=== PATIENT | female | born 1940 | race African-American/Black ===

== ENCOUNTER 2016-04-02 22:10 | Inpatient (IN) | payer MEDICAID, MEDICARE ==
[~2016-04-02] VITALS: Ht 160 cm; Wt 72.6 kg
[~2016-04-02 22:10] MED LIST: ANUSOL HC1 SUPP RECTAL; ATIVAN0.5 MG ORAL; BRIMONIDINE TART5 ML BOTH EYES; CATAPRES0.1 MG ORAL; CLARITIN10 M2 ORAL; COLACE100 MG ORAL; DIAZEPAM2 MG ORAL; FUROSEMIDE20 M1 ORAL; IRON18 M1 PO; LACTULOSE20 GM/301 ORAL; LANSOPRAZOLE15 MG ORAL; METFORMIN HCL500 M1 ORAL; METOPROLOL TART25 MG ORAL; METOPROLOL TART50 MG ORAL; MIRALAX17 G2 ORAL; OMEPRAZOLE40 M1 ORAL; POTASSIUM99 M3 PO; PROTONIX40 MG ORAL; QVAR7.3 GM INH; RISPERDAL1 MG ORAL; RISPERIDONE1 MG/1 ML PO; TRAMADOL HCL50 MG ORAL; UNOBMED; ZALEPLON10 MG ORAL; ZOLPIDEM TARTRAT5 MG ORAL
[2016-04-02 22:17] VITALS: BP 167/56
--- NOTE | 2016-04-02 22:40 | Emergency Room Report ---
History of Present Illness General Chief Complaint: Generalized Weakness Source: Patient, Medical Record, EMS Present Illness HPI Is a 74-year-old female with a history of CAD. She presents with chief complaint of generalized weakness and altered mental status. Onset for about a day. No focal deficit. No fever or chills. Patient is a poor historian so history is from EMS who took it from family. History is also from medical records. Patient denies any complaint. Allergies: Coded Allergies: No Known Allergies (Unverified , 12/05/12) Patient History Past Medical History: see triage record, old chart reviewed, CAD Past Surgical History: other Pertinent Family History: none Social History: Denies: smoking Now: No Immunizations: other Reviewed Nursing Documentation: PMH: Agreed, PSxH: Agreed Nursing Documentation-PMH Past Medical History: No History, Except For Hx Hypertension: Yes Hx Diabetes: Yes Hx Cancer: No Hx Gastrointestinal Problems: Yes Hx Dementia: Yes Review of Systems Constitutional: Reports: weakness All Other Systems: limited - Secondary to patient condition and poor historian. Physical Exam Vital Signs Date Time Temp Pulse Resp B/P Pulse Ox O2 Delivery O2 Flow Rate FiO2 04/02/16 22:07 97.2 69 14 139/56 100 Room Air vitals normal Sp02 EP Interpretation: reviewed, normal General Appearance: other - Sleepy, Chronically Ill Head: normocephalic, atraumatic Eyes: bilateral eye EOMI, bilateral eye PERRL, bilateral eye other - pale conjunctiva ENT: hearing grossly normal, normal pharynx Neck: full range of motion, supple, no meningismus Respiratory: chest non-tender, lungs clear, normal breath sounds Cardiovascular #1: regular rate, rhythm, no murmur Gastrointestinal: normal bowel sounds, non tender, no mass, no organomegaly, no bruit, non-distended Musculoskeletal: back normal, normal range of motion Neurologic: other - No focal deficit Psychiatric: mood/affect normal Skin: warm/dry, pallor Procedures Critical Care Time Critical Care Time Critical care is mandated in this patient who presented with severe anemia requiring transfusion. Patient require my urgent intervention to attenuate the risks of metabolic collapse which may lead to cardiovascular collapse and . Critical care time is 35 minutes excluding any reportable procedure. Critical care time included evaluation, multiple reevaluation, looking at old charts, interpreting laboratory and diagnostic data, discussing case with patient and family and consultants, and charting. Medical Decision Making Diagnostic Impression: Primary Impression: Anemia Qualified Codes: D64.9 - Anemia, unspecified Additional Impressions: Hepatic encephalopathy Proteinuria CHF exacerbation Qualified Codes: I50.9 - Heart failure, unspecified Thrombocytopenia ER Course Patient presents with weakness and altered mental status. She looks very pale and has severe anemia. We'll write for blood transfusion. Patient will be admitted for blood transfusion. I discussed the case with Dr. Segura who will admit. No evidence of ACS, PE, dissection to name a few. Laboratory Tests Test 04/02/16 22:30 04/03/16 00:20 White Blood Count 3.7 K/UL (4.8-10.8) L Red Blood Count 1.39 M/UL (4.20-5.40) L Hemoglobin 3.1 G/DL (12.0-16.0) *L Hematocrit 11.0 % (37.0-47.0) L Mean Corpuscular Volume 79 FL (80-99) L Mean Corpuscular Hemoglobin 22.4 PG (27.0-31.0) L Mean Corpuscular Hemoglobin Concent 28.3 G/DL (32.0-36.0) L Red Cell Distribution Width 24.8 % (11.6-14.8) H Platelet Count 92 K/UL (150-450) L Mean Platelet Volume 12.2 FL (6.5-10.1) H Neutrophils (%) (Auto) % (45.0-75.0) Lymphocytes (%) (Auto) % (20.0-45.0) Monocytes (%) (Auto) % (1.0-10.0) Eosinophils (%) (Auto) % (0.0-3.0) Basophils (%) (Auto) % (0.0-2.0) Neutrophils % (Manual) Pending Lymphocytes % (Manual) Pending Platelet Estimate Pending Platelet Morphology Pending Prothrombin Time 14.7 SEC (9.30-11.50) H Prothromb Time International Ratio 1.4 (0.9-1.1) H Activated Partial Thromboplast Time 28 SEC (23-33) Urine Color Yellow Urine Appearance Clear Urine pH 6 (4.5-8.0) Urine Specific [place] 1.015 (1.005-1.035) Urine Protein 2+ (NEGATIVE) H Urine Glucose (UA) Negative (NEGATIVE) Urine Ketones 2+ (NEGATIVE) H Urine Occult Blood Negative (NEGATIVE) Urine Nitrite Negative (NEGATIVE) Urine Bilirubin Negative (NEGATIVE) Urine Urobilinogen 1 MG/DL (0.0-1.0) H Urine Leukocyte Esterase 1+ (NEGATIVE) H Urine RBC 0-2 /HPF (0 - 2) Urine WBC 0-2 /HPF (0 - 2) Urine Squamous Epithelial Cells Moderate /LPF (NONE/OCC) H Urine Bacteria Few /HPF (NONE) Sodium Level 144 mEQ/L (135-145) Potassium Level 4.1 mEQ/L (3.4-4.9) Chloride Level 109 mEQ/L (98-107) H Carbon Dioxide Level 18 mEQ/L (20-30) L Anion Gap 17 (5-15) H Blood Urea Nitrogen 14 mg/dL (7-23) Creatinine 1.0 mg/dL (0.5-0.9) H Estimat Glomerular Filtration Rate mL/min (>60) Glucose Level 95 mg/dL (74-106) Calcium Level 8.6 mg/dL (8.6-10.2) Total Bilirubin 2.9 mg/dL (0.0-1.2) H Direct Bilirubin 1.8 mg/dL (0.1-0.3) H Aspartate Amino Transf (AST/SGOT) 57 U/L (5-40) H Alanine Aminotransferase (ALT/SGPT) 15 U/L (3-33) Alkaline Phosphatase 91 U/L (35-104) Total Creatine Kinase 60 U/L (26-140) Creatine Kinase MB < 1.5 ng/mL (< 3.8) Creatine Kinase MB Relative Index Troponin I < 0.30 ng/mL (<=0.30) Pro-B-Type Natriuretic Peptide 2376 pg/mL (0-125) H Total Protein 6.2 g/dL (6.6-8.7) L Albumin 2.9 g/dL (3.5-5.2) L Globulin 3.3 g/dL Albumin/Globulin Ratio 0.8 (1.0-2.7) L Ammonia Pending Lab Results Impression labs show severe anemia EKG Diagnostic Results Rate: normal Rhythm: NSR ST Segments: no acute changes Rhythm Strip Diag. Results EP Interpretation: yes Rate: 60 Rhythm: NSR, no PVC's, no ectopy Chest X-Ray Diagnostic Results EP Interpretation: Yes Findings: no effusion, no pneumothorax, no acute cardiopulmonary disease, other - Cardiomegaly with CHF Number of Views: 1 Last Vital Signs Date Time Temp Pulse Resp B/P Pulse Ox O2 Delivery O2 Flow Rate FiO2 04/02/16 22:17 62 10 167/56 100 Room Air 04/02/16 22:07 97.2 Status: improved Disposition: ADMITTED INPATIENT Condition: Critical PHOENIX WALKER M.D. Apr 02, 2016 22:40
[2016-04-02 22:56] LABS: INR 1.4 (0.9-1.1); PROTHROMBIN TIME 14.7 SEC (9.30-11.50)
[2016-04-02 23:01] LABS: ALANINE AMINOTRANSFERASE 15 U/L (3-33); ALBUMIN/GLOBULIN RATIO 0.8 (1.0-2.7); ANION GAP 17 (5-15); ASPARTATE AMINO TRANSFERASE 57 U/L (5-40); CALCIUM 8.6 mg/dL (8.6-10.2); CARBON DIOXIDE 18 mEQ/L (20-30); CHLORIDE 109 mEQ/L (98-107); HEMOLYSIS 0; POTASSIUM 4.1 mEQ/L (3.4-4.9); SODIUM 144 mEQ/L (135-145); TOTAL PROTEIN 6.2 g/dL (6.6-8.7); TROPONIN I < 0.30 ng/mL (<=0.30)
[2016-04-02 23:06] LABS: APPEARANCE,URINE CLEAR; KETONES,URINE 2+ (NEGATIVE); LEUKOCYTE ESTERASE ,URINE 1+ (NEGATIVE); NITRITE,URINE NEGATIVE (NEGATIVE); PH,URINE 6 (4.5-8.0); PROTEIN,URINE 2+ (NEGATIVE); UROBILINOGEN,URINE 1 MG/DL (0.0-1.0)
[2016-04-02 23:13] LABS: CKMB < 1.5 ng/mL (< 3.8)
[2016-04-02] MEDS ORDERED: Mylanta II UD 30ml ORAL PRN (23:15)
[2016-04-02] MEDS ORDERED: Nitroglycerin Subl 0.4mg tab (Bottle Of 25) SL PRN (23:15)
[2016-04-02] MEDS ORDERED: Morphine Sulfate 2mg/ml Inj IVP PRN (23:15)
[2016-04-02] MEDS ORDERED: Miralax 17gm pkt ORAL PRN (23:15)
[2016-04-02 23:24] LABS: BILIRUBIN,DIRECT 1.8 mg/dL (0.1-0.3)
[2016-04-02 23:49] LABS: BACTERIA,URINE FEW /HPF; RBC,URINE 0-2 /HPF (0 - 2); SQUAMOUS EPITHELIAL CELL,UR MODERATE /LPF (NONE/OCC); WBC,URINE 0-2 /HPF (0 - 2)
[2016-04-02 23:50] VITALS: BP 138/57
[2016-04-02 23:53] LABS: MEAN CORPUSCULAR HEMOGLOBIN 22.4 PG (27.0-31.0); MEAN CORPUSCULAR HGB CONC 28.3 G/DL (32.0-36.0); MEAN CORPUSCULAR VOLUME 79 FL (80-99); MEAN PLATELET VOLUME 12.2 FL (6.5-10.1); PLATELET COUNT 92 K/UL (150-450); RED BLOOD COUNT 1.39 M/UL (4.20-5.40); RED CELL DISTRIBUTION WIDTH 24.8 % (11.6-14.8); WHITE BLOOD COUNT 3.7 K/UL (4.8-10.8)
[2016-04-03] VITALS (8 sets, daily range): BP systolic 122–156; BP diastolic 40–72
[2016-04-03] MEDS ORDERED: UNOBMED (00:02)
[2016-04-03] MEDS: D5 1/2NS 1,000 ML IV SCH ×2 (01:00→14:20)
[2016-04-03 03:13] LABS: BASOPHILS % (MANUAL) 5 % (0-2); EOSINOPHILS % (MANUAL) 4 % (0-3); LYMPHOCYTES % (MANUAL) 18 % (20-45); NEUTROPHILS % (MANUAL) 63 % (45-75); TOTAL CELLS COUNTED 100
[2016-04-03 03:14] LABS: ANISOCYTOSIS 2+; BAND NEUTROPHILS % (MANUAL) 0 % (0-8); PLATELET ESTIMATE DECREASED; POIKILOCYTOSIS 2+
[2016-04-03 03:17] LABS: OVALOCYTES 1+
[2016-04-03 03:18] LABS: TEAR DROP CELLS 1+
--- NOTE | 2016-04-03 12:22 | History and Physical ---
History of Present Illness General Date patient seen: Apr 03, 2016 Reason for Hospitalization: Generalized Weakness Present Illness HPI 74-year-old female with a history of CAD, cirrhosis brought in by paramedics with CC of eneralized weakness and altered mental status. O Patient is a poor historian so history is from EMS who took it from family. History is also from medical records. Her hemoglobin was found to be 3. therefore she is admitted to telemetry. Currently she is sleepy and can't give much information. Allergies: Coded Allergies: No Known Allergies (Unverified , 12/05/12) Medication History Scheduled Docusate Sodium* (Colace*), 100 MG ORAL TWICE A DAY Hydrocortisone (Anucort-Hc), 1 SUPP RECTAL TWICE A DAY Metoprolol Tartrate* (Metoprolol Tartrate*), 50 MG ORAL Q12HR Pantoprazole* (Protonix*), 40 MG ORAL Q12HR Risperidone* (Risperdal*), 1 MG ORAL BEDTIME Scheduled PRN Polyethylene Glycol 3350* (Miralax*), 17 GM ORAL DAILYPRN PRN for Constipation Miscellaneous Medications Unable to Obtain Medications (Unable To Obtain Meds), (Reported) Unable to Obtain Medications (Unable To Obtain Meds), (Reported) Patient History Healthcare decision maker Resuscitation status Full Code Advanced Directive on File Past Medical/Surgical History Past Medical/Surgical History: (1) Severe anemia (2) Hepatic encephalopathy (3) Schizoaffective disorder (4) HTN (hypertension) (5) Cirrhosis (6) Thrombocytopenia (7) Elevated CEA (8) Coagulopathy Review of Systems Constitutional: Reports: no symptoms Physical Exam Lines, tubes and drains: peripheral HEENT: normocephalic Neck: non-tender, normal alignment Respiratory/Chest: chest wall non-tender, lungs clear Cardiovascular/Chest: normal peripheral pulses Abdomen: normal bowel sounds Last 24 Hour Vital Signs Date Time Temp Pulse Resp B/P Pulse Ox O2 Delivery O2 Flow Rate FiO2 04/03/16 11:20 97.7 72 18 134/68 98 Room Air 04/03/16 08:00 81 04/03/16 07:57 97.5 71 18 154/64 97 Room Air 04/03/16 04:00 97.7 64 16 129/56 95 Room Air 04/03/16 03:39 97.0 71 12 131/58 100 Room Air 04/03/16 03:22 71 12 131/58 100 Room Air 04/03/16 02:07 97.0 66 11 133/59 100 Room Air 04/03/16 01:11 64 11 122/40 100 Room Air 04/02/16 23:50 97.0 67 12 138/57 100 Room Air 04/02/16 22:17 62 10 167/56 100 Room Air 04/02/16 22:07 97.2 69 14 139/56 100 Room Air Intake and Output 04/02/16 04/03/16 19:00 07:00 Intake Total 1000 ml Output Total 665 ml Balance 335 ml Intake Oral 0 ml IV Total 1000 ml Output Urine Total 665 ml Laboratory Tests Test 04/02/16 22:30 04/03/16 00:20 White Blood Count 3.7 K/UL (4.8-10.8) L Red Blood Count 1.39 M/UL (4.20-5.40) L Hemoglobin 3.1 G/DL (12.0-16.0) *L Hematocrit 11.0 % (37.0-47.0) L Mean Corpuscular Volume 79 FL (80-99) L Mean Corpuscular Hemoglobin 22.4 PG (27.0-31.0) L Mean Corpuscular Hemoglobin Concent 28.3 G/DL (32.0-36.0) L Red Cell Distribution Width 24.8 % (11.6-14.8) H Platelet Count 92 K/UL (150-450) L Mean Platelet Volume 12.2 FL (6.5-10.1) H Neutrophils (%) (Auto) % (45.0-75.0) Lymphocytes (%) (Auto) % (20.0-45.0) Monocytes (%) (Auto) % (1.0-10.0) Eosinophils (%) (Auto) % (0.0-3.0) Basophils (%) (Auto) % (0.0-2.0) Differential Total Cells Counted 100 Neutrophils % (Manual) 63 % (45-75) Lymphocytes % (Manual) 18 % (20-45) L Monocytes % (Manual) 10 % (1-10) Eosinophils % (Manual) 4 % (0-3) H Basophils % (Manual) 5 % (0-2) H Band Neutrophils 0 % (0-8) Platelet Estimate Decreased L Platelet Morphology See comment Poikilocytosis 2+ Anisocytosis 2+ Tear Drop Cells 1+ Ovalocytes 1+ Prothrombin Time 14.7 SEC (9.30-11.50) H Prothromb Time International Ratio 1.4 (0.9-1.1) H Activated Partial Thromboplast Time 28 SEC (23-33) Urine Color Yellow Urine Appearance Clear Urine pH 6 (4.5-8.0) Urine Specific [place] 1.015 (1.005-1.035) Urine Protein 2+ (NEGATIVE) H Urine Glucose (UA) Negative (NEGATIVE) Urine Ketones 2+ (NEGATIVE) H Urine Occult Blood Negative (NEGATIVE) Urine Nitrite Negative (NEGATIVE) Urine Bilirubin Negative (NEGATIVE) Urine Urobilinogen 1 MG/DL (0.0-1.0) H Urine Leukocyte Esterase 1+ (NEGATIVE) H Urine RBC 0-2 /HPF (0 - 2) Urine WBC 0-2 /HPF (0 - 2) Urine Squamous Epithelial Cells Moderate /LPF (NONE/OCC) H Urine Bacteria Few /HPF (NONE) Sodium Level 144 mEQ/L (135-145) Potassium Level 4.1 mEQ/L (3.4-4.9) Chloride Level 109 mEQ/L (98-107) H Carbon Dioxide Level 18 mEQ/L (20-30) L Anion Gap 17 (5-15) H Blood Urea Nitrogen 14 mg/dL (7-23) Creatinine 1.0 mg/dL (0.5-0.9) H Estimat Glomerular Filtration Rate mL/min (>60) Glucose Level 95 mg/dL (74-106) Calcium Level 8.6 mg/dL (8.6-10.2) Total Bilirubin 2.9 mg/dL (0.0-1.2) H Direct Bilirubin 1.8 mg/dL (0.1-0.3) H Aspartate Amino Transf (AST/SGOT) 57 U/L (5-40) H Alanine Aminotransferase (ALT/SGPT) 15 U/L (3-33) Alkaline Phosphatase 91 U/L (35-104) Total Creatine Kinase 60 U/L (26-140) Creatine Kinase MB < 1.5 ng/mL (< 3.8) Creatine Kinase MB Relative Index Troponin I < 0.30 ng/mL (<=0.30) Pro-B-Type Natriuretic Peptide 2376 pg/mL (0-125) H Total Protein 6.2 g/dL (6.6-8.7) L Albumin 2.9 g/dL (3.5-5.2) L Globulin 3.3 g/dL Albumin/Globulin Ratio 0.8 (1.0-2.7) L Ammonia 47 umol/L (11-51) Height (Feet): 5 Height (Inches): 3.00 Weight (Pounds): 160 Medications Current Medications Medications (Trade) Dose Ordered Sig/Bing Route PRN Reason Start Time Stop Time Status Last Admin Dose Admin Acetaminophen (Tylenol) 650 mg Q4H PRN ORAL fever 04/02/16 23:15 05/02/16 23:14 Al Hydroxide/Mg Hydroxide (Mylanta II) 30 ml Q6H PRN ORAL dyspepsia 04/02/16 23:15 05/02/16 23:14 Dextrose (Dextrose 50%) STAT PRN IV Hypoglycemia 04/02/16 23:15 05/02/16 23:14 Dextrose/Sodium Chloride (D5 0.45% NS) 1,000 ml @ 75 mls/hr [id number] IV 04/03/16 01:00 05/03/16 00:59 Diphenhydramine HCl (Benadryl) 25 mg Q6H PRN ORAL Itching/Pruritis 04/02/16 23:15 05/02/16 23:14 Morphine Sulfate (Morphine Sulfate) 2 mg Q4H PRN IVP severe Pain (Pain Scale 7-10) 04/02/16 23:15 04/09/16 23:14 Nitroglycerin (Ntg) 0.4 mg Q5M X 3 DOSES PRN SL Prn Chest Pain 04/02/16 23:15 05/02/16 23:14 Ondansetron HCl (Zofran) 4 mg Q6H PRN IVP Nausea & Vomiting 04/02/16 23:15 05/02/16 23:14 Polyethylene Glycol (Miralax) 17 gm HSPRN PRN ORAL Constipation 04/02/16 23:15 05/02/16 23:14 Risperidone 1 mg 1 mg BEDTIME ORAL 04/03/16 21:00 05/03/16 20:59 Temazepam (Restoril) 15 mg HSPRN PRN ORAL Insomnia 04/02/16 23:15 04/09/16 23:14 Assessment/Plan Problem List: (1) Severe anemia ICD Codes: D64.9 - Anemia, unspecified SNOMED: 585059842 (2) Cirrhosis ICD Codes: K74.60 - Unspecified cirrhosis of liver SNOMED: 71516993 (3) Coagulopathy ICD Codes: D68.9 - Coagulation defect, unspecified SNOMED: 58858207 (4) Elevated CEA ICD Codes: R97.0 - Elevated carcinoembryonic antigen [CEA] SNOMED: 65950785, 763919233 (5) Thrombocytopenia ICD Codes: D69.6 - Thrombocytopenia SNOMED: 385237652 (6) Schizoaffective disorder ICD Codes: F25.9 - Schizoaffective disorder, unspecified SNOMED: 84590358 (7) HTN (hypertension) ICD Codes: I10 - Essential (primary) hypertension SNOMED: 93503964 Assessment/Plan transfuse 5-6 units check coagulation GI work up. correct coagulopathy check h/h in am check CEA again GENESIS ANDRES Apr 03, 2016 12:21
[2016-04-03] MEDS ORDERED: Phytonadione 10 MG in D5W 50 ML IVPB ONE ×2 (14:00→16:00)
--- NOTE | 2016-04-03 15:30 | GI Initial Consult Note ---
AshleyMaris Villagran N.P. 04/03/16 1529: History of Present Illness General Date patient seen: Apr 03, 2016 Reason for Hospitalization: Generalized Weakness Referring physician: GENESIS ANDRES Reason for Consultation: ANEMIA Present Illness HPI Is a 74-year-old female with a history of CAD. She presents with chief complaint of generalized weakness and altered mental status. Onset for about a day. No focal deficit. No fever or chills. Patient is a poor historian so history is from EMS who took it from family. History is also from medical records. Patient denies any complaint. GI CONSULT - HPI as noted. Pt seen on floor, awake, alert AMS NAD. No active signs/sx of N/V or source of bleeding. Pt denies any abdominal pain and denies any diarrhea. Pt was seen last year here at [facility] with noted findings and procedures as listed below. She presents today with pancytopenia, abnormal LFTs and hypoalbuminemia. Last admission AP CT impression: Areas of colon wall thickening, probably artifact of under distention, although colitis cannot be completely excluded. No definite acute abdominal process otherwise Somewhat atrophic liver with nodular surface characteristics, consistent with cirrhosis Evidence of portal hypertension, presumed secondary to the above, with mild splenomegaly, multiple varices as described Anasarca, with extensive abdominal wall edema, in addition to the above mentioned ascites and pleural fluid Cholelithiasis. Gallbladder wall edema is probably secondary to portal hypertension, but acute cholecystitis cannot be completely ruled out. There is high clinical suspicion, and nuclear medicine hepatobiliary scan should be considered DATE OF PROCEDURE: 06/01/2015 SURGEON: Kenneth Hickman M.D. INDICATIONS: Cirrhosis and upper gastrointestinal bleeding. SUMMARY OF FINDINGS: 1. Gastritis, status post biopsy. 2. One gastric arteriovenous malformation. 3. 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 RECOMMENDATIONS: 1. Follow up biopsies and treat accordingly. 2. If the patient shows any sign and symptoms of recurrent upper gastrointestinal bleeding, may need another endoscopy with APC of the AVM and also the GAVE when the platelets are better. DATE OF PROCEDURE: 07/10/2015 SURGEON: Kenneth Hickman M.D. PROCEDURE PERFORMED: Colonoscopy. INDICATIONS: Anemia. SUMMARY OF FINDINGS: 1. Poor colonoscopy prep especially in the right colon. 2. No obvious source for anemia. 3. Internal hemorrhoids. RECOMMENDATIONS: At this time, the patient had an endoscopy almost over a month ago which had some arteriovenous malformations in the stomach which were cauterized. If the patient continues to have drop in hemoglobin and hematocrit with stool OB positivity may need a capsule endoscopy for evaluation of the small intestine arteriovenous malformations although with this patient's current psychiatric problem will be very difficult to get that test done. We will follow. Home Meds Active Scripts Docusate Sodium* (COLACE*) 100 Mg Capsule, 100 MG ORAL TWICE A DAY, #60 CAP Prov:Skip ([facility]),Liz PRINCE 07/11/15 Risperidone* (RISPERDAL*) 1 Mg Tablet, 1 MG ORAL BEDTIME, #30 TAB Prov:Skip ([facility])Liz NP 07/10/15 Polyethylene Glycol 3350* (MIRALAX*) 17 Gm Powd.pack, 17 GM ORAL DAILYPRN Y for Constipation, #10 PACK Prov:Skip ([facility]),Liz PRINCE 07/10/15 Hydrocortisone (Anucort-Hc) Y Supp, 1 SUPP RECTAL TWICE A DAY, #30 SUPP Prov:Skip ([facility])iLz NP 07/10/15 Pantoprazole* (PROTONIX*) 40 Mg Tablet.dr, 40 MG ORAL Q12HR, #60 TAB Prov:Skip ([facility])Liz NP 06/05/15 Metoprolol Tartrate* (METOPROLOL TARTRATE*) 50 Mg Tablet, 50 MG ORAL Q12HR, #60 TAB Prov:Skip ([facility]),Liz PACKAGE COLLECTOR 06/05/15 Reported Medications Unable to Obtain Medications (UNABLE TO OBTAIN MEDS) 1 Ea Ea 04/03/16 Unable to Obtain Medications (UNABLE TO OBTAIN MEDS) 1 Ea Ea 05/29/15 Med list reviewed/reconciled: Yes Allergies: Coded Allergies: No Known Allergies (Unverified , 12/05/12) Patient History Limited by: medical condition History Provided By: Medical Record [facility] Narrative PAST MEDICAL HISTORY: Significant for rhabdomyolysis, UTI, sepsis, pneumonia, iron-deficiency anemia, thrombocytopenia, hypovolemia, albuminemia, elevated CEA, and end-stage liver disease. PAST PSYCHIATRIC HISTORY: She is diagnosed with schizophrenia and has had several psychiatric hospitalizations. The patient is currently being treated with temazepam and lorazepam. The patient is on no antipsychotics. Review of Systems All Other Systems: limited Physical Exam Vital Signs Date Time Temp Pulse Resp B/P Pulse Ox O2 Delivery O2 Flow Rate FiO2 04/02/16 22:07 97.2 69 14 139/56 100 Room Air Sp02 EP Interpretation: reviewed Labs Laboratory Tests Test 04/02/16 22:30 04/03/16 00:20 White Blood Count 3.7 K/UL (4.8-10.8) L Red Blood Count 1.39 M/UL (4.20-5.40) L Hemoglobin 3.1 G/DL (12.0-16.0) *L Hematocrit 11.0 % (37.0-47.0) L Mean Corpuscular Volume 79 FL (80-99) L Mean Corpuscular Hemoglobin 22.4 PG (27.0-31.0) L Mean Corpuscular Hemoglobin Concent 28.3 G/DL (32.0-36.0) L Red Cell Distribution Width 24.8 % (11.6-14.8) H Platelet Count 92 K/UL (150-450) L Mean Platelet Volume 12.2 FL (6.5-10.1) H Neutrophils (%) (Auto) % (45.0-75.0) Lymphocytes (%) (Auto) % (20.0-45.0) Monocytes (%) (Auto) % (1.0-10.0) Eosinophils (%) (Auto) % (0.0-3.0) Basophils (%) (Auto) % (0.0-2.0) Differential Total Cells Counted 100 Neutrophils % (Manual) 63 % (45-75) Lymphocytes % (Manual) 18 % (20-45) L Monocytes % (Manual) 10 % (1-10) Eosinophils % (Manual) 4 % (0-3) H Basophils % (Manual) 5 % (0-2) H Band Neutrophils 0 % (0-8) Platelet Estimate Decreased L Platelet Morphology See comment Poikilocytosis 2+ Anisocytosis 2+ Tear Drop Cells 1+ Ovalocytes 1+ Prothrombin Time 14.7 SEC (9.30-11.50) H Prothromb Time International Ratio 1.4 (0.9-1.1) H Activated Partial Thromboplast Time 28 SEC (23-33) Urine Color Yellow Urine Appearance Clear Urine pH 6 (4.5-8.0) Urine Specific [place] 1.015 (1.005-1.035) Urine Protein 2+ (NEGATIVE) H Urine Glucose (UA) Negative (NEGATIVE) Urine Ketones 2+ (NEGATIVE) H Urine Occult Blood Negative (NEGATIVE) Urine Nitrite Negative (NEGATIVE) Urine Bilirubin Negative (NEGATIVE) Urine Urobilinogen 1 MG/DL (0.0-1.0) H Urine Leukocyte Esterase 1+ (NEGATIVE) H Urine RBC 0-2 /HPF (0 - 2) Urine WBC 0-2 /HPF (0 - 2) Urine Squamous Epithelial Cells Moderate /LPF (NONE/OCC) H Urine Bacteria Few /HPF (NONE) Sodium Level 144 mEQ/L (135-145) Potassium Level 4.1 mEQ/L (3.4-4.9) Chloride Level 109 mEQ/L (98-107) H Carbon Dioxide Level 18 mEQ/L (20-30) L Anion Gap 17 (5-15) H Blood Urea Nitrogen 14 mg/dL (7-23) Creatinine 1.0 mg/dL (0.5-0.9) H Estimat Glomerular Filtration Rate mL/min (>60) Glucose Level 95 mg/dL (74-106) Calcium Level 8.6 mg/dL (8.6-10.2) Total Bilirubin 2.9 mg/dL (0.0-1.2) H Direct Bilirubin 1.8 mg/dL (0.1-0.3) H Aspartate Amino Transf (AST/SGOT) 57 U/L (5-40) H Alanine Aminotransferase (ALT/SGPT) 15 U/L (3-33) Alkaline Phosphatase 91 U/L (35-104) Total Creatine Kinase 60 U/L (26-140) Creatine Kinase MB < 1.5 ng/mL (< 3.8) Creatine Kinase MB Relative Index Troponin I < 0.30 ng/mL (<=0.30) Pro-B-Type Natriuretic Peptide 2376 pg/mL (0-125) H Total Protein 6.2 g/dL (6.6-8.7) L Albumin 2.9 g/dL (3.5-5.2) L Globulin 3.3 g/dL Albumin/Globulin Ratio 0.8 (1.0-2.7) L Ammonia 47 umol/L (11-51) General Appearance: no apparent distress, alert Head: normocephalic EENT: normal ENT inspection Neck: supple Respiratory: normal breath sounds, no respiratory distress Cardiovascular: normal rate Gastrointestinal: normal inspection, non tender, soft Rectal: deferred Neurologic: alert Skin: normal inspection, normal color, no rash, warm/dry Lymphatic: normal inspection, no adenopathy Current Medications Current Medications Medications (Trade) Dose Ordered Sig/Bing Route PRN Reason Start Time Stop Time Status Last Admin Dose Admin Acetaminophen (Tylenol) 650 mg Q4H PRN ORAL fever 04/02/16 23:15 05/02/16 23:14 Al Hydroxide/Mg Hydroxide (Mylanta II) 30 ml Q6H PRN ORAL dyspepsia 04/02/16 23:15 05/02/16 23:14 Dextrose STAT PRN IV Hypoglycemia 04/02/16 23:15 05/02/16 23:14 Dextrose/Sodium Chloride (D5 0.45% NS) 1,000 ml @ 75 mls/hr [id number] IV 04/03/16 01:00 05/03/16 00:59 Diphenhydramine HCl (Benadryl) 25 mg Q6H PRN ORAL Itching/Pruritis 04/02/16 23:15 05/02/16 23:14 Morphine Sulfate (Morphine Sulfate) 2 mg Q4H PRN IVP severe Pain (Pain Scale 7-10) 04/02/16 23:15 04/09/16 23:14 Nitroglycerin (Ntg) 0.4 mg Q5M X 3 DOSES PRN SL Prn Chest Pain 04/02/16 23:15 05/02/16 23:14 Octreotide Acetate 500 mcg/ Sodium Chloride 500 ml @ 50 mls/hr Q10H IV 04/03/16 16:00 05/03/16 15:59 Ondansetron HCl (Zofran) 4 mg Q6H PRN IVP Nausea & Vomiting 04/02/16 23:15 05/02/16 23:14 Pantoprazole 80 mg/Sodium Chloride 250 ml @ 25 mls/hr Q10H IV 04/03/16 16:00 05/03/16 15:59 Phytonadione/ Dextrose (Vitamin K/D5W) 51 ml @ 100 mls/hr ONCE ONCE IVPB 04/03/16 16:00 04/03/16 16:30 Polyethylene Glycol (Miralax) 17 gm HSPRN PRN ORAL Constipation 04/02/16 23:15 05/02/16 23:14 Risperidone 1 mg 1 mg BEDTIME ORAL 04/03/16 21:00 05/03/16 20:59 Temazepam (Restoril) 15 mg HSPRN PRN ORAL Insomnia 04/02/16 23:15 04/09/16 23:14 GI: Plan Problems: (1) Esophageal varices in cirrhosis (2) Severe anemia (3) Elevated CEA (4) Schizoaffective disorder (5) Cirrhosis (6) Hepatic encephalopathy (7) Altered mental status (8) End stage liver disease (9) Hypoalbuminemia (10) Anemia (11) Iron deficiency (12) Pancreatic mass Plan pt scheduled EGD tomorrow to evaluate for esophageal varices given hx of liver cirrhosis - CLD, NPO @ [facility] octreotide gtt ppi gtt monitor H&H, transfuse prn ordered ammonia level ordered AP CT to evaluate hx of pancreatic mass ordered iron panel fu labs Discussed with Dr. Hickman. Thank you for referring this patient, we will follow. KENNETH HICKMAN 04/07/16 0816: History of Present Illness General Reason for Hospitalization: Generalized Weakness Present Illness Home Meds Active Scripts Docusate Sodium* (COLACE*) 100 Mg Capsule, 100 MG ORAL TWICE A DAY, #60 CAP Prov:Liz Valdivia NP ([facility]) 07/11/15 Risperidone* (RISPERDAL*) 1 Mg Tablet, 1 MG ORAL BEDTIME, #30 TAB Prov:Liz Valdivia NP ([facility]) 07/10/15 Polyethylene Glycol 3350* (MIRALAX*) 17 Gm Powd.pack, 17 GM ORAL DAILYPRN Y for Constipation, #10 PACK Prov:Liz Valdivia NP ([facility]) 07/10/15 Hydrocortisone (Anucort-Hc) Y Supp, 1 SUPP RECTAL TWICE A DAY, #30 SUPP Prov:Liz Valdivia NP ([facility]) 07/10/15 Pantoprazole* (PROTONIX*) 40 Mg Tablet.dr 40 MG ORAL Q12HR, #60 TAB Prov:Liz Valdivia NP ([facility]) 06/05/15 Metoprolol Tartrate* (METOPROLOL TARTRATE*) 50 Mg Tablet, 50 MG ORAL Q12HR, #60 TAB Prov:Skip ([facility])Liz PACKAGE COLLECTOR 06/05/15 Reported Medications Unable to Obtain Medications (UNABLE TO OBTAIN MEDS) 1 Ea Ea 04/03/16 Unable to Obtain Medications (UNABLE TO OBTAIN MEDS) 1 Ea Ea 05/29/15 Allergies: Coded Allergies: No Known Allergies (Unverified , 12/05/12) GI: Plan Plan The patient was seen and examined at bedside and all new and available data was reviewed in the patients chart. I agree with the above findings, impression and plan. (Patient seen earlier today. Signature stamp does not reflect patient encounter time.). -Kenneth RamirezCity Of Hope, [place] Tyshawn N.PSuman Apr 03, 2016 15:29 KENNETH HICKMAN Apr 07, 2016 08:16
--- NOTE | 2016-04-03 15:53 | Diagnostic Imaging Report ---
Indication: Abdominal pain, abnormal liver function tests, abnormal renal function tests Technique: Neil-scale and duplex images of the upper abdomen were obtained Comparison: 12/07/2012. Reference also made to abdomen pelvis CT dated 06/27/2015 Findings: . Gallbladder demonstrates gallstones. These are described on recent CT scan, were not evident on prior ultrasound, however. Technologist reports that the sonographic Gonzalez sign is positive. There is borderline gallbladder wall thickening, gallbladder wall measuring 4 mm thick. No pericholecystic fluid.. Common bile duct measures 3 mm in diameter. No intrahepatic biliary ductal dilatation. Liver demonstrates diffusely heterogeneous echogenicity, with multiple areas of increased echogenicity in patchy distribution which are not evident on the prior ultrasound. No corresponding liver masses seen on prior CT scan either. The liver surface is nodular.. The portal vein is occluded, no color-flow is demonstrated. Hypoechoic material is seen within it.. Abdominal varices are again demonstrated Pancreas is obscured by bowel gas. Spleen is upper limits of normal in size, previously described as enlarged. Left kidney measures 11.7 cm in length. Right kidney measures 10.6 cm length. Both kidneys demonstrate normal echogenicity. There is no hydronephrosis. No focal abnormality. . Abdominal aorta is partially obscured by bowel gas, visualized portions are non-aneurysmal. There is trace ascites, also previously described Impression: Cholelithiasis. Positive sonographic Gonzalez's sign raises concern for acute cholecystitis. Gallbladder wall thickening may also indicate acute cholecystitis, but could also be secondary to hepatic cirrhosis. Consider nuclear medicine hepatobiliary scan for for evaluation Negative for dilated ducts Markedly abnormal liver. There are findings consistent with cirrhosis, also previously described. However, the markedly patchy and heterogeneous echogenicity evident currently and not previously raises concern for diffuse infiltration with tumor. Consider contrast CT for further evaluation New finding of portal vein thrombosis, not evident on June 2015 CT. This could indicate portal vein thrombosis, or portal vein invasion by tumor. Again, contrast CT may be useful as clinically indicated Noted ability to visualize the pancreas and portions of the abdominal aorta
[2016-04-03] MEDS: Pantoprazole 80 MG in NS 250 ML IV SCH (16:00)
[2016-04-03] MEDS ORDERED: Tubing Blood Filter IV ONE (17:00)
[2016-04-03] MEDS: Octreotide Acetate 500 MCG in Sodium Chloride 499 ML IV SCH (17:24)
[2016-04-03] MEDS ORDERED: Phytonadione 10 MG in D5W 55 ML IVPB SCH (23:00)
[2016-04-04] VITALS (10 sets, daily range): BP systolic 107–168; BP diastolic 57–90
[2016-04-04 00:51] LABS: MEAN CORPUSCULAR HGB CONC 32.7 G/DL (32.0-36.0); MEAN CORPUSCULAR VOLUME 82 FL (80-99); MEAN PLATELET VOLUME 12.2 FL (6.5-10.1); PLATELET COUNT 70 K/UL (150-450); RED BLOOD COUNT 3.62 M/UL (4.20-5.40); RED CELL DISTRIBUTION WIDTH 17.8 % (11.6-14.8); WHITE BLOOD COUNT 4.2 K/UL (4.8-10.8)
[2016-04-04] MEDS ORDERED: Pantoprazole Inj ONE (02:16)
[2016-04-04] MEDS: D5 1/2NS 1,000 ML IV SCH ×2 (02:26→17:14)
[2016-04-04] MEDS: Pantoprazole 80 MG in NS 250 ML IV SCH ×2 (02:53→12:00)
[2016-04-04] MEDS: Octreotide Acetate 500 MCG in Sodium Chloride 499 ML IV SCH ×3 (05:58→21:13)
--- NOTE | 2016-04-04 08:50 | Pre-Procedure Note/Attestation ---
Pre-Procedure Note/Attestation Complete Prior to Procedure Planned Procedure: not applicable Procedure Narrative: egd Indications for Procedure Pre-Operative Diagnosis: gib Attestation I attest that I discussed the nature of the procedure; its benefits; risks and complications; and alternatives (and the risks and benefits of such alternatives ), prior to the procedure, with the patient (or the patient's legal medical sales representative). I attest that, if there was a reasonable possibility of needing a blood transfusion, the patient (or the patient's legal medical sales representative) was given the [facility] standardized written summary, pursuant to the Gustavo Dominique Blood Safety Act ([place] Health and Safety Code # 1645, as amended). I attest that I re-evaluated the patient just prior to the surgery and that there has been no change in the patient's H&P, except as documented below: MICHAELA HICKMAN Apr 04, 2016 08:50
[2016-04-04] MEDS ORDERED: Propofol 10mg/ml 20ml IV ONE (09:30)
[2016-04-04] MEDS ORDERED: NS 110ml ONE (09:30)
[2016-04-04] MEDS ORDERED: Lidocaine 1% MPF 10mg/ml 5ml ONE (09:30)
[2016-04-04] MEDS ORDERED: NS 550ML IV ONE (09:40)
--- NOTE | 2016-04-04 09:53 | Anethesia Preoperative Eval ---
Anesthesia Pre-op PMH/ROS General Date of Evaluation: Apr 04, 2016 Time of Evaluation: 09:50 Anesthesiologist: hieu ASA Score: ASA 3 Mallampati Score Class I : Soft palate, uvula, fauces, pillars visible Class II: Soft palate, uvula, fauces visible Class III: Soft palate, base of uvula visible Class IV: Only hard plate visible Mallampati Classification: Class II Surgeon: faiza Diagnosis: anemia Surgical Procedure: EGD Anesthesia History: none Family History: no anesthesia problems Allergies: Coded Allergies: No Known Allergies (Unverified , 12/05/12) Medications: see eMAR Past Medical History Cardiovascular: Reports: CAD, HTN Gastrointestinal/Genitourinary: Reports: other, Denies: CRI, ESRD, GERD Neurologic/Psychiatric: Reports: dementia HEENT: Denies: TORRES MARTINEZ (L), TORRES MARTINEZ (R), cataract (L), cataract (R), glaucoma, other Hematology/Immune: Reports: anemia Musculoskeletal/Integumentary: Denies: DDD, DJD, OA, RA, edema, other PMH Narrative: (1) Severe anemia (2) Hepatic encephalopathy (3) Schizoaffective disorder (4) HTN (hypertension) (5) Cirrhosis (6) Thrombocytopenia (7) Elevated CEA (8) Coagulopathy Anesthesia Pre-op Phys. Exam Physician Exam Last Vital Signs Date Time Temp Pulse Resp B/P Pulse Ox O2 Delivery O2 Flow Rate FiO2 04/04/16 04:15 97.2 64 20 136/57 98 04/04/16 00:00 Room Air Constitutional: NAD Neurologic: other Cardiovascular: RRR Respiratory: CTA Gastrointestinal: S/NT/ND Airway Exam Mallampati Classification 3 Mallampati Score: Class III MO: limited Neck: thick ROM: limited Dentures: no lower, no upper Anesthesia Pre-op A/P Labs Hematology Test 04/04/16 00:30 White Blood Count 4.2 K/UL (4.8-10.8) L Red Blood Count 3.62 M/UL (4.20-5.40) L Hemoglobin 9.7 G/DL (12.0-16.0) #L Hematocrit 29.8 % (37.0-47.0) #L Mean Corpuscular Volume 82 FL (80-99) Mean Corpuscular Hemoglobin 27.0 PG (27.0-31.0) Mean Corpuscular Hemoglobin Concent 32.7 G/DL (32.0-36.0) Red Cell Distribution Width 17.8 % (11.6-14.8) H Platelet Count 70 K/UL (150-450) L Mean Platelet Volume 12.2 FL (6.5-10.1) H Neutrophils (%) (Auto) % (45.0-75.0) Lymphocytes (%) (Auto) % (20.0-45.0) Monocytes (%) (Auto) % (1.0-10.0) Eosinophils (%) (Auto) % (0.0-3.0) Basophils (%) (Auto) % (0.0-2.0) Risk Assessment & Plan Plan: mac Status Change Before Surgery: No Pre-Antibiotics Drug: none BLAYNE BECKER CRNA Apr 04, 2016 09:53
--- NOTE | 2016-04-04 10:05 | Diagnostic Imaging Report ---
Indication: SOB Technique: One view of the chest Comparison: 07/10/2015 Findings: Heart is enlarged. There is mild generalized interstitial prominence with central bronchial wall thickening. This appears similar to the prior exam, may represent chronic changes or recurrent acute interstitial disease. The aorta is calcified and tortuous. Previously demonstrated PICC is no longer evident Impression: Interstitial disease, reflect chronic interstitial fibrosis or acute interstitial edema, similar to prior exam of 08/06/2015 Cardiomegaly
--- NOTE | 2016-04-04 10:09 | Endoscopy Procedure Note ---
Endoscopy Procedure Note Indication for Procedure: gib Procedures Performed: EGD Operative Findings/Diagnosis: Gastric avm Specimen: yes Pt Tolerated Procedure Well: Yes Estimated Blood Loss: none Anesthesiologist: alverto Anesthesia: MAC Implant(s) used?: No 50 yrs or older w/o bx or poly: Not Applicable 10yrs. F/U not recommended: Not Applicable MICHAELA HICKMAN Apr 04, 2016 10:09
--- NOTE | 2016-04-04 10:44 | 48 Hour Post Anesthesia Eval ---
Post Anesthesia Evaluation Procedure: EGD Date of Evaluation: Apr 04, 2016 Time of Evaluation: 10:43 Blood Pressure Systolic: 154 0: 70 Pulse Rate: 65 Respiratory Rate: 14 O2 Sat by Pulse Oximetry: 99 Airway: patent Nausea: No Vomiting: No Hydration Status: adequate Mental Status/LOC: patient returned to baseline Post-Anesthesia Complications: none Follow-up care needed: N/A BLAYNE BECKER CRNA Apr 04, 2016 10:44
--- NOTE | 2016-04-04 10:45 | Immediate Post-Op Evaluation ---
Immediate Post-Op Evalulation Immediate Post-Op Evalulation Procedure: EGD Date of Evaluation: Apr 04, 2016 Time of Evaluation: 10:05 IV Fluids: 250 Blood Pressure Systolic: 143 Blood Pressure Diastolic: 89 Pulse Rate: 73 Respiratory Rate: 14 O2 Sat by Pulse Oximetry: 98 Nausea: No Vomiting: No Patient Status: awake, patent Hydration Status: adequate Drug: none BLAYNE BECKER CRNA Apr 04, 2016 10:45
--- NOTE | 2016-04-04 10:57 | Diagnostic Imaging Report ---
Indication: Abdominal pain Technique: Continuous helical transaxial imaging of the abdomen and pelvis was obtained from the lung bases to the pubic symphysis during intravenous contrast administration. Coronal 2-D reformats were also obtained. Study obtained in a Siemens sensation [address] Total Dose length Product (DLP): [address] Dose Index Volume (CTDIvol): 8, 89, 22, 22 mGy Comparison: 05/29/15 Findings: The current study is limited because of considerable artifact that obscured is portions of the anatomy especially in the upper part of the abdomen. There is a mild degree of ascites present. There is nodularity of the liver surface with heterogeneous enhancement, splenomegaly and portosystemic varices again demonstrated. Findings consistent with cirrhosis and portal hypertension. Gallstones are again noted. Small cystic foci were demonstrated within the pancreas for example there is a 1 cm focus in the body of the pancreas noted currently. Suggestion of other smaller cystic foci as well in the head of the pancreas. These lesions are not evaluated well on the current study. There are several renal hypodensities demonstrated as well on the left kidney grossly unchanged. There is an umbilical hernia containing small segment of ascites. Anasarca is noted. There is no evidence of bowel obstruction or free air. A Maxwell catheter is present in good position. Arterial vascular consultations are present. Hiatal hernia is noted. There is narrowing of intervertebral discs and accompanying endplate osteophyte formation. Hypertrophied facet joints also demonstrated. There is an old L1 superior endplate fracture, mild in degree unchanged. Impression: Small cystic foci noted within the pancreas, nonspecific. These could be pseudocysts or more likely small IPMNs. They appear grossly stable but not evaluated well on this study due to artifact. Liver cirrhosis with stigmata of portal hypertension including ascites, splenomegaly and portosystemic varices, recanalized umbilical vein/caput medussa. Small bilateral pleural effusions Gallbladder stones Anasarca Atherosclerotic vascular disease Multiple left renal cysts Spondylosis, generalized osteopenia and old L1 compression fracture The CT scanner at [facility] is accredited by the [employer] and the scans are performed using protocols designed to limit radiation exposure to as low as reasonably achievable to attain images of sufficient resolution adequate for diagnostic evaluation.
--- NOTE | 2016-04-04 11:34 | Pulmonology Progress Note ---
Assessment/Plan Problems: (1) Severe anemia (2) Cirrhosis (3) Coagulopathy (4) Elevated CEA (5) Thrombocytopenia (6) Schizoaffective disorder (7) HTN (hypertension) Assessment/Plan h/h better EGD pending med/surg check CEA, Alpha feto protein f/u labs resume feeding after the procedure Subjective ROS Limited/Unobtainable: No Constitutional: Reports: no symptoms HEENT: Repors: no symptoms Respiratory: Reports: no symptoms Cardiovascular: Reports: no symptoms Gastrointestinal/Abdominal: Reports: no symptoms Allergies: Coded Allergies: No Known Allergies (Unverified , 12/05/12) Objective Last 24 Hour Vital Signs Date Time Temp Pulse Resp B/P Pulse Ox O2 Delivery O2 Flow Rate FiO2 04/04/16 10:45 73 14 98 04/04/16 10:44 65 14 99 04/04/16 10:20 69 12 160/83 15 Nasal Cannula 3.0 04/04/16 10:08 69 12 158/85 98 Nasal Cannula 3.0 04/04/16 10:03 70 11 168/90 98 Nasal Cannula 3.0 04/04/16 09:58 97.4 71 16 143/89 98 Simple Mask 6.0 04/04/16 08:00 97.0 75 17 132/59 95 Room Air 04/04/16 04:15 97.2 64 20 136/57 98 04/04/16 04:00 64 04/04/16 00:00 69 04/04/16 00:00 97.9 71 20 135/63 95 Room Air 04/03/16 20:00 71 04/03/16 20:00 97.7 64 18 139/72 96 Room Air 04/03/16 16:10 97.9 67 18 156/72 Room Air 04/03/16 16:00 65 Intake and Output 04/03/16 04/04/16 19:00 07:00 Intake Total 990 ml Output Total 200 ml 750 ml Balance -200 ml 240 ml IV Total 990 ml Output Urine Total 200 ml 750 ml # Bowel Movements 2 2 General Appearance: WD/WN HEENT: normocephalic, atraumatic Respiratory/Chest: chest wall non-tender, lungs clear Breasts: no masses Cardiovascular: normal peripheral pulses Abdomen: normal bowel sounds, soft, non tender Genitourinary: normal external genitalia Neurologic/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: 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 II-XII grossly normal Laboratory Tests 04/04/16 00:00: Stool Occult Blood Negative 04/04/16 00:30: White Blood Count 4.2L, Red Blood Count 3.62L, Hemoglobin 9.7#L, Hematocrit 29.8 #L, Mean Corpuscular Volume 82, Mean Corpuscular Hemoglobin 27.0, Mean Corpuscular Hemoglobin Concent 32.7, Red Cell Distribution Width 17.8H, Platelet Count 70L, Mean Platelet Volume 12.2H, Neutrophils (%) (Auto) , Lymphocytes (%) (Auto) , Monocytes (%) (Auto) , Eosinophils (%) (Auto) , Basophils (%) (Auto) Current Medications Medications (Trade) Dose Ordered Sig/Bing Route PRN Reason Start Time Stop Time Status Last Admin Dose Admin Acetaminophen (Tylenol) 650 mg Q4H PRN ORAL fever 04/02/16 23:15 05/02/16 23:14 Al Hydroxide/Mg Hydroxide (Mylanta II) 30 ml Q6H PRN ORAL dyspepsia 04/02/16 23:15 05/02/16 23:14 Dextrose STAT PRN IV Hypoglycemia 04/02/16 23:15 05/02/16 23:14 Dextrose/Sodium Chloride (D5 0.45% NS) 1,000 ml @ 75 mls/hr [id number] IV 04/03/16 01:00 05/03/16 00:59 04/04/16 02:26 Diphenhydramine HCl (Benadryl) 25 mg Q6H PRN ORAL Itching/Pruritis 04/02/16 23:15 05/02/16 23:14 Morphine Sulfate (Morphine Sulfate) 2 mg Q4H PRN IVP severe Pain (Pain Scale 7-10) 04/02/16 23:15 04/09/16 23:14 Nitroglycerin (Ntg) 0.4 mg Q5M X 3 DOSES PRN SL Prn Chest Pain 04/02/16 23:15 05/02/16 23:14 Octreotide Acetate 500 mcg/ Sodium Chloride 500 ml @ 50 mls/hr Q10H IV 04/03/16 16:00 05/03/16 15:59 04/04/16 05:58 Ondansetron HCl (Zofran) 4 mg Q6H PRN IVP Nausea & Vomiting 04/02/16 23:15 05/02/16 23:14 Pantoprazole 80 mg/Sodium Chloride 250 ml @ 25 mls/hr Q10H IV 04/03/16 16:00 05/03/16 15:59 04/04/16 02:53 Phytonadione/ Dextrose (Vitamin K/D5W) 56 ml @ 100 mls/hr ONCE IVPB 04/03/16 23:00 05/03/16 22:59 04/03/16 23:03 Polyethylene Glycol (Miralax) 17 gm HSPRN PRN ORAL Constipation 04/02/16 23:15 05/02/16 23:14 Risperidone 1 mg 1 mg BEDTIME ORAL 04/03/16 21:00 05/03/16 20:59 04/03/16 21:05 Temazepam (Restoril) 15 mg HSPRN PRN ORAL Insomnia 04/02/16 23:15 04/09/16 23:14 GENESIS ANDRES Apr 04, 2016 11:34
[2016-04-04 11:47] LABS: INR 1.4 (0.9-1.1); PROTHROMBIN TIME 14.8 SEC (9.30-11.50)
[2016-04-04 11:52] LABS: MAGNESIUM 1.8 mg/dL (1.7-2.5); PHOSPHORUS 3.2 mg/dL (2.5-4.8)
[2016-04-04 11:55] LABS: AMYLASE 49 U/L (10-110); LIPASE 40 U/L (< 60)
[2016-04-04 11:56] LABS: ALANINE AMINOTRANSFERASE 14 U/L (3-33); ALBUMIN/GLOBULIN RATIO 0.8 (1.0-2.7); ANION GAP 16 (5-15); ASPARTATE AMINO TRANSFERASE 53 U/L (5-40); CARBON DIOXIDE 15 mEQ/L (20-30); CHLORIDE 113 mEQ/L (98-107); CREATININE 0.8 mg/dL (0.5-0.9); HEMOLYSIS 21; POTASSIUM 4.1 mEQ/L (3.4-4.9); SODIUM 144 mEQ/L (135-145); TOTAL PROTEIN 5.1 g/dL (6.6-8.7)
[2016-04-04 12:16] LABS: AMMONIA 50 umol/L (11-51)
[2016-04-04 12:19] LABS: BILIRUBIN,DIRECT 5.5 mg/dL (0.1-0.3)
[2016-04-04] MEDS ORDERED: Influenza Virus Vaccine 0.5ml IM ONE (17:00)
[2016-04-04] MEDS ORDERED: Octreotide Acetate 500 MCG in Sodium Chloride 499 ML IV SCH (17:15)
[2016-04-04] MEDS ORDERED: Mylanta II UD 30ml ORAL PRN (17:15)
[2016-04-04] MEDS ORDERED: Phytonadione 10 MG in D5W 55 ML IVPB ONE (17:15)
[2016-04-04] MEDS ORDERED: Morphine Sulfate 2mg/ml Inj IVP PRN (17:15)
[2016-04-04] MEDS ORDERED: Pantoprazole 80 MG in NS 250 ML IV SCH (17:15)
[2016-04-04] MEDS ORDERED: Nitroglycerin Subl 0.4mg tab (Bottle Of 25) SL PRN (17:15)
[2016-04-04] MEDS ORDERED: NS 275ml ONE (18:21)
[2016-04-04] MEDS ORDERED: Tubing IV Secondary IV ONE (18:21)
[2016-04-04] MEDS ORDERED: D5 1/2NS 1000ml IV ONE (18:21)
--- NOTE | 2016-04-04 19:38 | Procedure Note ---
DATE OF PROCEDURE: 04/04/2016 SURGEON: Kenneth Churchill M.D. PROCEDURE: Upper endoscopy with biopsy and hemostasis. ANESTHESIA: Per COAL FEEDER OPERATOR, Mitra Hernández. INSTRUMENT: Olympus adult flexible upper endoscope. INDICATION: Upper gastrointestinal bleeding. REASON FOR PROCEDURE: The procedure, risks, benefits, and possible consequences, including hemorrhage, aspiration, perforation and infection, and alternative treatments, were explained to the patient/legal guardian by Dr. Kenneth Churchill and the patient/legal guardian understood and accepted these risks. DESCRIPTION OF PROCEDURE: After informed consent was obtained and the patient was adequately sedated, Olympus upper endoscope was advanced from mouth into the second portion of the duodenum and retroflexion was performed of the stomach. The patient had two large arteriovenous malformations in the stomach, one in the proximal body and one in the distal body, both were cauterized using APC technique. The patient had evidence of GAVE. Also, we did an APC of those GAVE lesions. Random biopsy of the stomach was obtained to rule out H. pylori infection. The patient tolerated the procedure without any complication. SUMMARY OF FINDINGS: 1. Two gastric arteriovenous malformations, status post APC. 2. GAVE, status post APC. 3. Gastritis, status post biopsy. RECOMMENDATIONS: Follow up biopsies and treat accordingly. I want to thank Dr. Segura for this kind referral. Kenneth Churchill M.D. DR: ROGER JOB#: [id number] CC: Yana Segura M.D.
[2016-04-04] MEDS ORDERED: Miralax 17gm pkt ORAL PRN (21:00)
[2016-04-05] VITALS (7 sets, daily range): BP systolic 148–171; BP diastolic 66–90
[2016-04-05] MEDS: D5 1/2NS 1,000 ML IV SCH ×2 (06:35→18:43)
[2016-04-05 07:25] LABS: MEAN CORPUSCULAR HGB CONC 32.6 G/DL (32.0-36.0); MEAN CORPUSCULAR VOLUME 83 FL (80-99); MEAN PLATELET VOLUME 11.9 FL (6.5-10.1); PLATELET COUNT 78 K/UL (150-450); RED BLOOD COUNT 3.09 M/UL (4.20-5.40); RED CELL DISTRIBUTION WIDTH 18.9 % (11.6-14.8); WHITE BLOOD COUNT 3.9 K/UL (4.8-10.8)
[2016-04-05 07:30] LABS: INR 1.4 (0.9-1.1); PROTHROMBIN TIME 14.1 SEC (9.30-11.50)
[2016-04-05 07:43] LABS: ALANINE AMINOTRANSFERASE 15 U/L (3-33); ALBUMIN/GLOBULIN RATIO 0.9 (1.0-2.7); ANION GAP 15 (5-15); ASPARTATE AMINO TRANSFERASE 71 U/L (5-40); CALCIUM 7.9 mg/dL (8.6-10.2); CARBON DIOXIDE 17 mEQ/L (20-30); CHLORIDE 110 mEQ/L (98-107); CREATININE 0.8 mg/dL (0.5-0.9); HEMOLYSIS 178; MAGNESIUM 1.9 mg/dL (1.7-2.5); PHOSPHORUS 2.9 mg/dL (2.5-4.8); POTASSIUM 4.8 mEQ/L (3.4-4.9); SODIUM 142 mEQ/L (135-145); TOTAL PROTEIN 4.9 g/dL (6.6-8.7)
[2016-04-05 08:20] LABS: BILIRUBIN,DIRECT 4.9 mg/dL (0.1-0.3)
[2016-04-05] MEDS: Octreotide Acetate 500 MCG in Sodium Chloride 499 ML IV SCH ×2 (08:26→18:27)
[2016-04-05 09:12] LABS: ANISOCYTOSIS 1+; BAND NEUTROPHILS % (MANUAL) 0 % (0-8); BASOPHILS % (MANUAL) 0 % (0-2); EOSINOPHILS % (MANUAL) 0 % (0-3); LYMPHOCYTES % (MANUAL) 17 % (20-45); NEUTROPHILS % (MANUAL) 78 % (45-75); OVALOCYTES OCCASIONAL; PLATELET ESTIMATE DECREASED; PLATELET MORPHOLOGY NORMAL; POIKILOCYTOSIS OCCASIONAL; TARGET CELLS OCCASIONAL; TOTAL CELLS COUNTED 100
--- NOTE | 2016-04-05 11:56 | Diagnostic Imaging Report ---
Indication: Dyspnea Comparison: 04/02/16 A single view chest radiograph was obtained. Findings: Heart is enlarged. Pulmonary vascular congestion appears relatively stable and is mild. Please correlate clinically. Impression: Possible mild CHF. Please correlate clinically
--- NOTE | 2016-04-05 13:12 | Pulmonology Progress Note ---
Assessment/Plan Problems: (1) Severe anemia (2) Cirrhosis (3) Coagulopathy (4) Elevated CEA (5) Thrombocytopenia (6) Schizoaffective disorder (7) HTN (hypertension) (8) Confusion Assessment/Plan h/h better EGD done med/surg CEA, very high Alpha feto protein pending f/u labs Subjective ROS Limited/Unobtainable: No Interval Events: seems somnolet, eating foood. Allergies: Coded Allergies: No Known Allergies (Unverified , 12/05/12) Objective Last 24 Hour Vital Signs Date Time Temp Pulse Resp B/P Pulse Ox O2 Delivery O2 Flow Rate FiO2 04/05/16 11:56 98.0 70 20 154/76 95 Room Air 04/05/16 08:01 97.8 85 20 164/86 95 Room Air 04/05/16 04:00 97.5 70 20 151/77 98 Room Air 04/05/16 00:00 97.5 82 22 171/80 97 Room Air 04/04/16 19:00 97.3 71 20 155/71 98 Room Air 04/04/16 16:00 97.0 100 20 107/63 96 Room Air Intake and Output 04/04/16 04/05/16 19:00 07:00 Intake Total 375 ml 895 ml Output Total 400 ml 150 ml Balance -25 ml 745 ml Intake Oral 120 ml IV Total 375 ml 775 ml Output Urine Total 400 ml 150 ml # Voids 3 # Bowel Movements 1 1 General Appearance: WD/WN HEENT: normocephalic, atraumatic Respiratory/Chest: chest wall non-tender, lungs clear Cardiovascular: normal peripheral pulses Genitourinary: normal external genitalia Skin: no rash, no lesions Lymphatic: no neck adenopathy Laboratory Tests 04/05/16 06:10: White Blood Count 3.9L, Red Blood Count 3.09L, Hemoglobin 8.3L, Hematocrit 25.6L , Mean Corpuscular Volume 83, Mean Corpuscular Hemoglobin 27.0, Mean Corpuscular Hemoglobin Concent 32.6, Red Cell Distribution Width 18.9H, Platelet Count 78L, Mean Platelet Volume 11.9H, Neutrophils (%) (Auto) , Lymphocytes (%) (Auto) , Monocytes (%) (Auto) , Eosinophils (%) (Auto) , Basophils (%) (Auto) , Differential Total Cells Counted 100, Neutrophils % ( Manual) 78H, Lymphocytes % (Manual) 17L, Monocytes % (Manual) 5, Eosinophils % ( Manual) 0, Basophils % (Manual) 0, Band Neutrophils 0, Platelet Estimate DecreasedL, Platelet Morphology Normal, Poikilocytosis Occasional, Anisocytosis 1+, Target Cells Occasional, Ovalocytes Occasional, Prothrombin Time 14.1H, Prothromb Time International Ratio 1.4H, Activated Partial Thromboplast Time 28 , Sodium Level 142, Potassium Level 4.8, Chloride Level 110H, Carbon Dioxide Level 17L, Anion Gap 15, Blood Urea Nitrogen 9, Creatinine 0.8, Estimat Glomerular Filtration Rate , Glucose Level 157H, Calcium Level 7.9L, Phosphorus Level 2.9, Magnesium Level 1.9, Total Bilirubin 6.6H, Direct Bilirubin 4.9H, Aspartate Amino Transf (AST/SGOT) 71H, Alanine Aminotransferase (ALT/SGPT) 15, Alkaline Phosphatase 59, Total Protein 4.9L, Albumin 2.4L, Globulin 2.5, Albumin /Globulin Ratio 0.9L, Alpha Fetoprotein [Pending], Carcinoembryonic Antigen 17.7H Current Medications Medications (Trade) Dose Ordered Sig/Bing Route PRN Reason Start Time Stop Time Status Last Admin Dose Admin Acetaminophen (Tylenol) 650 mg Q4H PRN ORAL T>100.5 04/04/16 17:30 05/04/16 17:29 Al Hydroxide/Mg Hydroxide (Mylanta II) 30 ml Q6H PRN ORAL dyspepsia 04/04/16 17:15 05/04/16 17:14 Dextrose (Dextrose 50%) STAT PRN IV Hypoglycemia 04/04/16 17:30 05/04/16 17:29 Dextrose/Sodium Chloride (D5 0.45% NS) 1,000 ml @ 75 mls/hr [id number] IV 04/04/16 17:15 05/04/16 17:14 04/04/16 17:14 Diphenhydramine HCl (Benadryl) 25 mg Q6H PRN ORAL Itching/Pruritis 04/04/16 17:15 05/04/16 17:14 04/05/16 00:09 Morphine Sulfate (Morphine Sulfate) 2 mg Q4H PRN IVP Severe Pain (Pain Scale 7-10) 04/04/16 17:15 04/11/16 17:14 Nitroglycerin (Ntg) 0.4 mg Q5M X 3 DOSES PRN SL Prn Chest Pain 04/04/16 17:15 05/04/16 17:14 Octreotide Acetate 500 mcg/ Sodium Chloride 500 ml @ 50 mls/hr Q10H IV 04/03/16 16:00 05/03/16 15:59 04/05/16 08:26 Ondansetron HCl (Zofran) 4 mg Q6H PRN IVP Nausea & Vomiting 04/04/16 17:15 05/04/16 17:14 Pantoprazole (Protonix) 40 mg EVERY 12 HOURS ORAL 04/04/16 22:00 05/04/16 21:59 04/05/16 08:25 Polyethylene Glycol (Miralax) 17 gm HSPRN PRN ORAL Constipation 04/04/16 21:00 05/04/16 20:59 Risperidone (RisperDAL) 1 mg BEDTIME ORAL 04/04/16 21:00 05/04/16 20:59 04/04/16 20:57 Temazepam (Restoril) 15 mg HSPRN PRN ORAL Insomnia 04/04/16 21:00 04/11/16 20:59 GENESIS ANDRES Apr 05, 2016 13:12
[2016-04-05] MEDS ORDERED: D5 1/2NS 1000ml IV ONE (13:28)
--- NOTE | 2016-04-05 18:33 | General Progress Note ---
Assessment/Plan Assessment/Plan GI: Plan Problems: (1) Gastric AVM and GAVE (2) Severe anemia (3) Elevated CEA (4) Schizoaffective disorder (5) Cirrhosis (6) Hepatic encephalopathy (7) Altered mental status (8) End stage liver disease (9) Hypoalbuminemia (10) Anemia (11) Iron deficiency (12) Pancreatic mass Plan ppi gtt monitor H&H, transfuse prn ordered ammonia level ordered AP CT to evaluate hx of pancreatic mass ordered iron panel fu labs Thank you for referring this patient, we will follow. Subjective Allergies: Coded Allergies: No Known Allergies (Unverified , 12/05/12) Subjective No new complaints agitated when interviewed Objective Last 24 Hour Vital Signs Date Time Temp Pulse Resp B/P Pulse Ox O2 Delivery O2 Flow Rate FiO2 04/05/16 15:56 97.8 74 18 148/66 100 Room Air 04/05/16 11:56 98.0 70 20 154/76 95 Room Air 04/05/16 08:01 97.8 85 20 164/86 95 Room Air 04/05/16 04:00 97.5 70 20 151/77 98 Room Air 04/05/16 00:00 97.5 82 22 171/80 97 Room Air 04/04/16 19:00 97.3 71 20 155/71 98 Room Air Intake and Output 04/04/16 04/05/16 19:00 07:00 Intake Total 375 ml 895 ml Output Total 400 ml 150 ml Balance -25 ml 745 ml Intake Oral 120 ml IV Total 375 ml 775 ml Output Urine Total 400 ml 150 ml # Voids 3 # Bowel Movements 1 1 Laboratory Tests 04/05/16 06:10: White Blood Count 3.9L, Red Blood Count 3.09L, Hemoglobin 8.3L, Hematocrit 25.6L , Mean Corpuscular Volume 83, Mean Corpuscular Hemoglobin 27.0, Mean Corpuscular Hemoglobin Concent 32.6, Red Cell Distribution Width 18.9H, Platelet Count 78L, Mean Platelet Volume 11.9H, Neutrophils (%) (Auto) , Lymphocytes (%) (Auto) , Monocytes (%) (Auto) , Eosinophils (%) (Auto) , Basophils (%) (Auto) , Differential Total Cells Counted 100, Neutrophils % ( Manual) 78H, Lymphocytes % (Manual) 17L, Monocytes % (Manual) 5, Eosinophils % ( Manual) 0, Basophils % (Manual) 0, Band Neutrophils 0, Platelet Estimate DecreasedL, Platelet Morphology Normal, Poikilocytosis Occasional, Anisocytosis 1+, Target Cells Occasional, Ovalocytes Occasional, Prothrombin Time 14.1H, Prothromb Time International Ratio 1.4H, Activated Partial Thromboplast Time 28 , Sodium Level 142, Potassium Level 4.8, Chloride Level 110H, Carbon Dioxide Level 17L, Anion Gap 15, Blood Urea Nitrogen 9, Creatinine 0.8, Estimat Glomerular Filtration Rate , Glucose Level 157H, Calcium Level 7.9L, Phosphorus Level 2.9, Magnesium Level 1.9, Total Bilirubin 6.6H, Direct Bilirubin 4.9H, Aspartate Amino Transf (AST/SGOT) 71H, Alanine Aminotransferase (ALT/SGPT) 15, Alkaline Phosphatase 59, Total Protein 4.9L, Albumin 2.4L, Globulin 2.5, Albumin /Globulin Ratio 0.9L, Alpha Fetoprotein [Pending], Carcinoembryonic Antigen 17.7H Height (Feet): 5 Height (Inches): 3.00 Weight (Pounds): 160 Objective WDWN NCAT Supple CTA RRR Soft NT ND no edema non focal PRABHA LIZAMA Apr 05, 2016 18:33
[2016-04-06 04:00] VITALS: BP 156/89
[2016-04-06 07:49] VITALS: BP 148/69
[2016-04-06 07:51] LABS: MEAN CORPUSCULAR HEMOGLOBIN 27.2 PG (27.0-31.0); MEAN CORPUSCULAR HGB CONC 33.1 G/DL (32.0-36.0); MEAN CORPUSCULAR VOLUME 82 FL (80-99); MEAN PLATELET VOLUME 11.6 FL (6.5-10.1); PLATELET COUNT 72 K/UL (150-450); RED BLOOD COUNT 3.36 M/UL (4.20-5.40); RED CELL DISTRIBUTION WIDTH 19.3 % (11.6-14.8); WHITE BLOOD COUNT 3.5 K/UL (4.8-10.8)
[2016-04-06 08:07] LABS: ALANINE AMINOTRANSFERASE 15 U/L (3-33); ALBUMIN/GLOBULIN RATIO 0.9 (1.0-2.7); ANION GAP 16 (5-15); ASPARTATE AMINO TRANSFERASE 52 U/L (5-40); CALCIUM 8.1 mg/dL (8.6-10.2); CARBON DIOXIDE 19 mEQ/L (20-30); CHLORIDE 108 mEQ/L (98-107); CREATININE 0.7 mg/dL (0.5-0.9); HEMOLYSIS 2; MAGNESIUM 1.7 mg/dL (1.7-2.5); PHOSPHORUS 1.5 mg/dL (2.5-4.8); POTASSIUM 3.3 mEQ/L (3.4-4.9); SODIUM 143 mEQ/L (135-145); TOTAL PROTEIN 5.3 g/dL (6.6-8.7)
[2016-04-06 08:14] LABS: INR 1.3 (0.9-1.1); PROTHROMBIN TIME 13.8 SEC (9.30-11.50)
[2016-04-06 08:29] LABS: BILIRUBIN,DIRECT 4.9 mg/dL (0.1-0.3)
[2016-04-06] MEDS: D5 1/2NS 1,000 ML IV SCH ×2 (08:39→22:35)
[2016-04-06 09:59] LABS: ANISOCYTOSIS 1+; LYMPHOCYTES % (MANUAL) 23 % (20-45); NEUTROPHILS % (MANUAL) 69 % (45-75); TOTAL CELLS COUNTED 100
[2016-04-06 10:00] LABS: BAND NEUTROPHILS % (MANUAL) 0 % (0-8); BASOPHILS % (MANUAL) 0 % (0-2); EOSINOPHILS % (MANUAL) 0 % (0-3); HYPOCHROMASIA OCCASIONAL; PLATELET ESTIMATE DECREASED; PLATELET MORPHOLOGY NORMAL
[2016-04-06 12:00] VITALS: BP 166/91
--- NOTE | 2016-04-06 13:34 | Pulmonology Progress Note ---
Assessment/Plan Problems: (1) Severe anemia (2) Cirrhosis (3) Coagulopathy (4) Elevated CEA (5) Thrombocytopenia (6) Schizoaffective disorder (7) HTN (hypertension) (8) Confusion Assessment/Plan h/h better EGD done med/surg CEA, very high Alpha feto protein pending pt/ot dc planning f/u labs Subjective ROS Limited/Unobtainable: No Constitutional: Reports: no symptoms HEENT: Repors: no symptoms Respiratory: Reports: no symptoms Allergies: Coded Allergies: No Known Allergies (Unverified , 12/05/12) Objective Last 24 Hour Vital Signs Date Time Temp Pulse Resp B/P Pulse Ox O2 Delivery O2 Flow Rate FiO2 04/06/16 12:00 97.7 89 15 166/91 99 Room Air 04/06/16 07:49 97.3 85 16 148/69 97 Nasal Cannula 04/06/16 04:00 98.2 91 20 156/89 96 Room Air 04/05/16 23:38 97.6 85 20 162/84 97 Room Air 04/05/16 20:09 97.5 75 18 149/90 100 Room Air 04/05/16 15:56 97.8 74 18 148/66 100 Room Air Intake and Output 04/05/16 04/06/16 19:00 07:00 Intake Total 785 ml 1150 ml Output Total 400 ml 350 ml Balance 385 ml 800 ml Intake Oral 360 ml 250 ml IV Total 425 ml 900 ml Output Urine Total 400 ml 350 ml # Voids 1 # Bowel Movements 2 General Appearance: WD/WN HEENT: normocephalic, atraumatic Respiratory/Chest: chest wall non-tender, lungs clear Cardiovascular: normal peripheral pulses, normal rate Abdomen: normal bowel sounds, soft, non tender Extremities: no cyanosis, no clubbing Laboratory Tests 04/06/16 07:20: White Blood Count 3.5L, Red Blood Count 3.36L, Hemoglobin 9.1L, Hematocrit 27.6L , Mean Corpuscular Volume 82, Mean Corpuscular Hemoglobin 27.2, Mean Corpuscular Hemoglobin Concent 33.1, Red Cell Distribution Width 19.3H, Platelet Count 72L, Mean Platelet Volume 11.6H, Neutrophils (%) (Auto) , Lymphocytes (%) (Auto) , Monocytes (%) (Auto) , Eosinophils (%) (Auto) , Basophils (%) (Auto) , Differential Total Cells Counted 100, Neutrophils % ( Manual) 69, Lymphocytes % (Manual) 23, Monocytes % (Manual) 8, Eosinophils % ( Manual) 0, Basophils % (Manual) 0, Band Neutrophils 0, Platelet Estimate DecreasedL, Platelet Morphology Normal, Hypochromasia Occasional, Anisocytosis 1 +, Prothrombin Time 13.8H, Prothromb Time International Ratio 1.3H, Activated Partial Thromboplast Time 30, Sodium Level 143, Potassium Level 3.3L, Chloride Level 108H, Carbon Dioxide Level 19L, Anion Gap 16H, Blood Urea Nitrogen 7, Creatinine 0.7, Estimat Glomerular Filtration Rate , Glucose Level 145H, Calcium Level 8.1L, Phosphorus Level 1.5L, Magnesium Level 1.7, Total Bilirubin 7.4H, Direct Bilirubin 4.9H, Aspartate Amino Transf (AST/SGOT) 52H, Alanine Aminotransferase (ALT/SGPT) 15, Alkaline Phosphatase 71, Total Protein 5.3L, Albumin 2.6L, Globulin 2.7, Albumin/Globulin Ratio 0.9L Current Medications Medications (Trade) Dose Ordered Sig/Bing Route PRN Reason Start Time Stop Time Status Last Admin Dose Admin Acetaminophen (Tylenol) 650 mg Q4H PRN ORAL T>100.5 04/04/16 17:30 05/04/16 17:29 Al Hydroxide/Mg Hydroxide (Mylanta II) 30 ml Q6H PRN ORAL dyspepsia 04/04/16 17:15 05/04/16 17:14 Dextrose (Dextrose 50%) STAT PRN IV Hypoglycemia 04/04/16 17:30 05/04/16 17:29 Dextrose/Sodium Chloride (D5 0.45% NS) 1,000 ml @ 75 mls/hr [id number] IV 04/04/16 17:15 05/04/16 17:14 04/06/16 08:39 Diphenhydramine HCl (Benadryl) 25 mg Q6H PRN ORAL Itching/Pruritis 04/04/16 17:15 05/04/16 17:14 04/05/16 00:09 Morphine Sulfate (Morphine Sulfate) 2 mg Q4H PRN IVP Severe Pain (Pain Scale 7-10) 04/04/16 17:15 04/11/16 17:14 Nitroglycerin (Ntg) 0.4 mg Q5M X 3 DOSES PRN SL Prn Chest Pain 04/04/16 17:15 05/04/16 17:14 Ondansetron HCl (Zofran) 4 mg Q6H PRN IVP Nausea & Vomiting 04/04/16 17:15 05/04/16 17:14 Pantoprazole (Protonix) 40 mg EVERY 12 HOURS ORAL 04/04/16 22:00 05/04/16 21:59 04/06/16 08:39 Polyethylene Glycol (Miralax) 17 gm HSPRN PRN ORAL Constipation 04/04/16 21:00 05/04/16 20:59 Risperidone (RisperDAL) 1 mg BEDTIME ORAL 04/04/16 21:00 05/04/16 20:59 04/05/16 20:12 Temazepam (Restoril) 15 mg HSPRN PRN ORAL Insomnia 04/04/16 21:00 04/11/16 20:59 GENESIS ANDRES Apr 06, 2016 13:33
[2016-04-06 16:45] VITALS: BP 161/89
[2016-04-06 20:23] VITALS: BP 147/90
[2016-04-07] VITALS: BP 148/83
[2016-04-07] MEDS: D5 1/2NS 1,000 ML IV SCH ×2 (00:46→16:25)
[2016-04-07 04:00] VITALS: BP 136/89
[2016-04-07 08:00] VITALS: BP 145/86
--- NOTE | 2016-04-07 10:47 | GI Progress Note ---
Assessment/Plan Problems: (1) Pancreatic mass ICD Codes: K86.9 - Disease of pancreas, unspecified SNOMED: 433436728 (2) Altered mental status (3) End stage liver disease ICD Codes: K72.90 - Hepatic failure, unspecified without coma SNOMED: 851958924 (4) Hypoalbuminemia ICD Codes: E88.09 - Other disorders of plasma-protein metabolism, not elsewhere classified SNOMED: 626750468 (5) Iron deficiency ICD Codes: E61.1 - Iron deficiency SNOMED: 35976676 (6) Anemia ICD Codes: D64.9 - Anemia SNOMED: 417754147 (7) Severe anemia ICD Codes: D64.9 - Anemia, unspecified SNOMED: 040254275 (8) Elevated CEA ICD Codes: R97.0 - Elevated carcinoembryonic antigen [CEA] SNOMED: 84250631, 993301537 (9) Cirrhosis ICD Codes: K74.60 - Unspecified cirrhosis of liver SNOMED: 32479935 Status: unchanged Status Narrative Discussed with Dr. Churchill. Assessment/Plan elevated CEA >> 17.[address] to evaluate hx of pancreatic mass >> Small cystic foci noted within the pancreas, nonspecific. These could be pseudocysts or more likely small IPMNs. They appear grossly stable but not evaluated well on this study due to artifact. AFP pending OB stool negative monitor H&H, transfuse prn ordered iron panel ppi BID fu labs The patient was seen and examined at bedside and all new and available data was reviewed in the patients chart. I agree with the above findings, impression and plan. (Patient seen earlier today. Signature stamp does not reflect patient encounter time.). -Kenneth Churchill MD Subjective Subjective limited Objective Last 24 Hour Vital Signs Date Time Temp Pulse Resp B/P Pulse Ox O2 Delivery O2 Flow Rate FiO2 04/07/16 08:00 97.5 87 19 145/86 96 Room Air 04/07/16 04:00 98.2 84 20 136/89 99 Room Air 04/07/16 00:00 98.4 89 18 148/83 97 Room Air 04/06/16 20:23 97.3 105 18 147/90 99 Room Air 04/06/16 16:45 97.7 84 14 161/89 98 Room Air 04/06/16 12:00 97.7 89 15 166/91 99 Room Air Intake and Output 04/06/16 04/07/16 19:00 07:00 Intake Total 300 ml 850 ml Output Total 200 ml 300 ml Balance 100 ml 550 ml Intake Oral 300 ml 100 ml IV Total 750 ml Output Urine Total 200 ml 300 ml Height (Feet): 5 Height (Inches): 3.00 Weight (Pounds): 160 General Appearance: no apparent distress, alert Cardiovascular: normal rate Respiratory/Chest: normal breath sounds, no respiratory distress Abdominal Exam: normal bowel sounds, non tender, soft Objective DATE OF PROCEDURE: 04/04/2016 SURGEON: Kenneth Churchill M.D. INDICATION: Upper gastrointestinal bleeding. REASON FOR PROCEDURE: The procedure, risks, benefits, and possible consequences, including hemorrhage, aspiration, perforation and infection, and alternative treatments, were explained to the patient/legal guardian by Dr. Kenneth Churchill and the patient/legal guardian understood and accepted these risks. SUMMARY OF FINDINGS: 1. Two gastric arteriovenous malformations, status post APC. 2. GAVE, status post APC. 3. Gastritis, status post biopsy. RECOMMENDATIONS: Follow up biopsies and treat accordingly. Procedure: US ABD Complete Indication: Abdominal pain, abnormal liver function tests, abnormal renal function tests Impression: Cholelithiasis. Positive sonographic Gonzalez's sign raises concern for acute cholecystitis. Gallbladder wall thickening may also indicate acute cholecystitis, but could also be secondary to hepatic cirrhosis. Consider nuclear medicine hepatobiliary scan for for evaluation Negative for dilated ducts Markedly abnormal liver. There are findings consistent with cirrhosis, also previously described. However, the markedly patchy and heterogeneous echogenicity evident currently and not previously raises concern for diffuse infiltration with tumor. Consider contrast CT for further evaluation New finding of portal vein thrombosis, not evident on June 2015 CT. This could indicate portal vein thrombosis, or portal vein invasion by tumor. Again, contrast CT may be useful as clinically indicated Maris Ramirez N.P. Apr 07, 2016 10:47 KENNETH CHURCHILL Apr 09, 2016 10:21
[2016-04-07 12:04] VITALS: BP 152/88
[2016-04-07 16:00] VITALS: BP 155/90
--- NOTE | 2016-04-07 19:13 | Cardiology Report ---
APPROVED REPORT EKG Measurement Heart [id number] SD [id number] Normal sinus rhythm with sinus arrhythmia Cannot rule out Anterior infarct, age undetermined Abnormal ECG
[2016-04-07 20:00] VITALS: BP 142/84
--- NOTE | 2016-04-07 22:59 | Pulmonology Progress Note ---
Assessment/Plan Problems: (1) Severe anemia (2) Cirrhosis (3) Coagulopathy (4) Elevated CEA (5) Thrombocytopenia (6) Schizoaffective disorder (7) HTN (hypertension) (8) Confusion Assessment/Plan h/h better EGD done med/surg CEA, very high Alpha feto protein pending pt/ot dc planning f/u labs d/w daughter about option of Hospice, She was shocked to hear about poor prognosis, Still can't understand the gravity of her situation. She agreed with hospice first then she changed her mind. At this point I don't know what she wants or hopes for. Subjective ROS Limited/Unobtainable: No Constitutional: Reports: no symptoms HEENT: Repors: no symptoms Respiratory: Reports: no symptoms Allergies: Coded Allergies: No Known Allergies (Unverified , 12/05/12) Objective Last 24 Hour Vital Signs Date Time Temp Pulse Resp B/P Pulse Ox O2 Delivery O2 Flow Rate FiO2 04/07/16 20:00 97.7 88 18 142/84 98 Room Air 04/07/16 18:37 97.9 04/07/16 16:00 97.9 88 18 155/90 97 Room Air 04/07/16 12:04 97.2 94 21 152/88 97 Room Air 04/07/16 08:00 97.5 87 19 145/86 96 Room Air 04/07/16 04:00 98.2 84 20 136/89 99 Room Air 04/07/16 00:00 98.4 89 18 148/83 97 Room Air Intake and Output 04/06/16 04/07/16 19:00 07:00 Intake Total 300 ml 850 ml Output Total 200 ml 300 ml Balance 100 ml 550 ml Intake Oral 300 ml 100 ml IV Total 750 ml Output Urine Total 200 ml 300 ml Objective open eyes, doenst follow commands General Appearance: WD/WN HEENT: normocephalic Respiratory/Chest: chest wall non-tender Current Medications Medications (Trade) Dose Ordered Sig/Bing Route PRN Reason Start Time Stop Time Status Last Admin Dose Admin Acetaminophen (Tylenol) 650 mg Q4H PRN ORAL T>100.5 04/04/16 17:30 05/04/16 17:29 04/07/16 17:38 Al Hydroxide/Mg Hydroxide (Mylanta II) 30 ml Q6H PRN ORAL dyspepsia 04/04/16 17:15 05/04/16 17:14 Dextrose (Dextrose 50%) STAT PRN IV Hypoglycemia 04/04/16 17:30 05/04/16 17:29 Dextrose/Sodium Chloride (D5 0.45% NS) 1,000 ml @ 75 mls/hr [id number] IV 04/04/16 17:15 05/04/16 17:14 04/07/16 16:25 Diphenhydramine HCl (Benadryl) 25 mg Q6H PRN ORAL Itching/Pruritis 04/04/16 17:15 05/04/16 17:14 04/05/16 00:09 Morphine Sulfate (Morphine Sulfate) 2 mg Q4H PRN IVP Severe Pain (Pain Scale 7-10) 04/04/16 17:15 04/11/16 17:14 Nitroglycerin (Ntg) 0.4 mg Q5M X 3 DOSES PRN SL Prn Chest Pain 04/04/16 17:15 05/04/16 17:14 Ondansetron HCl (Zofran) 4 mg Q6H PRN IVP Nausea & Vomiting 04/04/16 17:15 05/04/16 17:14 Pantoprazole (Protonix) 40 mg EVERY 12 HOURS ORAL 04/04/16 22:00 05/04/16 21:59 04/07/16 21:24 Polyethylene Glycol (Miralax) 17 gm HSPRN PRN ORAL Constipation 04/04/16 21:00 05/04/16 20:59 Risperidone (RisperDAL) 1 mg BEDTIME ORAL 04/04/16 21:00 05/04/16 20:59 04/07/16 21:24 Temazepam (Restoril) 15 mg HSPRN PRN ORAL Insomnia 04/04/16 21:00 04/11/16 20:59 GENESIS ANDRES Apr 07, 2016 22:59
[2016-04-08] VITALS: BP 130/67
--- NOTE | 2016-04-08 01:27 | Consultation ---
DATE OF CONSULTATION: 04/07/2016 ATTENDING PHYSICIAN: . REFERRING PHYSICIAN: Yana Segura MD. CHIEF COMPLAINT: evaluate this. HISTORY OF PRESENT ILLNESS: She is a 75-year-old female regarding history of gross hematuria. Briefly, the patient has a history of coronary artery disease and cirrhosis who is brought into the hospital by paramedics with a complaint of general fatigue and altered mental status. She was found to have a hemoglobin of 3. She was admitted to the hospital for further management of the same. During the course of her hospitalization, her urine went from clear to somewhat bloody as such I was asked to evaluate the patient. PAST MEDICAL HISTORY: 1. Anemia. 2. Osteoporosis. 3. 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 4. Schizoaffective disorder. 5. Hypertension. 6. Thrombocytopenia. 7. Elevated CEA. 8. Coagulopathy. PAST SURGICAL HISTORY: Esophagogastroduodenoscopy. MEDICATIONS: Please see the chart for administration details. ALLERGIES: No known drug allergies. SOCIAL HISTORY: Noncontributory. FAMILY HISTORY: Noncontributory. REVIEW OF SYSTEMS: A 12-system review of systems essentially unremarkable outside of what is described above. PHYSICAL EXAMINATION: GENERAL: The patient is an elderly female who is awake, alert, and oriented x2. No obvious distress. HEENT: NC/AT. EOMI. Jaundice. Sclerae noted. NECK: Supple. Full range of motion. Oropharynx clear. CHEST: Within normal limits. ABDOMEN: Soft, flat, and nontender. Nondistended. EXTREMITIES: Normal perfused. No cyanosis, clubbing, or edema. BACK: No CVA tenderness to percussion. NEUROLOGIC: Exam is grossly nonfocal. GENITOURINARY: Exam reveals a Maxwell catheter in place with atrophic genitalia. Urine is currently yellowish pink in color. LABORATORY DATA: White blood cell count 3.5, hematocrit 27.6 up from 11 on admission, platelets 72, PT 13.8, INR 1.3, and PTT 30. Urinalysis - specific gravity 1.015, pH 6.0, dip test over 2+ protein, 2+ ketones, and 1+ leukocyte esterase. Negative for occult blood. Microanalysis with 0 to 2, white and red blood cells per high-power field and few bacteria seen. Sodium 143, potassium 3.3, chloride 108, bicarbonate 19, BUN 7, creatinine 0.7, and glucose 445. Calcium 10.1, phosphorus 1.5, and magnesium 1.7. Bilirubin 7.4, direct 4.9, AST 52, ALT 15, and alkaline phosphatase 71. CEA 17.7. DIAGNOSTIC IMAGING: CT scan of the abdomen and pelvis with intravenous contrast reveals cystic foci in the pancreas, nonspecific liver cirrhosis with stigmata of portal hypertension including ascites, splenomegaly, and portosystemic varices. Small bilateral pleural effusion, Gallbladder stones, anasarca, atherosclerotic vascular disease, multiple left renal cysts, and spondylosis. There is no evidence of renal stones or renal masses noted. ASSESSMENT/PLAN: In summary, the patient is a 75-year-old female with a history of cirrhosis, clotting disorders, and anemia who presented to the hospital with severe anemia. She was found to have urine, which turns more blood during her hospitalization here. Physical exam reveals yellowish pink urine output with no significant hematuria. Laboratory data is essentially unremarkable from a genitourinary standpoint. It is notable for elevated LFTs in the setting of cirrhosis. Diagnostic imaging feels reveal any source of gastrointestinal bleeding. I have reviewed the patient's hematuria is likely secondary to a combination of her clotting disorders from cirrhosis and coagulopathy. Additionally having a catheter rubbing around her bladder may exacerbate the situation somewhat. Given that hematuria is very mild, I do not so there is a need for emergent intervention with cystoscopy to further evaluate the same. If the patient is eventually stabilized and improved, she can follow up in the office for cystoscopy to complete her workup. Thank you for allowing me to participate in the care of this nice lady. She does not need continuous bladder irrigation or other measures at this time. Thank you for allowing me to participate in the care of this nice lady. Please note that a complicated course with further have regarding her care. I will be happy to see her with you as needed. Elmo Hanley M.D. DR: IAIN JOB#: [id number] CC:
[2016-04-08 04:00] VITALS: BP 139/72
[2016-04-08 07:14] LABS: MEAN CORPUSCULAR HEMOGLOBIN 27.7 PG (27.0-31.0); MEAN CORPUSCULAR HGB CONC 34.1 G/DL (32.0-36.0); MEAN CORPUSCULAR VOLUME 81 FL (80-99); MEAN PLATELET VOLUME 9.5 FL (6.5-10.1); PLATELET COUNT 53 K/UL (150-450); RED BLOOD COUNT 3.25 M/UL (4.20-5.40); WHITE BLOOD COUNT 3.5 K/UL (4.8-10.8)
[2016-04-08 07:20] LABS: INR 1.5 (0.9-1.1); PROTHROMBIN TIME 15.7 SEC (9.30-11.50)
[2016-04-08 07:44] LABS: MAGNESIUM 1.4 mg/dL (1.7-2.5); PHOSPHORUS 1.2 mg/dL (2.5-4.8)
[2016-04-08 07:50] LABS: ALANINE AMINOTRANSFERASE 14 U/L (3-33); ALBUMIN/GLOBULIN RATIO 0.8 (1.0-2.7); ANION GAP 11 (5-15); ASPARTATE AMINO TRANSFERASE 57 U/L (5-40); CALCIUM 7.8 mg/dL (8.6-10.2); CARBON DIOXIDE 19 mEQ/L (20-30); CHLORIDE 112 mEQ/L (98-107); CREATININE 0.6 mg/dL (0.5-0.9); POTASSIUM 3.2 mEQ/L (3.4-4.9); SODIUM 142 mEQ/L (135-145); TOTAL PROTEIN 4.7 g/dL (6.6-8.7)
[2016-04-08 08:00] VITALS: BP 145/79
[2016-04-08 08:26] LABS: BAND NEUTROPHILS % (MANUAL) 0 % (0-8); BASOPHILS % (MANUAL) 0 % (0-2); EOSINOPHILS % (MANUAL) 2 % (0-3); LYMPHOCYTES % (MANUAL) 17 % (20-45); NEUTROPHILS % (MANUAL) 71 % (45-75); PLATELET ESTIMATE DECREASED; PLATELET MORPHOLOGY NORMAL; TOTAL CELLS COUNTED 100
[2016-04-08 08:27] LABS: ANISOCYTOSIS 2+; POLYCHROMASIA 1+
[2016-04-08] MEDS: D5 1/2NS 1,000 ML IV SCH (08:27)
[2016-04-08 08:29] LABS: HYPOCHROMASIA 1+
--- NOTE | 2016-04-08 11:18 | GI Progress Note ---
Assessment/Plan Problems: (1) Pancreatic mass ICD Codes: K86.9 - Disease of pancreas, unspecified SNOMED: 583580107 (2) Altered mental status (3) End stage liver disease ICD Codes: K72.90 - Hepatic failure, unspecified without coma SNOMED: 125032722 (4) Hypoalbuminemia ICD Codes: E88.09 - Other disorders of plasma-protein metabolism, not elsewhere classified SNOMED: 228440870 (5) Iron deficiency ICD Codes: E61.1 - Iron deficiency SNOMED: 44609578 (6) Anemia ICD Codes: D64.9 - Anemia SNOMED: 681544981 (7) Severe anemia ICD Codes: D64.9 - Anemia, unspecified SNOMED: 602733205 (8) Elevated CEA ICD Codes: R97.0 - Elevated carcinoembryonic antigen [CEA] SNOMED: 07845858, 632427819 (9) Cirrhosis ICD Codes: K74.60 - Unspecified cirrhosis of liver SNOMED: 59808155 Status: stable Status Narrative Discussed with Dr. Churchill. Assessment/Plan elevated CEA >> 17.[address] to evaluate hx of pancreatic mass >> Small cystic foci noted within the pancreas, nonspecific. These could be pseudocysts or more likely small IPMNs. They appear grossly stable but not evaluated well on this study due to artifact. AFP pending OB stool negative Liver cirrhosis >> ammonia levels have been normal H. Pylori >> negative ok for DC per GI standpoint monitor H&H, transfuse prn fu iron panel fu ammonia level ppi BID fu labs Subjective Gastrointestinal/Abdominal: Reports: no symptoms Objective Last 24 Hour Vital Signs Date Time Temp Pulse Resp B/P Pulse Ox O2 Delivery O2 Flow Rate FiO2 04/08/16 08:00 98.8 80 20 145/79 98 Room Air 04/08/16 04:00 97.5 80 18 139/72 97 Room Air 04/08/16 00:00 97.8 83 19 130/67 99 Room Air 04/07/16 20:00 97.7 88 18 142/84 98 Room Air 04/07/16 18:37 97.9 04/07/16 16:00 97.9 88 18 155/90 97 Room Air 04/07/16 12:04 97.2 94 21 152/88 97 Room Air Intake and Output 04/07/16 04/08/16 19:00 07:00 Intake Total 870 ml 955 ml Output Total 225 ml 550 ml Balance 645 ml 405 ml Intake Oral 120 ml 580 ml IV Total 750 ml 375 ml Output Urine Total 225 ml 550 ml Laboratory Tests Test 04/08/16 06:20 04/08/16 10:15 White Blood Count 3.5 K/UL (4.8-10.8) L Red Blood Count 3.25 M/UL (4.20-5.40) L Hemoglobin 9.0 G/DL (12.0-16.0) L Hematocrit 26.4 % (37.0-47.0) L Mean Corpuscular Volume 81 FL (80-99) Mean Corpuscular Hemoglobin 27.7 PG (27.0-31.0) Mean Corpuscular Hemoglobin Concent 34.1 G/DL (32.0-36.0) Red Cell Distribution Width 20.0 % (11.6-14.8) H Platelet Count 53 K/UL (150-450) L Mean Platelet Volume 9.5 FL (6.5-10.1) Neutrophils (%) (Auto) % (45.0-75.0) Lymphocytes (%) (Auto) % (20.0-45.0) Monocytes (%) (Auto) % (1.0-10.0) Eosinophils (%) (Auto) % (0.0-3.0) Basophils (%) (Auto) % (0.0-2.0) Differential Total Cells Counted 100 Neutrophils % (Manual) 71 % (45-75) Lymphocytes % (Manual) 17 % (20-45) L Monocytes % (Manual) 10 % (1-10) Eosinophils % (Manual) 2 % (0-3) Basophils % (Manual) 0 % (0-2) Band Neutrophils 0 % (0-8) Platelet Estimate Decreased L Platelet Morphology Normal Polychromasia 1+ Hypochromasia 1+ Anisocytosis 2+ Prothrombin Time 15.7 SEC (9.30-11.50) H Prothromb Time International Ratio 1.5 (0.9-1.1) H Activated Partial Thromboplast Time 34 SEC (23-33) H Sodium Level 142 mEQ/L (135-145) Potassium Level 3.2 mEQ/L (3.4-4.9) L Chloride Level 112 mEQ/L (98-107) H Carbon Dioxide Level 19 mEQ/L (20-30) L Anion Gap 11 (5-15) Blood Urea Nitrogen 3 mg/dL (7-23) L Creatinine 0.6 mg/dL (0.5-0.9) Estimat Glomerular Filtration Rate mL/min (>60) Glucose Level 117 mg/dL (74-106) H Calcium Level 7.8 mg/dL (8.6-10.2) L Phosphorus Level 1.2 mg/dL (2.5-4.8) L Magnesium Level 1.4 mg/dL (1.7-2.5) L Iron Level Pending Unsaturated Iron Binding Pending Total Bilirubin 7.3 mg/dL (0.0-1.2) H Direct Bilirubin Pending Aspartate Amino Transf (AST/SGOT) 57 U/L (5-40) H Alanine Aminotransferase (ALT/SGPT) 14 U/L (3-33) Alkaline Phosphatase 59 U/L (35-104) Total Protein 4.7 g/dL (6.6-8.7) L Albumin 2.1 g/dL (3.5-5.2) L Globulin 2.6 g/dL Albumin/Globulin Ratio 0.8 (1.0-2.7) L Ammonia Pending Height (Feet): 5 Height (Inches): 3.00 Weight (Pounds): 160 General Appearance: alert, obese, other - jaundice eyes Cardiovascular: normal rate Respiratory/Chest: no respiratory distress Abdominal Exam: normal bowel sounds, non tender, soft, ascites Objective DATE OF PROCEDURE: 04/04/2016 SURGEON: Kenneth Churchill M.D. INDICATION: Upper gastrointestinal bleeding. REASON FOR PROCEDURE: The procedure, risks, benefits, and possible consequences, including hemorrhage, aspiration, perforation and infection, and alternative treatments, were explained to the patient/legal guardian by Dr. Kenneth Churchill and the patient/legal guardian understood and accepted these risks. SUMMARY OF FINDINGS: 1. Two gastric arteriovenous malformations, status post APC. 2. GAVE, status post APC. 3. Gastritis, status post biopsy. RECOMMENDATIONS: Follow up biopsies and treat accordingly. Procedure: US ABD Complete Indication: Abdominal pain, abnormal liver function tests, abnormal renal function tests Impression: Cholelithiasis. Positive sonographic Gonzalez's sign raises concern for acute cholecystitis. Gallbladder wall thickening may also indicate acute cholecystitis, but could also be secondary to hepatic cirrhosis. Consider nuclear medicine hepatobiliary scan for for evaluation Negative for dilated ducts Markedly abnormal liver. There are findings consistent with cirrhosis, also previously described. However, the markedly patchy and heterogeneous echogenicity evident currently and not previously raises concern for diffuse infiltration with tumor. Consider contrast CT for further evaluation New finding of portal vein thrombosis, not evident on June 2015 CT. This could indicate portal vein thrombosis, or portal vein invasion by tumor. Again, contrast CT may be useful as clinically indicated Maris Ramirez N.P. Apr 08, 2016 11:18
[2016-04-08 12:00] VITALS: BP 132/70
[2016-04-08] MEDS ORDERED: Pneumococcal Vaccine 25mcg/0.5ml IM ONE (12:00)
[2016-04-08] MEDS ORDERED: Sodium Phosphate 30 MM in NS 275 ML IVPB ONE (13:00)
--- NOTE | 2016-04-08 14:21 | Diagnostic Imaging Report ---
APPROVED REPORT CPT Code: 88975 Present Symptoms Comments: R/O DVT BILATERAL: Imaging reveals a patent deep venous system bilaterally. There is no evidence of thrombus within the femoral, popliteal or tibial segments. The greater saphenous veins are also within normal limits. Doppler indicates normal spontaneous flow within these segments.
[2016-04-08] MEDS ORDERED: Tubing IV Secondary IV ONE (15:59)
[2016-04-08] MEDS ORDERED: D5 1/2NS 1000ml IV ONE ×3 (15:59)
[2016-04-08] MEDS ORDERED: Flovent 110mcg Inhaler - 12gm INH SCH (18:00)
[2016-04-09 14:40] LABS: HEMOLYSIS 11; IRON 32 ug/dL (37-145); TOTAL IRON BINDING CAPACITY 213 ug/dL (250-400)
[2016-04-09 14:43] LABS: BILIRUBIN,DIRECT 4.5 mg/dL (0.1-0.3)
--- NOTE | 2016-04-09 22:46 | Discharge Summary ---
Discharge Summary Hospital Course Date of Admission Apr 03, 2016 at 00:10 Date of Discharge Apr 08, 2016 at 16:00 Admitting Diagnosis anemia KARSON Ventura is a 75 year old female who was admitted on Apr 03, 2016 at 00:10 for Anemia Hospital Course [id number] Discharge Discharge Disposition Patient was discharged to SNF/Subacute Facility(03) Discharge Diagnoses: Haylie Billy NP Apr 09, 2016 22:46
--- NOTE | 2016-04-10 09:29 | Discharge Summary 2 SIG ---
DATE OF ADMISSION: 04/03/2016 DATE OF DISCHARGE: 04/08/2016 CONSULTANTS: 1. Kenneth Churchill M.D. 2. Elmo Hanley M.D. BRIEF HOSPITAL COURSE: The patient is a 75-year-old female with history of coronary artery disease, presented to ED complaining of generalized weakness and altered mental status for a day with no focal deficits. No fever. No chills. On evaluation at ED, the patient was very pale and had severe anemia, hemoglobin of 3.1 and platelet count was 92,000. Chest x-ray showed cardiomegaly with CHF. The patient was admitted to telemetry and was given blood transfusion. Dr. Churchill was consulted. CT of the abdomen and pelvis showed area of colon wall thickening with cirrhotic liver and evidence of portal hypertension, mild splenomegaly and multiple varices. There was also presence of cholelithiasis. The patient was given PPI and octreotide drips. She underwent EGD on 04/04/2016 with findings of 2 gastric AV malformation, status post APC and the patient had evidence of GAVE, also status post APC. Dr. Hanley was consulted. The patient had a history of gross hematuria. During course of hospitalization, urine was somewhat bloody. Physical examination revealed yellowish pink urine output with no significant hematuria. Laboratory data was essentially unremarkable from a genitourinary standpoint. Hematuria was mild, there was no emergent intervention needed and can follow up as outpatient for cystoscopy. Hemoglobin stabilized and she was eventually discharged back to intermediate facility. FINAL DIAGNOSES: 1. Acute severe anemia, status post blood transfusion. 2. 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 4. Gastritis, status post biopsy. 5. Liver cirrhosis. 6. Thrombocytopenia. 7. Schizoaffective disorder. 8. Hypertension. 9. Acute on chronic metabolic encephalopathy. 10. Coagulopathy. 11. Elevated carcinoembryonic antigen. 12. Iron deficiency anemia. 13. Pancreatic mass. Yana Segura M.D. I have been assigned to dictate discharge summary on this account and I was not involved in the patient's management. Haylie Billy N.P. DR: Mabel JOB#: [id number] CC: YANCY
[2016-05-01] MEDS ORDERED: ACETAMINOP160 MG/54 ORAL (15:12)
== END 2016-04-08 16:00 | DRG 253 ==
LOC: EDBD 22:10 → EMR 22:47 → 2E 23:13 → UNDOADMIN 04-03 00:10 → 2E 04-03 00:10 → EDBEDREQ 04-03 02:15 → 2E 04-03 03:15 → 4E 04-04 16:56 → 3E 04-06 21:08 → 4E 04-06 21:08 → UNDODISIN 04-08 16:00
PROC: 30233N1 Transfusion of Nonautologous Red Blood Cells into Peripheral Vein, Percutaneous Approach (ICD-10-PCS; 2016-04-03)
PROC: 0W3P8ZZ Control Bleeding in Gastrointestinal Tract, Via Natural or Artificial Opening Endoscopic (ICD-10-PCS; 2016-04-04)
PROC: 0DB68ZX Excision of Stomach, Via Natural or Artificial Opening Endoscopic, Diagnostic (ICD-10-PCS; principal; 2016-04-04 09:44)
DX: K92.2 Gastrointestinal hemorrhage, unspecified (principal); I81 Portal vein thrombosis; G93.41 Metabolic encephalopathy; D68.9 Coagulation defect, unspecified; R18.8 Other ascites; D69.6 Thrombocytopenia, unspecified; K74.60 Unspecified cirrhosis of liver; Q27.33 Arteriovenous malformation of digestive system vessel; F25.9 Schizoaffective disorder, unspecified; I10 Essential (primary) hypertension; I25.10 Atherosclerotic heart disease of native coronary artery without angina pectoris; K64.8 Other hemorrhoids; M81.0 Age-related osteoporosis without current pathological fracture; R97.0 Elevated carcinoembryonic antigen [CEA]; K72.90 Hepatic failure, unspecified without coma; E88.09 Other disorders of plasma-protein metabolism, not elsewhere classified; K31.819 Angiodysplasia of stomach and duodenum without bleeding; K86.9 Disease of pancreas, unspecified; D50.9 Iron deficiency anemia, unspecified; K76.6 Portal hypertension; K29.70 Gastritis, unspecified, without bleeding; I85.10 Secondary esophageal varices without bleeding
CPT/HCPCS: 36415; 71010; 74177; 76700; 80053; 81003; 82105; 82140; 82150; 82248; 82270; 82378; 82550; 82553; 82962; 83540; 83550; 83690; 83735; 83880; 84100; 84484; 85007; 85025; 85610; 85730; 86850; 86900; 86901; 86920; 90732; 93005; 93970; 94003; 94150; J8499; Q2036

== ENCOUNTER → 2016-05-01 | Outpatient (CLI) | payer MEDICARE, MEDICAID ==
[~2016-05-01] MED LIST changes: +ACETAMINOP160 MG/54 ORAL; +DOCUSATE SODIU100 MG ORAL; +IBUPROFEN600 MG ORAL; +PROMOD946 ML PO
--- NOTE | 2016-05-01 14:42 | GI Progress Note ---
Assessment/Plan Problems: (1) Confusion ICD Codes: R41.0 - Disorientation, unspecified SNOMED: 981289584 (2) Altered mental status (3) End stage liver disease ICD Codes: K72.90 - Hepatic failure, unspecified without coma SNOMED: 815701648 (4) Esophageal varices in cirrhosis ICD Codes: K74.60 - Unspecified cirrhosis of liver; I85.10 - Secondary esophageal varices without bleeding SNOMED: 010960600 (5) Hypoalbuminemia ICD Codes: E88.09 - Other disorders of plasma-protein metabolism, not elsewhere classified SNOMED: 247169541 (6) Anemia ICD Codes: D64.9 - Anemia SNOMED: 160699447 (7) Cirrhosis ICD Codes: K74.60 - Unspecified cirrhosis of liver SNOMED: 89121423 (8) Coagulopathy ICD Codes: D68.9 - Coagulation defect, unspecified SNOMED: 60175751 Status: not improved, unchanged Status Narrative Discussed with Dr. Churchill. Assessment/Plan rx lactulose 30 cc, PO BID d/c tylenol 2gm Na+ diet RTC x 1 month MELD score = 18, will refer pt for liver transplant Subjective Gastrointestinal/Abdominal: Reports: abdominal pain Subjective limited, patient with AMS Objective T 98.1 BP 118/60 P 76 95 RA General Appearance: no apparent distress, confused Cardiovascular: normal rate Respiratory/Chest: normal breath sounds, no respiratory distress Abdominal Exam: normal bowel sounds, non tender, soft Extremities: other - generalized weakness / mild leg edema Objective Endoscopy Procedure Note Indication for Procedure: gib Procedures Performed: EGD Operative Findings/Diagnosis: Gastric avm MICHAELA CHURCHILL - Apr 04, 2016 10:09 Maris Ramirez N.P. May 01, 2016 14:42
[2016-05-01 15:18] VITALS: BP 118/60
== END | disposition home or self-care (01) ==
LOC: PAN 14:07
DX: R41.0 Disorientation, unspecified (principal); R41.82 Altered mental status, unspecified; K72.90 Hepatic failure, unspecified without coma; K74.60 Unspecified cirrhosis of liver; E88.09 Other disorders of plasma-protein metabolism, not elsewhere classified; D64.9 Anemia, unspecified; D68.9 Coagulation defect, unspecified; R10.9 Unspecified abdominal pain
CPT/HCPCS: 99212

== ENCOUNTER 2016-05-10 18:50 | Inpatient (IN) | payer MEDICAID, MEDICARE ==
[~2016-05-10] VITALS: Ht 167.6 cm; Wt 76.7 kg
--- NOTE | 2016-05-10 18:48 | Emergency Room Report ---
History of Present Illness General Chief Complaint: Altered Level of Consciousness Source: Patient, Medical Record, EMS Present Illness HPI Patient is a 80-year-old female brought in by EMS after increased altered level consciousness. Patient had gradual onset of symptoms. The patient was noted to have prior history of diabetes. The patient had a blood sugar of approximately 50. Patient was given IV D50 by EMS without change in mental status. Patient also had prior history of cirrhosis and renal disease. Patient was noted to have previously been on lactulose. She is noted to be increased confused compared to her baseline. Allergies: Coded Allergies: No Known Allergies (Unverified , 12/05/12) Patient History Past Medical History: see triage record Reviewed Nursing Documentation: PMH: Agreed, PSxH: Agreed Review of Systems All Other Systems: limited - by ams Physical Exam Vital Signs Date Time Temp Pulse Resp B/P Pulse Ox O2 Delivery O2 Flow Rate FiO2 05/10/16 18:40 97.9 84 16 117/58 97 Room Air General Appearance: moderate distress, other - gcs E4V 2 M4, Chronically Ill Head: normocephalic Eyes: bilateral eye PERRL - hippus, bilateral eye scleral icterus ENT: normal pharynx Neck: full range of motion, supple, limited range of motion Respiratory: lungs clear, no rhonchi Cardiovascular #1: normal peripheral pulses, edema Gastrointestinal: normal bowel sounds, non tender, soft, no mass Musculoskeletal: back normal Neurologic: motor weakness, other - poor alertness Skin: other - jaundice Medical Decision Making Diagnostic Impression: Primary Impression: Altered level of consciousness Additional Impressions: Hepatic encephalopathy Anemia Severe sepsis ER Course Patient presented for altered mental status. Differential diagnosis included but was not limited to ischemic stroke, subarachnoid hemorrhage, hypoglycemia, spinal cord injury, hepatic encephalopathy, neurodegenerative disorder, urinary tract infection, hypoxemia.Because of complexity of patient's case laboratory testing and imaging studies were ordered. The patient appears to have evidence of hepatic encephalopathy.The patient was noted to have elevated lactic acid level as well as evidence of elevated ammonia consistent with hepatic encephalopathy. Patient was also noted to be anemic. Dr. strauss was contacted for inpatient management Laboratory Tests Test 05/10/16 19:00 05/10/16 20:03 05/10/16 20:40 White Blood Count 10.9 K/UL (4.8-10.8) H Red Blood Count 2.97 M/UL (4.20-5.40) L Hemoglobin 9.2 G/DL (12.0-16.0) L Hematocrit 30.0 % (37.0-47.0) L Mean Corpuscular Volume 101 FL (80-99) H Mean Corpuscular Hemoglobin 31.1 PG (27.0-31.0) H Mean Corpuscular Hemoglobin Concent 30.8 G/DL (32.0-36.0) L Red Cell Distribution Width 29.5 % (11.6-14.8) H Platelet Count 96 K/UL (150-450) L Mean Platelet Volume 9.3 FL (6.5-10.1) Neutrophils (%) (Auto) % (45.0-75.0) Lymphocytes (%) (Auto) % (20.0-45.0) Monocytes (%) (Auto) % (1.0-10.0) Eosinophils (%) (Auto) % (0.0-3.0) Basophils (%) (Auto) % (0.0-2.0) Differential Total Cells Counted 100 Neutrophils % (Manual) 82 % (45-75) H Lymphocytes % (Manual) 9 % (20-45) L Monocytes % (Manual) 7 % (1-10) Eosinophils % (Manual) 2 % (0-3) Basophils % (Manual) 0 % (0-2) Band Neutrophils 0 % (0-8) Platelet Estimate Decreased L Platelet Morphology Normal Hypochromasia 1+ Anisocytosis 1+ Prothrombin Time 22.1 SEC (9.30-11.50) H Prothrombin Time INR 2.1 (0.9-1.1) H PTT 54 SEC (23-33) H Sodium Level 148 mEQ/L (135-145) H Potassium Level 3.6 mEQ/L (3.4-4.9) Chloride Level 110 mEQ/L (98-107) H Carbon Dioxide Level 14 mEQ/L (20-30) L Anion Gap 24 (5-15) H Blood Urea Nitrogen 49 mg/dL (7-23) H Creatinine 5.3 mg/dL (0.5-0.9) H Estimate Glomerular Filtration Rate mL/min (>60) Glucose Level 108 mg/dL (74-106) H Lactic Acid Level 4.00 mmol/L (0.66-2.22) H 4.10 mmol/L (0.66-2.22) H Calcium Level 7.5 mg/dL (8.6-10.2) L Total Bilirubin 23.2 mg/dL (0.0-1.2) H Direct Bilirubin 15.5 mg/dL (0.1-0.3) H Aspartate Amino Transferase (AST) 123 U/L (5-40) H Alanine Aminotransferase (ALT) 24 U/L (3-33) Alkaline Phosphatase 74 U/L (35-104) Ammonia 136 umol/L (11-51) H Total Creatine Kinase 49 U/L (26-140) Creatine Kinase MB < 1.5 ng/mL (< 3.8) Creatine Kinase MB Relative Index 3.0 Troponin I < 0.30 ng/mL (<=0.30) Pro-B-Type Natriuretic Peptide 2036 pg/mL (0-125) H Total Protein 4.9 g/dL (6.6-8.7) L Albumin 1.9 g/dL (3.5-5.2) L Globulin 3.0 g/dL Albumin/Globulin Ratio 0.6 (1.0-2.7) L Urine Color Brown Urine Appearance Cloudy Urine pH 6.5 (4.5-8.0) Urine Specific [place] 1.015 (1.005-1.035) Urine Protein 3+ (NEGATIVE) H Urine Glucose (UA) Negative (NEGATIVE) Urine Ketones 1+ (NEGATIVE) H Urine Occult Blood 2+ (NEGATIVE) H Urine Nitrite Negative (NEGATIVE) Urine Bilirubin 3+ (NEGATIVE) H Urine Ictotest Positive Urine Urobilinogen 8 MG/DL (0.0-1.0) H Urine Leukocyte Esterase 2+ (NEGATIVE) H Urine RBC 2-4 /HPF (0 - 2) H Urine WBC 5-10 /HPF (0 - 2) H Urine Squamous Epithelial Cells Few /LPF (NONE/OCC) Urine Amorphous Sediment Few /LPF (NONE) H Urine Bacteria Many /HPF (NONE) H EKG Diagnostic Results Rate: normal Rhythm: NSR - 85 ST Segments: no acute changes Rhythm Strip Diag. Results EP Interpretation: yes Rhythm: NSR - 104, no PVC's, no ectopy Last Vital Signs Date Time Temp Pulse Resp B/P Pulse Ox O2 Delivery O2 Flow Rate FiO2 3/4/17 18:40 97.9 84 16 117/58 97 Room Air Status: unchanged Disposition: ADMITTED INPATIENT Condition: Serious Robert Shah May 10, 2016 18:48
[~2016-05-10 18:50] MED LIST changes: -DOCUSATE SODIU100 MG ORAL; -IBUPROFEN600 MG ORAL; -PROMOD946 ML PO
[2016-05-10] MEDS ORDERED: DOCUSATE SODIU100 MG ORAL (18:55)
[2016-05-10] MEDS ORDERED: Cefepime HCl 1 GM in NS 55 ML IV SCH (19:15)
[2016-05-10] MEDS ORDERED: Lactulose 200 GM in NS Irrig 1000ml 700 ML RECTAL ONE (19:15)
[2016-05-10 19:32] LABS: MEAN CORPUSCULAR HEMOGLOBIN 31.1 PG (27.0-31.0); MEAN CORPUSCULAR HGB CONC 30.8 G/DL (32.0-36.0); MEAN CORPUSCULAR VOLUME 101 FL (80-99); MEAN PLATELET VOLUME 9.3 FL (6.5-10.1); PLATELET COUNT 96 K/UL (150-450); RED BLOOD COUNT 2.97 M/UL (4.20-5.40); RED CELL DISTRIBUTION WIDTH 29.5 % (11.6-14.8); WHITE BLOOD COUNT 10.9 K/UL (4.8-10.8)
[2016-05-10 19:47] LABS: INR 2.1 (0.9-1.1); PROTHROMBIN TIME 22.1 SEC (9.30-11.50)
[2016-05-10 19:52] LABS: TROPONIN I < 0.30 ng/mL (<=0.30)
[2016-05-10 19:54] LABS: AMMONIA 136 umol/L (11-51)
[2016-05-10 19:55] LABS: ALANINE AMINOTRANSFERASE 24 U/L (3-33); ALBUMIN/GLOBULIN RATIO 0.6 (1.0-2.7); ANION GAP 24 (5-15); ASPARTATE AMINO TRANSFERASE 123 U/L (5-40); CALCIUM 7.5 mg/dL (8.6-10.2); CARBON DIOXIDE 14 mEQ/L (20-30); CHLORIDE 110 mEQ/L (98-107); CREATININE 5.3 mg/dL (0.5-0.9); HEMOLYSIS 1; POTASSIUM 3.6 mEQ/L (3.4-4.9); SODIUM 148 mEQ/L (135-145); TOTAL PROTEIN 4.9 g/dL (6.6-8.7)
[2016-05-10] MEDS ORDERED: Lactulose 20gm/30ml UDC ONE (19:55)
[2016-05-10] MEDS ORDERED: Cefepime 1gm vial ONE (19:56)
[2016-05-10 19:57] LABS: REFLEX LACTIC ACID YES OR NO YES
[2016-05-10 20:05] VITALS: BP 119/47
[2016-05-10 20:05] LABS: CKMB < 1.5 ng/mL (< 3.8)
[2016-05-10 20:17] LABS: ANISOCYTOSIS 1+; BAND NEUTROPHILS % (MANUAL) 0 % (0-8); BASOPHILS % (MANUAL) 0 % (0-2); EOSINOPHILS % (MANUAL) 2 % (0-3); HYPOCHROMASIA 1+; LYMPHOCYTES % (MANUAL) 9 % (20-45); NEUTROPHILS % (MANUAL) 82 % (45-75); PLATELET ESTIMATE DECREASED; PLATELET MORPHOLOGY NORMAL; TOTAL CELLS COUNTED 100
[2016-05-10] MEDS: metroNIDAZOLE 500mg 100 ML IV SCH (20:24)
[2016-05-10 20:32] LABS: BILIRUBIN,DIRECT 15.5 mg/dL (0.1-0.3)
[2016-05-10 21:16] LABS: APPEARANCE,URINE CLOUDY; KETONES,URINE 1+ (NEGATIVE); LEUKOCYTE ESTERASE ,URINE 2+ (NEGATIVE); NITRITE,URINE NEGATIVE (NEGATIVE); PH,URINE 6.5 (4.5-8.0); PROTEIN,URINE 3+ (NEGATIVE); UROBILINOGEN,URINE 8 MG/DL (0.0-1.0)
[2016-05-10 21:39] LABS: BACTERIA,URINE MANY /HPF; SQUAMOUS EPITHELIAL CELL,UR FEW /LPF (NONE/OCC)
[2016-05-10 21:40] LABS: AMORPHOUS SEDIMENT,UR FEW /LPF; ICTOTEST POSITIVE
[2016-05-10 22:05] VITALS: BP 123/51
[2016-05-10 22:45] VITALS: BP 134/66
[2016-05-10] MEDS ORDERED: Miralax 17gm pkt ORAL PRN (22:45)
[2016-05-10] MEDS ORDERED: Mylanta II UD 30ml ORAL PRN (22:45)
[2016-05-10] MEDS ORDERED: Zolpidem 5mg tab ORAL PRN (22:45)
[2016-05-10] MEDS ORDERED: LORazepam Inj 2mg/ml 1ml IV PRN (22:45)
[2016-05-10] MEDS ORDERED: Morphine Sulfate 2mg/ml Inj IVP PRN (22:45)
[2016-05-10] MEDS ORDERED: QVAR7.3 GM INH (23:12)
[2016-05-11] VITALS: BP 114/64
[2016-05-11] MEDS ORDERED: PROMOD946 ML PO (01:11)
[2016-05-11] MEDS ORDERED: IBUPROFEN600 MG ORAL (01:11)
[2016-05-11] MEDS ORDERED: LACTULOSE20 GM/301 ORAL (01:11)
[2016-05-11] MEDS: Lactulose 20gm/30ml UDC ORAL SCH ×5 (01:56→18:09)
[2016-05-11] MEDS: metroNIDAZOLE 500mg 100 ML IV SCH ×2 (02:47→11:15)
[2016-05-11 04:00] VITALS: BP 113/53
[2016-05-11 04:43] LABS: MEAN CORPUSCULAR HEMOGLOBIN 30.5 PG (27.0-31.0); MEAN CORPUSCULAR HGB CONC 29.6 G/DL (32.0-36.0); MEAN CORPUSCULAR VOLUME 103 FL (80-99); MEAN PLATELET VOLUME 9.4 FL (6.5-10.1); PLATELET COUNT 107 K/UL (150-450); RED BLOOD COUNT 3.09 M/UL (4.20-5.40); RED CELL DISTRIBUTION WIDTH 30.5 % (11.6-14.8); WHITE BLOOD COUNT 10.5 K/UL (4.8-10.8)
[2016-05-11 05:42] LABS: ALANINE AMINOTRANSFERASE 27 U/L (3-33); ALBUMIN/GLOBULIN RATIO 0.7 (1.0-2.7); ANION GAP 25 (5-15); ASPARTATE AMINO TRANSFERASE 138 U/L (5-40); CALCIUM 7.9 mg/dL (8.6-10.2); CARBON DIOXIDE 13 mEQ/L (20-30); CHLORIDE 110 mEQ/L (98-107); CHOLESTEROL 36 mg/dL (< 200); CREATININE 5.7 mg/dL (0.5-0.9); HEMOLYSIS 32; LDL CHOLESTEROL (CALC.) 13 mg/dL (60-99); POTASSIUM 4.5 mEQ/L (3.4-4.9); SODIUM 148 mEQ/L (135-145); TOTAL PROTEIN 5.3 g/dL (6.6-8.7)
[2016-05-11 05:53] LABS: THYROID STIMULATING HORMONE 0.081 uIU/mL (0.300-4.500)
[2016-05-11 06:04] LABS: AMMONIA 105 umol/L (11-51)
[2016-05-11 07:10] LABS: BILIRUBIN,DIRECT 17.2 mg/dL (0.1-0.3)
[2016-05-11 08:00] VITALS: BP 117/56
[2016-05-11] MEDS: Cefepime HCl 1 GM in D5W 55 ML IV SCH (08:55)
--- NOTE | 2016-05-11 09:05 | Diagnostic Imaging Report ---
Indication: Nasogastric tube placement Technique: XRAY ABDOMEN 1VIEW/KUB Comparison: None Findings: Nasogastric tube present within the stomach. Visualized bowel gas pattern is nonspecific. Impression: Nasogastric tube placement within the stomach.
--- NOTE | 2016-05-11 09:45 | Diagnostic Imaging Report ---
Indication: Shortness of breath Technique: XRAY CHEST 1 V Comparison: 04/05/16 Findings: Cardiomediastinal silhouette is stable. Atherosclerotic changes are seen. There is poor inspiration with central bronchovascular crowding and linear bibasilar opacities. Osseous structures are stable. Impression: Poor inspiration with central bronchovascular crowding and linear bibasilar atelectasis. Clinical correlation/followup recommended.
--- NOTE | 2016-05-11 11:06 | History and Physical ---
History of Present Illness General Date patient seen: May 11, 2016 Time patient seen: 10:00 Reason for Hospitalization: Altered Level of Consciousness Present Illness HPI 80-year-old female brought in by EMS due to increased altered level consciousness with gradual onset patient with hx of diabetes, blood sugar was 50 . Patient was given IV D50 by EMS without change in mental status. Patient also with prior history of cirrhosis and renal disease. Patient was previously on lactulose. workup in ER revealed elevated ammonia 136 severely elevated bili T/D 23.2/15.5, AST of 123 with ALT 24 thrombocytopenia, coagulopathy (2.1) elevated lactic acid (4.0) renal failure with BUN/creat 49/5.3 anemia 9.2/30 troponin negative pro BNP 2035 CXR Poor inspiration with central bronchovascular crowding and linear bibasilar atelectasis patient was admitted for further management with sepsis, ALOC,. hepatic encephalopathy, anemia Allergies: Coded Allergies: No Known Allergies (Unverified , 12/05/12) Medication History Scheduled Beclomethasone Dipropionate 40MCG Oral Inh (Qvar 40*), 2 PUFFS INH TWICE A DAY, (Reported) Docusate Sodium* (Colace*), 100 MG ORAL TWICE A DAY Docusate Sodium* (Docusate Sodium*), 100 MG ORAL DAILY, (Reported) Lactulose (Lactulose*), 30 ML ORAL BID, (Reported) Metoprolol Tartrate* (Metoprolol Tartrate*), 50 MG ORAL Q12HR Pantoprazole* (Protonix*), 40 MG ORAL Q12HR Protein Supplement (Promod), 30 ML PO DAILY, (Reported) Risperidone* (Risperdal*), 1 MG ORAL BEDTIME Scheduled PRN Ibuprofen* (Motrin*), 400 MG ORAL Q4HR PRN for Pain Scale (3-5), (Reported) Polyethylene Glycol 3350* (Miralax*), 17 GM ORAL DAILYPRN PRN for Constipation Discontinued Medications Acetaminophen* (Acetaminophen*), 650 MG ORAL Q6H PRN for Mild Pain/Temp > 100.5, (Reported) Discontinued Reason: Pt stopped taking med Patient History Limited by: medical condition History Provided By: Medical Record Healthcare decision maker Resuscitation status Full Code Advanced Directive on File Past Medical/Surgical History Past Medical/Surgical History: (1) Rhabdomyolysis (2) NSTEMI (non-ST elevated myocardial infarction) (3) Psychotic disorder (4) Hypernatremia (5) Schizoaffective disorder (6) Thrombocytopenia (7) HTN (hypertension) (8) Elevated CEA (9) Severe anemia (10) Pancreatic mass (11) Cirrhosis (12) Hypoalbuminemia (13) Esophageal varices in cirrhosis (14) Altered mental status (15) Hepatic encephalopathy Review of Systems ROS Narrative unable to obtain ROS due to ALOC Physical Exam General Appearance: lethargic Lines, tubes and drains: peripheral HEENT: normocephalic, atraumatic, other - icteric sclera , NGT Neck: non-tender, supple Respiratory/Chest: no respiratory distress, no accessory muscle use, decreased breath sounds - at bases Cardiovascular/Chest: normal rate, regular rhythm, no JVD Abdomen: soft - distended , hypoactive bowel sounds Skin Exam: jaundice Neurologic: other - lethargic Last 24 Hour Vital Signs Date Time Temp Pulse Resp B/P Pulse Ox O2 Delivery O2 Flow Rate FiO2 05/11/16 08:00 76 05/11/16 04:00 81 05/11/16 04:00 97.2 85 18 113/53 95 Room Air 05/11/16 00:00 97.3 86 18 114/64 97 Room Air 05/11/16 00:00 83 05/10/16 22:45 97.7 91 18 134/66 96 Room Air 05/10/16 22:05 98.0 87 13 123/51 99 Room Air 05/10/16 22:05 98.0 87 13 123/51 99 Room Air 05/10/16 20:05 98.1 85 12 119/47 98 Room Air 05/10/16 18:40 97.9 84 16 117/58 97 Room Air Laboratory Tests Test 05/10/16 19:00 05/10/16 20:03 05/10/16 20:40 05/11/16 04:00 White Blood Count 10.9 K/UL (4.8-10.8) H 10.5 K/UL (4.8-10.8) Red Blood Count 2.97 M/UL (4.20-5.40) L 3.09 M/UL (4.20-5.40) L Hemoglobin 9.2 G/DL (12.0-16.0) L 9.4 G/DL (12.0-16.0) L Hematocrit 30.0 % (37.0-47.0) L 31.8 % (37.0-47.0) L Mean Corpuscular Volume 101 FL (80-99) H 103 FL (80-99) H Mean Corpuscular Hemoglobin 31.1 PG (27.0-31.0) H 30.5 PG (27.0-31.0) Mean Corpuscular Hemoglobin Concent 30.8 G/DL (32.0-36.0) L 29.6 G/DL (32.0-36.0) L Red Cell Distribution Width 29.5 % (11.6-14.8) H 30.5 % (11.6-14.8) H Platelet Count 96 K/UL (150-450) L 107 K/UL (150-450) L Mean Platelet Volume 9.3 FL (6.5-10.1) 9.4 FL (6.5-10.1) Neutrophils (%) (Auto) % (45.0-75.0) % (45.0-75.0) Lymphocytes (%) (Auto) % (20.0-45.0) % (20.0-45.0) Monocytes (%) (Auto) % (1.0-10.0) % (1.0-10.0) Eosinophils (%) (Auto) % (0.0-3.0) % (0.0-3.0) Basophils (%) (Auto) % (0.0-2.0) % (0.0-2.0) Differential Total Cells Counted 100 Neutrophils % (Manual) 82 % (45-75) H Lymphocytes % (Manual) 9 % (20-45) L Monocytes % (Manual) 7 % (1-10) Eosinophils % (Manual) 2 % (0-3) Basophils % (Manual) 0 % (0-2) Band Neutrophils 0 % (0-8) Platelet Estimate Decreased L Platelet Morphology Normal Hypochromasia 1+ Anisocytosis 1+ Prothrombin Time 22.1 SEC (9.30-11.50) H Prothromb Time International Ratio 2.1 (0.9-1.1) H Activated Partial Thromboplast Time 54 SEC (23-33) H Sodium Level 148 mEQ/L (135-145) H 148 mEQ/L (135-145) H Potassium Level 3.6 mEQ/L (3.4-4.9) 4.5 mEQ/L (3.4-4.9) Chloride Level 110 mEQ/L (98-107) H 110 mEQ/L (98-107) H Carbon Dioxide Level 14 mEQ/L (20-30) L 13 mEQ/L (20-30) L Anion Gap 24 (5-15) H 25 (5-15) H Blood Urea Nitrogen 49 mg/dL (7-23) H 54 mg/dL (7-23) H Creatinine 5.3 mg/dL (0.5-0.9) H 5.7 mg/dL (0.5-0.9) H Estimat Glomerular Filtration Rate mL/min (>60) mL/min (>60) Glucose Level 108 mg/dL (74-106) H 55 mg/dL (74-106) L Lactic Acid Level 4.00 mmol/L (0.66-2.22) H 4.10 mmol/L (0.66-2.22) H Calcium Level 7.5 mg/dL (8.6-10.2) L 7.9 mg/dL (8.6-10.2) L Total Bilirubin 23.2 mg/dL (0.0-1.2) H 24.8 mg/dL (0.0-1.2) H Direct Bilirubin 15.5 mg/dL (0.1-0.3) H 17.2 mg/dL (0.1-0.3) H Aspartate Amino Transf (AST/SGOT) 123 U/L (5-40) H 138 U/L (5-40) H Alanine Aminotransferase (ALT/SGPT) 24 U/L (3-33) 27 U/L (3-33) Alkaline Phosphatase 74 U/L (35-104) 74 U/L (35-104) Ammonia 136 umol/L (11-51) H 105 umol/L (11-51) H Total Creatine Kinase 49 U/L (26-140) Creatine Kinase MB < 1.5 ng/mL (< 3.8) Creatine Kinase MB Relative Index 3.0 Troponin I < 0.30 ng/mL (<=0.30) Pro-B-Type Natriuretic Peptide 2036 pg/mL (0-125) H Total Protein 4.9 g/dL (6.6-8.7) L 5.3 g/dL (6.6-8.7) L Albumin 1.9 g/dL (3.5-5.2) L 2.2 g/dL (3.5-5.2) L Globulin 3.0 g/dL 3.1 g/dL Albumin/Globulin Ratio 0.6 (1.0-2.7) L 0.7 (1.0-2.7) L Urine Color Brown Urine Appearance Cloudy Urine pH 6.5 (4.5-8.0) Urine Specific [place] 1.015 (1.005-1.035) Urine Protein 3+ (NEGATIVE) H Urine Glucose (UA) Negative (NEGATIVE) Urine Ketones 1+ (NEGATIVE) H Urine Occult Blood 2+ (NEGATIVE) H Urine Nitrite Negative (NEGATIVE) Urine Bilirubin 3+ (NEGATIVE) H Urine Ictotest Positive Urine Urobilinogen 8 MG/DL (0.0-1.0) H Urine Leukocyte Esterase 2+ (NEGATIVE) H Urine RBC 2-4 /HPF (0 - 2) H Urine WBC 5-10 /HPF (0 - 2) H Urine Squamous Epithelial Cells Few /LPF (NONE/OCC) Urine Amorphous Sediment Few /LPF (NONE) H Urine Bacteria Many /HPF (NONE) H Triglycerides Level 97 mg/dL (< 150) Cholesterol Level 36 mg/dL (< 200) LDL Cholesterol 13 mg/dL (60-99) L HDL Cholesterol < 4 mg/dL (> 60) Cholesterol/HDL Ratio 9.0 (3.3-4.4) H Thyroid Stimulating Hormone (TSH) 0.081 uIU/mL (0.300-4.500) Height (Feet): 5 Height (Inches): 6.00 Weight (Pounds): 169 Medications Current Medications Medications (Trade) Dose Ordered Sig/Bing Route PRN Reason Start Time Stop Time Status Last Admin Dose Admin Acetaminophen (Tylenol) 650 mg Q4H PRN ORAL fever 05/10/16 22:45 06/09/16 22:44 Al Hydroxide/Mg Hydroxide (Mylanta II) 30 ml Q6H PRN ORAL dyspepsia 05/10/16 22:45 06/09/16 22:44 Cefepime HCl/ Dextrose (Maxipime/D5W) 55 ml @ 110 mls/hr Q24H IV 05/11/16 08:00 05/18/16 07:59 05/11/16 08:55 Dextrose (Dextrose 50%) STAT PRN IV Hypoglycemia 05/10/16 22:45 06/09/16 22:44 05/11/16 06:40 Lactulose 30 gm 30 gm EVERY 6 HOURS ORAL 05/11/16 00:00 06/10/16 00:00 05/11/16 08:55 Lorazepam (Ativan 2mg/ml 1ml) 0.5 mg Q4H PRN IV For Anxiety 05/10/16 22:45 05/17/16 22:44 Metronidazole (Flagyl) 100 ml @ 100 mls/hr Q8H IV 05/10/16 19:15 05/11/16 19:14 05/11/16 02:47 Morphine Sulfate (Morphine Sulfate) 2 mg EVERY 4 HOURS PRN IVP For Pain 05/10/16 22:45 05/17/16 22:44 Ondansetron HCl (Zofran) 4 mg Q6H PRN IVP Nausea & Vomiting 05/10/16 22:45 06/09/16 22:44 Polyethylene Glycol (Miralax) 17 gm HSPRN PRN ORAL Constipation 05/10/16 22:45 06/09/16 22:44 Risperidone (RisperDAL) 1 mg BEDTIME ORAL 05/11/16 21:00 06/10/16 20:59 Zolpidem Tartrate (Ambien) 5 mg HSPRN PRN ORAL Insomnia 05/10/16 22:45 06/09/16 22:44 Assessment/Plan Assessment/Plan ASSESSMENT possible sepsis lactic acidosis UTI hepatic encephalopathy cirrhosis end stage liver disease (with coagulopathy, thrombocytopenia, hypoalbuminemia) elevated bili likely hx of ETOH abuse chronic renal disease oliguria anemia of chronic disease hx of elevated CEA and AFP? possible malignancy low TSH PLAN OF CARE [facility] O2 HHN prn NPO NGT for meds CT head empiric abx, fup with cx Rifaximin and Lactulose, trend ammonia level vit K x 1 today to correct coagulopathy US guided paracentesis in am , send fluid for analysis if performed monitor renal parameters, avoid nephrotoxic, nephro eval renal US will obtain ECHO to check EF if she can handle some fluids monitor HH, likely anemia of chronic disease, transfuse prn anemia workup repeat tumor markers - per GI discretion Venous Duplex BLE, SCD if negative, no heparin due to thrombocytopenia check free T3 and T4 Skip (Liz Sy NP May 11, 2016 11:06
[2016-05-11 12:00] VITALS: BP 116/64
[2016-05-11] MEDS ORDERED: Phytonadione 10 MG in D5W 55 ML IVPB ONE (13:00)
[2016-05-11] MEDS ORDERED: D5W 275ml ONE (15:16)
[2016-05-11 16:00] VITALS: BP 140/82
--- NOTE | 2016-05-11 16:43 | Consultation ---
Consult Note Consult Note asked to eval for renal failure- Patient is a 80-year-old female brought in by EMS after increased altered level consciousness. Patient had gradual onset of symptoms. The patient was noted to have prior history of diabetes. The patient had a blood sugar of approximately 50. Patient was given IV D50 by EMS without change in mental status. Patient also had prior history of cirrhosis and renal disease. Patient was noted to have previously been on lactulose. She is noted to be increased confused compared to her baseline. Patient obtunded- in [facility]- Has NGT Examined- Data reviewed Assessment/Plan status: Acute renal failure- Etiology??? Possible hepatoRenal possible sepsis lactic acidosis UTI cirrhosis , hepatic encephalopathy, elevated bili end stage liver disease (with coagulopathy, thrombocytopenia, hypoalbuminemia) oliguria anemia of chronic disease hx of elevated CEA and AFP? possible malignancy Plan: Hydrate- Lactulose- IV protonix- Monitor renal parameters- Avoid nephro & Hepato toxic meds per orders FERNANDA PÉREZ May 11, 2016 16:43
[2016-05-11 20:00] VITALS: BP 134/56
[2016-05-11] MEDS: Rifaximin 550mg tab ORAL SCH (21:24)
[2016-05-11] MEDS: Pantoprazole Inj IVP SCH (21:24)
[2016-05-12] VITALS: BP 118/68
[2016-05-12] MEDS: Lactulose 20gm/30ml UDC ORAL SCH ×4 (00:19→18:53)
--- NOTE | 2016-05-12 00:28 | Consultation ---
DATE OF CONSULTATION: 05/11/2016 CHIEF COMPLAINT: Encephalopathy. HISTORY OF PRESENT ILLNESS: This is a very pleasant 75-year-old patient known to me from clinic. The patient has history of cirrhosis complicated with encephalopathy, elevated alpha-fetoprotein of 68, ascites, thrombocytopenia, anemia, coagulopathy, hypoalbuminemia, and esophageal varices. The patient was admitted also with complaint of encephalopathy and elevated ammonia level. The last time we saw her in the office was on 05/01/2016. We will start the patient on lactulose twice a day. We recommended the patient to be referred for transplant evaluation. The patient's score was 18. PAST MEDICAL HISTORY: As above. MEDICATIONS: Please see medication reconciliation list. ALLERGIES: No known drug allergy. SOCIAL HISTORY: There is no recent history of tobacco, alcohol, or drug abuse. The patient apparently has prior history of alcohol usage. FAMILY HISTORY: Noncontributory. REVIEW OF SYSTEMS: Limited with altered mental status. PHYSICAL EXAMINATION: GENERAL: This is a well-developed female. VITAL SIGNS: Temperature 97.2 degrees, pulse 85, respirations 18, and blood pressure 113/53. HEENT: Normocephalic and atraumatic. Mild pale conjunctivae. Infectious sclera is jaundice and icterus. NECK: Supple. No evidence of lymphadenopathy. CARDIOVASCULAR: Regular rhythm. Plus S1 and S2. LUNGS: Decreased breath sounds bilaterally and diffusely. ABDOMEN: Soft and nontender. There is evidence of mild ascites. No rebound. No guarding. No peritoneal sign. EXTREMITIES: No cyanosis. No clubbing. No edema. LABORATORY DATA: WBC 10.5, hemoglobin 9.4, hematocrit 31, and platelets of 107,000. Sodium 148, potassium 4.5, BUN is 54, and creatinine 5.7. Bilirubin is 24.8. AST of 138, ALT of 27, and alkaline phosphatase of 105. Albumin is 2.2. ASSESSMENT AND PLAN: This is a 75-year-old female with cirrhosis, complicated with thrombocytopenia, encephalopathy, ascites, hypoalbuminemia, and coagulopathy. PLAN: Add Xifaxan to lactulose. Keep the patient on a dose of vitamin K. We are going to order ultrasound of paracentesis, rule out STP. Monitor hemoglobin and hematocrit. Transfuse as needed. Consider adding propranolol for the gastrointestinal prophylaxis for variceal bleeding. If the vital signs are stable tomorrow, meanwhile, the patient as an outpatient needs to be referred for transplant evaluation. Kenneth Churchill M.D. DR: ROGER JOB#: [id number] CC:
[2016-05-12 04:00] VITALS: BP 136/60
[2016-05-12 06:10] LABS: BASOPHILS % (AUTO) 1.1 % (0.0-2.0); EOSINOPHILS % (AUTO) 0.8 % (0.0-3.0); MEAN CORPUSCULAR HEMOGLOBIN 30.6 PG (27.0-31.0); MEAN CORPUSCULAR HGB CONC 30.7 G/DL (32.0-36.0); MEAN CORPUSCULAR VOLUME 100 FL (80-99); MEAN PLATELET VOLUME 10.3 FL (6.5-10.1); MONOCYTES % (AUTO) 9.4 % (1.0-10.0); NEUTROPHILS % (AUTO) 82.7 % (45.0-75.0); PLATELET COUNT 101 K/UL (150-450); RED BLOOD COUNT 2.98 M/UL (4.20-5.40); RED CELL DISTRIBUTION WIDTH 30.1 % (11.6-14.8)
[2016-05-12 06:22] LABS: INR 2.1 (0.9-1.1); PROTHROMBIN TIME 21.6 SEC (9.30-11.50)
[2016-05-12 06:47] LABS: AMMONIA 87 umol/L (11-51)
[2016-05-12 06:48] LABS: HEMOLYSIS 23; IRON 76 ug/dL (37-145); TOTAL IRON BINDING CAPACITY 139 ug/dL (250-400)
[2016-05-12 07:01] LABS: ALANINE AMINOTRANSFERASE 21 U/L (3-33); ALBUMIN/GLOBULIN RATIO 0.6 (1.0-2.7); ANION GAP 27 (5-15); ASPARTATE AMINO TRANSFERASE 128 U/L (5-40); CARBON DIOXIDE 12 mEQ/L (20-30); CHLORIDE 114 mEQ/L (98-107); CHOLESTEROL 37 mg/dL (< 200); CREATININE 6.2 mg/dL (0.5-0.9); LDL CHOLESTEROL (CALC.) 15 mg/dL (60-99); POTASSIUM 3.4 mEQ/L (3.4-4.9); SODIUM 153 mEQ/L (135-145); TOTAL PROTEIN 5.2 g/dL (6.6-8.7)
[2016-05-12 07:02] LABS: CRP QUANT 15.6 mg/dL (< 0.5); MAGNESIUM 2.7 mg/dL (1.7-2.5); PHOSPHORUS 6.1 mg/dL (2.5-4.8); URIC ACID 12.3 mg/dL (3.0-7.5)
[2016-05-12 07:05] LABS: FERRITIN 255 ng/mL (13-150); FREE T3 1.4 pg/mL (2.3-4.2)
[2016-05-12 07:50] LABS: BILIRUBIN,DIRECT 16.6 mg/dL (0.1-0.3)
[2016-05-12 08:00] VITALS: BP 129/89
[2016-05-12] MEDS: Cefepime HCl 1 GM in D5W 55 ML IV SCH (08:27)
[2016-05-12] MEDS: Pantoprazole Inj IVP SCH ×2 (08:27→21:21)
[2016-05-12] MEDS: Rifaximin 550mg tab ORAL SCH ×2 (08:27→21:21)
--- NOTE | 2016-05-12 09:34 | Diagnostic Imaging Report ---
Indication: Altered mental status Technique: Continuous helical CT scanning of the head was performed utilizing automated exposure control without intravenous contrast material. Axial and coronal reconstructions were obtained. Comparison: 05/29/15 CT dose: Total DLP 1326 mGycm; CTDI vol 70.4 mGy Findings: There is no acute intracranial hemorrhage, mass effect or cortical edema. The ventricles, cisterns and sulci are prominent consistent with atrophy. Periventricular hypoattenuation is seen, a nonspecific finding. The posterior fossa and fourth ventricle are unremarkable. Sellar and suprasellar regions are grossly unremarkable. Visualized mastoid air cells and paranasal sinuses are unremarkable. No focal lesions of the bony calvarium or soft tissues of the scalp are seen. Impression: No evidence of acute intracranial hemorrhage, mass effect or cortical edema. MRI may be obtained for more sensitive evaluation as clinically indicated. Atrophy and nonspecific periventricular hypoattenuation suggestive of chronic ischemic microvascular changes. The CT scanner at [facility] is accredited by the [employer] and the scans are performed using protocols designed to limit radiation exposure to as low as reasonably achievable to attain images of sufficient resolution adequate for diagnostic evaluation.
--- NOTE | 2016-05-12 11:52 | Pulmonology Progress Note ---
Assessment/Plan Problems: (1) Hepatic encephalopathy (2) End stage liver disease (3) Pancreatic mass (4) Schizoaffective disorder (5) Coagulopathy (6) Elevated CEA Assessment/Plan IV fluids Lactulose check ammonia med/surg social service consult for end of life planning pts daughter had received a presentation from hospice previously. Subjective ROS Limited/Unobtainable: Yes Interval Events: comfortable, open eyes, not communicating Allergies: Coded Allergies: No Known Allergies (Unverified , 12/05/12) Objective Last 24 Hour Vital Signs Date Time Temp Pulse Resp B/P Pulse Ox O2 Delivery O2 Flow Rate FiO2 05/12/16 08:00 96.1 76 18 129/89 97 05/12/16 04:00 96.8 84 22 136/60 94 Room Air 05/12/16 04:00 80 05/12/16 00:00 76 05/12/16 00:00 96.6 82 20 118/68 94 Room Air 05/11/16 20:00 87 05/11/16 20:00 97.0 88 22 134/56 95 Room Air 05/11/16 16:00 80 05/11/16 16:00 99.3 109 19 140/82 97 Room Air 05/11/16 12:00 87 05/11/16 12:00 96.8 90 24 116/64 95 Room Air Intake and Output 05/11/16 05/12/16 18:59 06:59 Intake Total 261 ml 60 ml Output Total 50 ml 25 ml Balance 211 ml 35 ml Intake Free Water 60 ml 60 ml IV Total 111 ml Other 90 ml Output Urine Total 50 ml 25 ml # Voids 50 # Bowel Movements 1 5 HEENT: normocephalic, atraumatic Respiratory/Chest: chest wall non-tender, lungs clear Breasts: no masses Cardiovascular: normal peripheral pulses, regular rhythm Abdomen: normal bowel sounds, soft, non tender Skin: no rash Neurologic/Psychiatric: game operator II-XII grossly normal, abnormal gait Lymphatic: no neck adenopathy Musculoskeletal: no effusion Microbiology Date/Time Source Procedure Growth Status 05/10/16 19:00 Blood Blood Culture - Preliminary NO GROWTH AFTER 24 HOURS Resulted 05/10/16 18:45 Blood Blood Culture - Preliminary NO GROWTH AFTER 24 HOURS Resulted 05/10/16 20:40 Urine,Clean Catch Urine Culture - Preliminary Strep Species, Alpha Hemolytic Resulted Laboratory Tests 05/11/16 18:50: Urine Random Sodium 31 05/12/16 04:00: Urine Eosinophils None seen 05/12/16 04:25: White Blood Count 10.0, Red Blood Count 2.98L, Hemoglobin 9.1L, Hematocrit 29.7L , Mean Corpuscular Volume 100H, Mean Corpuscular Hemoglobin 30.6, Mean Corpuscular Hemoglobin Concent 30.7L, Red Cell Distribution Width 30.1H, Platelet Count 101L, Mean Platelet Volume 10.3H, Neutrophils (%) (Auto) 82.7H, Lymphocytes (%) (Auto) 6.0L, Monocytes (%) (Auto) 9.4, Eosinophils (%) (Auto) 0.8, Basophils (%) (Auto) 1.1, Prothrombin Time 21.6H, Prothromb Time International Ratio 2.1H, Activated Partial Thromboplast Time 53H, Sodium Level 153H, Potassium Level 3.4, Chloride Level 114H, Carbon Dioxide Level 12L, Anion Gap 27H, Blood Urea Nitrogen 60H, Creatinine 6.2H, Estimat Glomerular Filtration Rate , Glucose Level 94, Uric Acid 12.3H, Calcium Level 8.0L, Phosphorus Level 6.1H, Magnesium Level 2.7H, Iron Level 76, Total Iron Binding Capacity 139L, Percent Iron Saturation 55H, Unsaturated Iron Binding 63L, Ferritin 255H, Total Bilirubin 25.1H, Direct Bilirubin 16.6H, Gamma Glutamyl Transpeptidase 27, Aspartate Amino Transf (AST/SGOT) 128H, Alanine Aminotransferase (ALT/SGPT) 21, Alkaline Phosphatase 100, Ammonia 87H, Total Creatine Kinase 172H, C-Reactive Protein, Quantitative 15.6H, Pro-B-Type Natriuretic Peptide 2063H, Total Protein 5.2L, Albumin 2.0L, Globulin 3.2, Albumin/Globulin Ratio 0.6L, Triglycerides Level 92, Cholesterol Level 37, LDL Cholesterol 15L, HDL Cholesterol < 4, Cholesterol/HDL Ratio 9.0H, Vitamin B12 Level > 2000H, RBC Folate Hemolysate [Pending], Red Blood Cell Folate [Pending] , Free Thyroxine 1.26, Free Triiodothyronine 1.4L, Cortisol [Pending] Current Medications Medications (Trade) Dose Ordered Sig/Bing Route PRN Reason Start Time Stop Time Status Last Admin Dose Admin Cefepime HCl/ Dextrose (Maxipime/D5W) 55 ml @ 110 mls/hr Q24H IV 05/11/16 08:00 05/18/16 07:59 05/12/16 08:27 Dextrose (Dextrose 50%) STAT PRN IV Hypoglycemia 05/10/16 22:45 06/09/16 22:44 05/11/16 06:40 Lactulose 30 gm 30 gm EVERY 6 HOURS ORAL 05/11/16 00:00 06/10/16 00:00 05/12/16 06:06 Lorazepam (Ativan 2mg/ml 1ml) 0.5 mg Q4H PRN IV For Anxiety 05/10/16 22:45 05/17/16 22:44 Morphine Sulfate (Morphine Sulfate) 2 mg EVERY 4 HOURS PRN IVP For Pain 05/10/16 22:45 05/17/16 22:44 Ondansetron HCl (Zofran) 4 mg Q6H PRN IVP Nausea & Vomiting 05/10/16 22:45 06/09/16 22:44 Pantoprazole (Protonix) 40 mg EVERY 12 HOURS IVP 05/11/16 21:00 06/10/16 20:59 05/12/16 08:27 Polyethylene Glycol (Miralax) 17 gm HSPRN PRN ORAL Constipation 05/10/16 22:45 06/09/16 22:44 Rifaximin (Xifaxan) 550 mg EVERY 12 HOURS ORAL 05/11/16 21:00 05/18/16 20:59 05/12/16 08:27 Zolpidem Tartrate (Ambien) 5 mg HSPRN PRN ORAL Insomnia 05/10/16 22:45 06/09/16 22:44 GENESIS ANDRES May 12, 2016 11:52
[2016-05-12 12:00] VITALS: BP 112/70
--- NOTE | 2016-05-12 14:24 | General Progress Note ---
Assessment/Plan Status: unchanged, deteriorating Assessment/Plan status; Acute renal failure- Etiology??? Possible hepatoRenal possible sepsis lactic acidosis UTI cirrhosis , hepatic encephalopathy, elevated bili end stage liver disease (with coagulopathy, thrombocytopenia, hypoalbuminemia) oliguria anemia of chronic disease hx of elevated CEA and AFP? possible malignancy Plan: Hydrate- Lactulose- IV protonix- Monitor renal parameters- Avoid nephro & Hepato toxic meds per orders poor prognosis- dialysis will not change the overall coarse of the liver disease and possible underlying malignancy discussed with Dr Segura Subjective ROS Limited/Unobtainable: Yes Allergies: Coded Allergies: No Known Allergies (Unverified , 12/05/12) Objective Last 24 Hour Vital Signs Date Time Temp Pulse Resp B/P Pulse Ox O2 Delivery O2 Flow Rate FiO2 05/12/16 12:00 96.1 83 19 112/70 98 Room Air 05/12/16 11:54 83 05/12/16 08:00 96.1 76 18 129/89 97 05/12/16 07:55 80 05/12/16 04:00 96.8 84 22 136/60 94 Room Air 05/12/16 04:00 80 05/12/16 00:00 76 05/12/16 00:00 96.6 82 20 118/68 94 Room Air 05/11/16 20:00 87 05/11/16 20:00 97.0 88 22 134/56 95 Room Air 05/11/16 16:00 80 05/11/16 16:00 99.3 109 19 140/82 97 Room Air Intake and Output 05/11/16 05/12/16 19:00 07:00 Intake Total 261 ml 60 ml Output Total 50 ml 25 ml Balance 211 ml 35 ml Intake Free Water 60 ml 60 ml IV Total 111 ml Other 90 ml Output Urine Total 50 ml 25 ml # Voids 50 # Bowel Movements 1 5 Laboratory Tests 05/11/16 18:50: Urine Random Sodium 31 05/12/16 04:00: Urine Eosinophils None seen 05/12/16 04:25: White Blood Count 10.0, Red Blood Count 2.98L, Hemoglobin 9.1L, Hematocrit 29.7L , Mean Corpuscular Volume 100H, Mean Corpuscular Hemoglobin 30.6, Mean Corpuscular Hemoglobin Concent 30.7L, Red Cell Distribution Width 30.1H, Platelet Count 101L, Mean Platelet Volume 10.3H, Neutrophils (%) (Auto) 82.7H, Lymphocytes (%) (Auto) 6.0L, Monocytes (%) (Auto) 9.4, Eosinophils (%) (Auto) 0.8, Basophils (%) (Auto) 1.1, Prothrombin Time 21.6H, Prothromb Time International Ratio 2.1H, Activated Partial Thromboplast Time 53H, Sodium Level 153H, Potassium Level 3.4, Chloride Level 114H, Carbon Dioxide Level 12L, Anion Gap 27H, Blood Urea Nitrogen 60H, Creatinine 6.2H, Estimat Glomerular Filtration Rate , Glucose Level 94, Uric Acid 12.3H, Calcium Level 8.0L, Phosphorus Level 6.1H, Magnesium Level 2.7H, Iron Level 76, Total Iron Binding Capacity 139L, Percent Iron Saturation 55H, Unsaturated Iron Binding 63L, Ferritin 255H, Total Bilirubin 25.1H, Direct Bilirubin 16.6H, Gamma Glutamyl Transpeptidase 27, Aspartate Amino Transf (AST/SGOT) 128H, Alanine Aminotransferase (ALT/SGPT) 21, Alkaline Phosphatase 100, Ammonia 87H, Total Creatine Kinase 172H, C-Reactive Protein, Quantitative 15.6H, Pro-B-Type Natriuretic Peptide 2063H, Total Protein 5.2L, Albumin 2.0L, Globulin 3.2, Albumin/Globulin Ratio 0.6L, Triglycerides Level 92, Cholesterol Level 37, LDL Cholesterol 15L, HDL Cholesterol < 4, Cholesterol/HDL Ratio 9.0H, Vitamin B12 Level > 2000H, RBC Folate Hemolysate [Pending], Red Blood Cell Folate [Pending] , Free Thyroxine 1.26, Free Triiodothyronine 1.4L, Cortisol [Pending] Height (Feet): 5 Height (Inches): 6.00 Weight (Pounds): 169 General Appearance: lethargic, confused, mild distress, other - jaundiced Cardiovascular: tachycardia Respiratory/Chest: decreased breath sounds Abdomen: other - ascitis Edema: 2+ Arm (L), 2+ Arm (R), 2+ Leg (L), 2+ Leg (R), 2+ Pedal (L), 2+ Pedal ( R), 2+ Generalized FERNANDA PÉREZ May 12, 2016 14:24
--- NOTE | 2016-05-12 15:10 | GI Progress Note ---
Assessment/Plan Problems: (1) End stage liver disease ICD Codes: K72.90 - Hepatic failure, unspecified without coma SNOMED: 403337685 (2) Altered mental status (3) Severe anemia ICD Codes: D64.9 - Anemia, unspecified SNOMED: 630517358 (4) Elevated CEA ICD Codes: R97.0 - Elevated carcinoembryonic antigen [CEA] SNOMED: 84734811, 146684739 (5) Hypoalbuminemia ICD Codes: E88.09 - Other disorders of plasma-protein metabolism, not elsewhere classified SNOMED: 819496641 (6) Thrombocytopenia ICD Codes: D69.6 - Thrombocytopenia SNOMED: 144383379 (7) Anemia ICD Codes: D64.9 - Anemia SNOMED: 791343097 (8) Serum ammonia increased ICD Codes: E72.20 - Disorder of urea cycle metabolism, unspecified SNOMED: 7366659 Status: unchanged Status Narrative Discussed with Dr. Churchill. Assessment/Plan s/p EGD 04/04/15 - Gastric AVM elevated iron pt needs to be referred for liver transplant evaluation elevated ammonia >> xifaxan + lactulose fu abdominal paracentsis >> r/o SBP monitor H&H, transfuse prn consider propranolol for GI prophylaxis for EV bleed ppi fu labs Subjective Subjective limited Objective Last 24 Hour Vital Signs Date Time Temp Pulse Resp B/P Pulse Ox O2 Delivery O2 Flow Rate FiO2 05/12/16 12:00 96.1 83 19 112/70 98 Room Air 05/12/16 11:54 83 05/12/16 08:00 96.1 76 18 129/89 97 05/12/16 07:55 80 05/12/16 04:00 96.8 84 22 136/60 94 Room Air 05/12/16 04:00 80 05/12/16 00:00 76 05/12/16 00:00 96.6 82 20 118/68 94 Room Air 05/11/16 20:00 87 05/11/16 20:00 97.0 88 22 134/56 95 Room Air 05/11/16 16:00 80 05/11/16 16:00 99.3 109 19 140/82 97 Room Air Intake and Output 05/11/16 05/12/16 19:00 07:00 Intake Total 261 ml 60 ml Output Total 50 ml 25 ml Balance 211 ml 35 ml Intake Free Water 60 ml 60 ml IV Total 111 ml Other 90 ml Output Urine Total 50 ml 25 ml # Voids 50 # Bowel Movements 1 5 Laboratory Tests Test 05/11/16 18:50 05/12/16 04:00 05/12/16 04:25 Urine Random Sodium 31 mmol/L Urine Eosinophils None seen White Blood Count 10.0 K/UL (4.8-10.8) Red Blood Count 2.98 M/UL (4.20-5.40) L Hemoglobin 9.1 G/DL (12.0-16.0) L Hematocrit 29.7 % (37.0-47.0) L Mean Corpuscular Volume 100 FL (80-99) H Mean Corpuscular Hemoglobin 30.6 PG (27.0-31.0) Mean Corpuscular Hemoglobin Concent 30.7 G/DL (32.0-36.0) L Red Cell Distribution Width 30.1 % (11.6-14.8) H Platelet Count 101 K/UL (150-450) L Mean Platelet Volume 10.3 FL (6.5-10.1) H Neutrophils (%) (Auto) 82.7 % (45.0-75.0) H Lymphocytes (%) (Auto) 6.0 % (20.0-45.0) L Monocytes (%) (Auto) 9.4 % (1.0-10.0) Eosinophils (%) (Auto) 0.8 % (0.0-3.0) Basophils (%) (Auto) 1.1 % (0.0-2.0) Prothrombin Time 21.6 SEC (9.30-11.50) H Prothromb Time International Ratio 2.1 (0.9-1.1) H Activated Partial Thromboplast Time 53 SEC (23-33) H Sodium Level 153 mEQ/L (135-145) H Potassium Level 3.4 mEQ/L (3.4-4.9) Chloride Level 114 mEQ/L (98-107) H Carbon Dioxide Level 12 mEQ/L (20-30) L Anion Gap 27 (5-15) H Blood Urea Nitrogen 60 mg/dL (7-23) H Creatinine 6.2 mg/dL (0.5-0.9) H Estimat Glomerular Filtration Rate mL/min (>60) Glucose Level 94 mg/dL (74-106) Uric Acid 12.3 mg/dL (3.0-7.5) H Calcium Level 8.0 mg/dL (8.6-10.2) L Phosphorus Level 6.1 mg/dL (2.5-4.8) H Magnesium Level 2.7 mg/dL (1.7-2.5) H Iron Level 76 ug/dL (37-145) Total Iron Binding Capacity 139 ug/dL (250-400) L Percent Iron Saturation 55 % (15-50) H Unsaturated Iron Binding 63 ug/dL (112-346) L Ferritin 255 ng/mL (13-150) H Total Bilirubin 25.1 mg/dL (0.0-1.2) H Direct Bilirubin 16.6 mg/dL (0.1-0.3) H Gamma Glutamyl Transpeptidase 27 U/L (5-36) Aspartate Amino Transf (AST/SGOT) 128 U/L (5-40) H Alanine Aminotransferase (ALT/SGPT) 21 U/L (3-33) Alkaline Phosphatase 100 U/L (35-104) Ammonia 87 umol/L (11-51) H Total Creatine Kinase 172 U/L (26-140) H C-Reactive Protein, Quantitative 15.6 mg/dL (< 0.5) H Pro-B-Type Natriuretic Peptide 2063 pg/mL (0-125) H Total Protein 5.2 g/dL (6.6-8.7) L Albumin 2.0 g/dL (3.5-5.2) L Globulin 3.2 g/dL Albumin/Globulin Ratio 0.6 (1.0-2.7) L Triglycerides Level 92 mg/dL (< 150) Cholesterol Level 37 mg/dL (< 200) LDL Cholesterol 15 mg/dL (60-99) L HDL Cholesterol < 4 mg/dL (> 60) Cholesterol/HDL Ratio 9.0 (3.3-4.4) H Vitamin B12 Level > 2000 pg/mL (211-946) H RBC Folate Hemolysate Pending Red Blood Cell Folate Pending Free Thyroxine 1.26 ng/dL (0.86-1.85) Free Triiodothyronine 1.4 pg/mL (2.3-4.2) L Cortisol Pending Height (Feet): 5 Height (Inches): 6.00 Weight (Pounds): 169 General Appearance: alert, confused Cardiovascular: normal rate Respiratory/Chest: normal breath sounds, no respiratory distress Abdominal Exam: normal bowel sounds, non tender, soft Objective Date of Service: 04/03/16 Endoscopy Procedure Note Indication for Procedure: gib Procedures Performed: EGD Operative Findings/Diagnosis: Gastric avm MICHAELA CHURCHILL - Apr 04, 2016 10:09 Maris Ramirez N.P. May 12, 2016 15:10
[2016-05-12 16:00] VITALS: BP 116/68
--- NOTE | 2016-05-12 16:53 | Wound Care Consultation ---
Wound Assessment Wound Assessment : Wound Present on Admission: No New Wound: Yes Status Change of Wound: No Wound Location Body Site Modif: mid Wound Location Body Site: sacral Wound Type: pressure ulcer Beatriz Test: Does not Beatriz Pressure Ulcer Stage: II Wound Thickness: Partial Thickness Wound Length: 1.5 Wound Width: 1.5 Wound Depth: 0.1 Percent of Wound [place]/Red: 100 Wound Drainage Description: Serosanguineous Wound Drainage Amount: Scant Wound Drainage Odor: None/Absent Tissue Surrounding Wound: Intact Wound General Appearance: Reddened Wound Comment #1 Sacral stage II pressure ulcer Recommendation -Cleanse with saline, pat dry, apply Triad cream, cover with bordered gauze daily and PRN soiled/dislodged -Keep clean and dry -Turn and reposition -Optimize nutrition -Low air loss overlay mattress -Offload both heels -Heel protector on both heels -Assess and f/u accordingly foe any changes DASHAWN WATSON RN May 12, 2016 16:53
[2016-05-12] MEDS ORDERED: Cefepime HCl 500 MG in D5W 55 ML IV SCH (17:30)
[2016-05-12 20:40] VITALS: BP 126/68
[2016-05-13] VITALS: BP 114/60
[2016-05-13] MEDS: Lactulose 20gm/30ml UDC ORAL SCH ×4 (00:39→18:18)
[2016-05-13 04:00] VITALS: BP 114/50
[2016-05-13 05:52] LABS: MEAN CORPUSCULAR HEMOGLOBIN 31.2 PG (27.0-31.0); MEAN CORPUSCULAR HGB CONC 31.2 G/DL (32.0-36.0); MEAN CORPUSCULAR VOLUME 100 FL (80-99); MEAN PLATELET VOLUME 11.2 FL (6.5-10.1); PLATELET COUNT 87 K/UL (150-450); RED BLOOD COUNT 2.86 M/UL (4.20-5.40); RED CELL DISTRIBUTION WIDTH 29.4 % (11.6-14.8); WHITE BLOOD COUNT 9.5 K/UL (4.8-10.8)
[2016-05-13 06:10] LABS: ALANINE AMINOTRANSFERASE 28 U/L (3-33); ALBUMIN/GLOBULIN RATIO 0.6 (1.0-2.7); ANION GAP 24 (5-15); ASPARTATE AMINO TRANSFERASE 120 U/L (5-40); CALCIUM 7.6 mg/dL (8.6-10.2); CARBON DIOXIDE 13 mEQ/L (20-30); CHLORIDE 114 mEQ/L (98-107); HEMOLYSIS 0; MAGNESIUM 2.5 mg/dL (1.7-2.5); PHOSPHORUS 5.7 mg/dL (2.5-4.8); POTASSIUM 2.9 mEQ/L (3.4-4.9); SODIUM 151 mEQ/L (135-145); TOTAL PROTEIN 4.9 g/dL (6.6-8.7)
[2016-05-13] MEDS ORDERED: LORazepam Inj 2mg/ml 1ml IV PRN (07:00)
[2016-05-13 07:14] LABS: AMMONIA 55 umol/L (11-51)
[2016-05-13 07:17] LABS: BILIRUBIN,DIRECT 17.7 mg/dL (0.1-0.3)
[2016-05-13 08:00] VITALS: BP 122/59
[2016-05-13] MEDS: Rifaximin 550mg tab ORAL SCH ×2 (09:35→21:05)
--- NOTE | 2016-05-13 10:18 | Diagnostic Imaging Report ---
Indication: RENAL-A Technique: Grayscale and duplex images of the kidneys, retroperitoneum, and bladder were obtained. Comparison:Abdomen ultrasound dated 04/02/2016, abdomen CT 04/03/2016 Findings: Right kidney measures 11.7 cm in length. Left kidney measures 9 cm in length. Left kidney demonstrates increased echogenicity. No hydronephrosis. Left kidney demonstrates multiple cysts.. Normal inferior vena cava. Bladder is empty, contains a Maxwell catheter. Incidentally noted are ascites fluid and varices in the right renal hilar region. Impression: Increased left renal echogenicity, consistent with medical renal disease Negative for hydronephrosis Incidental finding multiple left renal cysts Empty bladder containing Maxwell catheter Ascites fluid and right renal hilar varices, likely stigmata of portal hypertension in patient with known history of cirrhosis and portal venous occlusion.
--- NOTE | 2016-05-13 11:27 | General Progress Note ---
Assessment/Plan Status: unchanged, deteriorating Status Narrative long discussion with daughter Assessment/Plan status; Acute renal failure- Etiology??? Possible hepatoRenal possible sepsis lactic acidosis UTI cirrhosis , hepatic encephalopathy, elevated bili end stage liver disease (with coagulopathy, thrombocytopenia, hypoalbuminemia) oliguria anemia of chronic disease hx of elevated CEA and AFP? possible malignancy Plan: Hydrate- Lactulose- IV protonix- Monitor renal parameters- Avoid nephro & Hepato toxic meds poor prognosis- Long discussion with daughter- Suggested comfort care- dialysis will not change the overall coarse of the liver disease and possible underlying malignancy discussed with Dr Segura Subjective ROS Limited/Unobtainable: Yes Allergies: Coded Allergies: No Known Allergies (Unverified , 12/05/12) Objective Last 24 Hour Vital Signs Date Time Temp Pulse Resp B/P Pulse Ox O2 Delivery O2 Flow Rate FiO2 05/13/16 08:00 97.0 71 18 122/59 97 Room Air 05/13/16 04:00 96.8 78 20 114/50 97 Room Air 05/13/16 03:39 72 05/13/16 00:00 76 05/13/16 00:00 96.8 78 20 114/60 97 Room Air 05/12/16 20:40 97.0 79 24 126/68 97 Room Air 05/12/16 20:00 75 05/12/16 16:00 96.9 80 17 116/68 97 Room Air 05/12/16 16:00 80 05/12/16 12:00 96.1 83 19 112/70 98 Room Air 05/12/16 11:54 83 Intake and Output 05/12/16 05/13/16 18:59 06:59 Intake Total 255 ml 600 ml Output Total 50 ml 150 ml Balance 205 ml 450 ml IV Total 255 ml 600 ml Output Urine Total 50 ml 150 ml # Bowel Movements 1 1 Laboratory Tests 05/13/16 04:35: White Blood Count 9.5, Red Blood Count 2.86L, Hemoglobin 8.9L, Hematocrit 28.6L , Mean Corpuscular Volume 100H, Mean Corpuscular Hemoglobin 31.2H, Mean Corpuscular Hemoglobin Concent 31.2L, Red Cell Distribution Width 29.4H, Platelet Count 87L, Mean Platelet Volume 11.2H, Neutrophils (%) (Auto) , Lymphocytes (%) (Auto) , Monocytes (%) (Auto) , Eosinophils (%) (Auto) , Basophils (%) (Auto) , Sodium Level 151H, Potassium Level 2.9L, Chloride Level 114H, Carbon Dioxide Level 13L, Anion Gap 24H, Blood Urea Nitrogen 60H, Creatinine 6.0H, Estimat Glomerular Filtration Rate , Glucose Level 121H, Calcium Level 7.6L, Phosphorus Level 5.7H, Magnesium Level 2.5, Total Bilirubin 25.5H, Direct Bilirubin 17.7H, Aspartate Amino Transf (AST/SGOT) 120H, Alanine Aminotransferase (ALT/SGPT) 28, Alkaline Phosphatase 72, Ammonia 55H, Total Protein 4.9L, Albumin 1.9L, Globulin 3.0, Albumin/Globulin Ratio 0.6L 05/13/16 05:30: Urine Eosinophils None seen Height (Feet): 5 Height (Inches): 6.00 Weight (Pounds): 169 General Appearance: no apparent distress, lethargic, confused EENT: other - NGT Cardiovascular: tachycardia Respiratory/Chest: decreased breath sounds Abdomen: other - Ascitis Objective other PE not changed FERNANDA PÉREZ May 13, 2016 11:27
[2016-05-13 12:00] VITALS: BP 105/51
--- NOTE | 2016-05-13 12:02 | Diagnostic Imaging Report ---
APPROVED REPORT CPT Code: 10162 Present Symptoms Lower Extremity Pain: Bilateral BILATERAL: Imaging reveals a patent deep venous system bilaterally. There is no evidence of thrombus within the femoral, popliteal or tibial segments. The greater saphenous veins are also within normal limits. Doppler indicates normal spontaneous flow within these segments.
[2016-05-13] MEDS ORDERED: Cefepime HCl 500 MG in D5W 55 ML IV SCH (13:00)
[2016-05-13] MEDS ORDERED: Phytonadione 10 MG in D5W 55 ML IVPB ONE (13:00)
[2016-05-13] MEDS: Cefepime HCl 500 MG in D5W 55 ML IV SCH (13:36)
--- NOTE | 2016-05-13 14:42 | Cardiology Report ---
APPROVED REPORT EXAM: Two-dimensional and M-mode echocardiogram with Doppler and color Doppler. INDICATION CAD M-Mode DIMENSIONS IVSd0.9 (0.7-1.1cm)Left Atrium (MM)4.7 (1.6-4.0cm) LVDd4.9 (3.5-5.6cm)Aortic Root3.0 (2.0-3.7cm) PWd0.9 (0.7-1.1cm)Aortic Cusp Exc.1.8 (1.5-2.0cm) LVDs3.2 (2.5-4.0cm) PWs1.3 cm Technically difficult study due to poor acoustic windows. Normal left ventricular chamber size, systolic function and wall motion. Left ventricular ejection fraction estimated to be 60-65 %. Mild left ventricular hypertrophy. Large posterior pleural effusion. Right cardiac chamber sizes are within normal limits. Left atrial enlargement by 2D. Focal aortic valve sclerosis with adequate cusp excursion Thickened mitral valve leaflets with normal excursion. Mitral annulus and aortic root calcification. Pulmonic valve is well visualized. Normal tricuspid valve structure. IVC not obtainable. A color flow and spectral Doppler study was performed and revealed: No aortic regurgitation. Trace mitral regurgitation. Left ventricular diastolic dysfunction grade 1. Moderate tricuspid regurgitation. Tricuspid systolic velocities suggests peak right ventricular systolic pressure of 43 mmHg Consistent with mild pulmonary hypertension.
--- NOTE | 2016-05-13 15:26 | GI Progress Note ---
Assessment/Plan Problems: (1) End stage liver disease ICD Codes: K72.90 - Hepatic failure, unspecified without coma SNOMED: 548394982 (2) Altered mental status (3) Severe anemia ICD Codes: D64.9 - Anemia, unspecified SNOMED: 562113644 (4) Elevated CEA ICD Codes: R97.0 - Elevated carcinoembryonic antigen [CEA] SNOMED: 96064574, 295620858 (5) Hypoalbuminemia ICD Codes: E88.09 - Other disorders of plasma-protein metabolism, not elsewhere classified SNOMED: 476219965 (6) Thrombocytopenia ICD Codes: D69.6 - Thrombocytopenia SNOMED: 152551771 (7) Anemia ICD Codes: D64.9 - Anemia SNOMED: 600520549 (8) Serum ammonia increased ICD Codes: E72.20 - Disorder of urea cycle metabolism, unspecified SNOMED: 3012209 Status: unchanged Status Narrative Discussed with Dr. Churchill. Assessment/Plan s/p EGD 04/04/15 - Gastric AVM elevated iron pt needs to be referred for liver transplant evaluation elevated ammonia >> xifaxan + lactulose fu abdominal paracentsis >> r/o SBP monitor H&H, transfuse prn consider propranolol for GI prophylaxis for EV bleed ppi fu labs The patient was seen and examined at bedside and all new and available data was reviewed in the patients chart. I agree with the above findings, impression and plan. (Patient seen earlier today. Signature stamp does not reflect patient encounter time.). -Kenneth Churchill MD Subjective Subjective limited Objective Last 24 Hour Vital Signs Date Time Temp Pulse Resp B/P Pulse Ox O2 Delivery O2 Flow Rate FiO2 05/13/16 12:00 96.8 67 18 105/51 99 Room Air 05/13/16 08:00 97.0 71 18 122/59 97 Room Air 05/13/16 04:00 96.8 78 20 114/50 97 Room Air 05/13/16 03:39 72 05/13/16 00:00 76 05/13/16 00:00 96.8 78 20 114/60 97 Room Air 05/12/16 20:40 97.0 79 24 126/68 97 Room Air 05/12/16 20:00 75 05/12/16 16:00 96.9 80 17 116/68 97 Room Air 05/12/16 16:00 80 Intake and Output 05/12/16 05/13/16 19:00 07:00 Intake Total 305 ml 550 ml Output Total 50 ml 150 ml Balance 255 ml 400 ml IV Total 305 ml 550 ml Output Urine Total 50 ml 150 ml # Bowel Movements 1 1 Laboratory Tests Test 05/13/16 04:35 05/13/16 05:30 White Blood Count 9.5 K/UL (4.8-10.8) Red Blood Count 2.86 M/UL (4.20-5.40) L Hemoglobin 8.9 G/DL (12.0-16.0) L Hematocrit 28.6 % (37.0-47.0) L Mean Corpuscular Volume 100 FL (80-99) H Mean Corpuscular Hemoglobin 31.2 PG (27.0-31.0) H Mean Corpuscular Hemoglobin Concent 31.2 G/DL (32.0-36.0) L Red Cell Distribution Width 29.4 % (11.6-14.8) H Platelet Count 87 K/UL (150-450) L Mean Platelet Volume 11.2 FL (6.5-10.1) H Neutrophils (%) (Auto) % (45.0-75.0) Lymphocytes (%) (Auto) % (20.0-45.0) Monocytes (%) (Auto) % (1.0-10.0) Eosinophils (%) (Auto) % (0.0-3.0) Basophils (%) (Auto) % (0.0-2.0) Sodium Level 151 mEQ/L (135-145) H Potassium Level 2.9 mEQ/L (3.4-4.9) L Chloride Level 114 mEQ/L (98-107) H Carbon Dioxide Level 13 mEQ/L (20-30) L Anion Gap 24 (5-15) H Blood Urea Nitrogen 60 mg/dL (7-23) H Creatinine 6.0 mg/dL (0.5-0.9) H Estimat Glomerular Filtration Rate mL/min (>60) Glucose Level 121 mg/dL (74-106) H Calcium Level 7.6 mg/dL (8.6-10.2) L Phosphorus Level 5.7 mg/dL (2.5-4.8) H Magnesium Level 2.5 mg/dL (1.7-2.5) Total Bilirubin 25.5 mg/dL (0.0-1.2) H Direct Bilirubin 17.7 mg/dL (0.1-0.3) H Aspartate Amino Transf (AST/SGOT) 120 U/L (5-40) H Alanine Aminotransferase (ALT/SGPT) 28 U/L (3-33) Alkaline Phosphatase 72 U/L (35-104) Ammonia 55 umol/L (11-51) H Total Protein 4.9 g/dL (6.6-8.7) L Albumin 1.9 g/dL (3.5-5.2) L Globulin 3.0 g/dL Albumin/Globulin Ratio 0.6 (1.0-2.7) L Urine Eosinophils None seen Height (Feet): 5 Height (Inches): 6.00 Weight (Pounds): 169 General Appearance: no apparent distress, confused Cardiovascular: normal rate Respiratory/Chest: normal breath sounds, no respiratory distress Abdominal Exam: distended, ascites Objective Date of Service: 04/03/16 Endoscopy Procedure Note Indication for Procedure: gib Procedures Performed: EGD Operative Findings/Diagnosis: Gastric avm KENNETH CHURCHILL - Apr 04, 2016 10:09 Maris Ramirez N.P. May 13, 2016 15:26 KENNETH CHURCHILL May 16, 2016 08:03
[2016-05-13 16:00] VITALS: BP 118/50
--- NOTE | 2016-05-13 16:24 | Pulmonology Progress Note ---
Assessment/Plan Problems: (1) Hepatic encephalopathy (2) End stage liver disease (3) Pancreatic mass (4) Schizoaffective disorder (5) Coagulopathy (6) Elevated CEA Assessment/Plan IV fluids Lactulose check ammonia med/surg social service consult for end of life planning pts daughter had received a presentation from hospice previously. check electrolytes doing better very short life expectancy based on near complete liver shut down Subjective ROS Limited/Unobtainable: Yes Interval Events: open eyes, looks comfortable Allergies: Coded Allergies: No Known Allergies (Unverified , 12/05/12) Objective Last 24 Hour Vital Signs Date Time Temp Pulse Resp B/P Pulse Ox O2 Delivery O2 Flow Rate FiO2 05/13/16 12:00 96.8 67 18 105/51 99 Room Air 05/13/16 08:00 97.0 71 18 122/59 97 Room Air 05/13/16 04:00 96.8 78 20 114/50 97 Room Air 05/13/16 03:39 72 05/13/16 00:00 76 05/13/16 00:00 96.8 78 20 114/60 97 Room Air 05/12/16 20:40 97.0 79 24 126/68 97 Room Air 05/12/16 20:00 75 Intake and Output 05/12/16 05/13/16 19:00 07:00 Intake Total 305 ml 550 ml Output Total 50 ml 150 ml Balance 255 ml 400 ml IV Total 305 ml 550 ml Output Urine Total 50 ml 150 ml # Bowel Movements 1 1 Respiratory/Chest: chest wall non-tender, lungs clear Breasts: no masses Cardiovascular: normal peripheral pulses, normal rate Genitourinary: normal external genitalia Extremities: no cyanosis Skin: no rash Neurologic/Psychiatric: virtual classroom manager II-XII grossly normal, no motor/sensory deficits Microbiology Date/Time Source Procedure Growth Status 05/10/16 19:00 Blood Blood Culture - Preliminary NO GROWTH AFTER 48 HOURS Resulted 05/10/16 18:45 Blood Blood Culture - Preliminary NO GROWTH AFTER 48 HOURS Resulted 05/10/16 20:10 Nasal Nares MRSA Culture - Final NO METHICILLIN RESISTANT STAPH AUREUS... Complete 05/10/16 20:40 Urine,Clean Catch Urine Culture - Final Strep Species, Alpha Hemolytic Complete 05/10/16 20:10 Rectum VRE Culture - Final Enterococcus Faecium - Vre Complete Laboratory Tests 05/13/16 04:35: White Blood Count 9.5, Red Blood Count 2.86L, Hemoglobin 8.9L, Hematocrit 28.6L , Mean Corpuscular Volume 100H, Mean Corpuscular Hemoglobin 31.2H, Mean Corpuscular Hemoglobin Concent 31.2L, Red Cell Distribution Width 29.4H, Platelet Count 87L, Mean Platelet Volume 11.2H, Neutrophils (%) (Auto) , Lymphocytes (%) (Auto) , Monocytes (%) (Auto) , Eosinophils (%) (Auto) , Basophils (%) (Auto) , Sodium Level 151H, Potassium Level 2.9L, Chloride Level 114H, Carbon Dioxide Level 13L, Anion Gap 24H, Blood Urea Nitrogen 60H, Creatinine 6.0H, Estimat Glomerular Filtration Rate , Glucose Level 121H, Calcium Level 7.6L, Phosphorus Level 5.7H, Magnesium Level 2.5, Total Bilirubin 25.5H, Direct Bilirubin 17.7H, Aspartate Amino Transf (AST/SGOT) 120H, Alanine Aminotransferase (ALT/SGPT) 28, Alkaline Phosphatase 72, Ammonia 55H, Total Protein 4.9L, Albumin 1.9L, Globulin 3.0, Albumin/Globulin Ratio 0.6L 05/13/16 05:30: Urine Eosinophils None seen 05/13/16 14:50: Prothrombin Time [Pending], Prothromb Time International Ratio [Pending] Current Medications Medications (Trade) Dose Ordered Sig/Bing Route PRN Reason Start Time Stop Time Status Last Admin Dose Admin Cefepime HCl/ Dextrose (Maxipime/D5W) 55 ml @ 110 mls/hr Q24H IV 05/13/16 13:00 05/20/16 12:59 05/13/16 13:36 Dextrose (D5W 1000ml) 1,000 ml @ 75 mls/hr [id number] IV 05/13/16 12:00 06/12/16 11:59 05/13/16 12:00 Dextrose (Dextrose 50%) STAT PRN IV Hypoglycemia 05/13/16 07:00 06/12/16 06:59 Lactulose (Cephulac) 30 gm EVERY 6 HOURS ORAL 05/13/16 12:00 06/12/16 11:59 05/13/16 11:11 Lorazepam (Ativan 2mg/ml 1ml) 0.5 mg Q4H PRN IV For Anxiety 05/13/16 07:00 05/20/16 06:59 Morphine Sulfate (Morphine Sulfate) 2 mg Q4H PRN IVP PAIN 4-10 05/13/16 07:00 05/20/16 06:59 Ondansetron HCl (Zofran) 4 mg Q6H PRN IVP Nausea & Vomiting 05/13/16 07:00 06/12/16 06:59 Polyethylene Glycol (Miralax) 17 gm HSPRN PRN ORAL Constipation 05/13/16 21:00 06/12/16 20:59 Rifaximin (Xifaxan) 550 mg EVERY 12 HOURS ORAL 05/13/16 09:00 05/20/16 08:59 05/13/16 09:35 Zolpidem Tartrate 5 mg 5 mg HSPRN PRN ORAL Insomnia 05/13/16 21:00 06/12/16 20:59 GENESIS ANDRES May 13, 2016 16:24
[2016-05-13 16:33] LABS: INR 2.1 (0.9-1.1)
[2016-05-13] MEDS ORDERED: Sterile Water Irrig 1000ml IRRIG ONE (16:57)
[2016-05-13] MEDS ORDERED: D5W 275ml ONE (16:57)
[2016-05-13] MEDS ORDERED: NS 275ml ONE (16:57)
[2016-05-13] MEDS ORDERED: Tubing IV Secondary IV ONE (16:57)
[2016-05-13 20:00] VITALS: BP 123/51
[2016-05-13] MEDS ORDERED: Zolpidem 5mg tab ORAL PRN (21:00)
[2016-05-13] MEDS ORDERED: Miralax 17gm pkt ORAL PRN (21:00)
[2016-05-14] VITALS (19 sets, daily range): BP systolic 58–133; BP diastolic 33–79
[2016-05-14] MEDS: Lactulose 20gm/30ml UDC ORAL SCH ×4 (00:15→18:42)
[2016-05-14 04:22] LABS: MEAN CORPUSCULAR HEMOGLOBIN 31.6 PG (27.0-31.0); MEAN CORPUSCULAR HGB CONC 31.1 G/DL (32.0-36.0); MEAN CORPUSCULAR VOLUME 101 FL (80-99); MEAN PLATELET VOLUME 10.7 FL (6.5-10.1); PLATELET COUNT 67 K/UL (150-450); RED BLOOD COUNT 2.84 M/UL (4.20-5.40); RED CELL DISTRIBUTION WIDTH 29.5 % (11.6-14.8); WHITE BLOOD COUNT 10.4 K/UL (4.8-10.8)
[2016-05-14 04:50] LABS: AMMONIA 12 umol/L (11-51)
[2016-05-14 04:52] LABS: ANION GAP 23 (5-15); CALCIUM 7.6 mg/dL (8.6-10.2); CARBON DIOXIDE 14 mEQ/L (20-30); CHLORIDE 114 mEQ/L (98-107); CREATININE 6.3 mg/dL (0.5-0.9); HEMOLYSIS 2; POTASSIUM 2.9 mEQ/L (3.4-4.9); SODIUM 151 mEQ/L (135-145)
[2016-05-14 05:17] LABS: BAND NEUTROPHILS % (MANUAL) 0 % (0-8); BASOPHILS % (MANUAL) 0 % (0-2); EOSINOPHILS % (MANUAL) 1 % (0-3); LYMPHOCYTES % (MANUAL) 9 % (20-45); NEUTROPHILS % (MANUAL) 81 % (45-75); OVALOCYTES 2+; PLATELET ESTIMATE DECREASED; TOTAL CELLS COUNTED 100
[2016-05-14 05:18] LABS: ANISOCYTOSIS 2+; BURR CELLS 1+; CRENATED RBC 1+; PLATELET MORPHOLOGY NORMAL; POIKILOCYTOSIS 2+
[2016-05-14] MEDS: Morphine Sulfate 2mg/ml Inj IVP PRN ×2 (08:36→14:31)
[2016-05-14] MEDS: Rifaximin 550mg tab ORAL SCH ×2 (08:36→21:00)
[2016-05-14 09:08] LABS: HEMATOCRIT 26.4 % (34.0-46.6)
--- NOTE | 2016-05-14 11:46 | GI Progress Note ---
Assessment/Plan Problems: (1) End stage liver disease ICD Codes: K72.90 - Hepatic failure, unspecified without coma SNOMED: 430048034 (2) Altered mental status (3) Severe anemia ICD Codes: D64.9 - Anemia, unspecified SNOMED: 431336700 (4) Elevated CEA ICD Codes: R97.0 - Elevated carcinoembryonic antigen [CEA] SNOMED: 87401156, 010893741 (5) Hypoalbuminemia ICD Codes: E88.09 - Other disorders of plasma-protein metabolism, not elsewhere classified SNOMED: 396023716 (6) Thrombocytopenia ICD Codes: D69.6 - Thrombocytopenia SNOMED: 577535872 (7) Anemia ICD Codes: D64.9 - Anemia SNOMED: 192477999 (8) Serum ammonia increased ICD Codes: E72.20 - Disorder of urea cycle metabolism, unspecified SNOMED: 4735720 Status: unchanged Status Narrative Discussed with Dr. Churchill. Assessment/Plan s/p EGD 04/04/15 - Gastric AVM elevated iron recommend referral for liver transplant evaluation elevated ammonia >> xifaxan + lactulose fu abdominal paracentsis >> r/o SBP monitor H&H, transfuse prn consider propranolol for GI prophylaxis for EV bleed ppi fu labs Subjective Subjective limited Objective Last 24 Hour Vital Signs Date Time Temp Pulse Resp B/P Pulse Ox O2 Delivery O2 Flow Rate FiO2 05/14/16 09:06 98.0 05/14/16 08:00 96.6 70 22 127/55 95 Room Air 05/14/16 04:00 98.0 63 20 111/60 95 Room Air 05/14/16 00:00 98.2 68 22 108/52 96 Room Air 05/13/16 20:00 98.2 63 19 123/51 96 Room Air 05/13/16 16:00 97.7 69 17 118/50 94 05/13/16 12:00 96.8 67 18 105/51 99 Room Air Intake and Output 05/13/16 05/14/16 19:00 07:00 Intake Total 875 ml 1455 ml Output Total 600 ml 150 ml Balance 275 ml 1305 ml Intake Oral 240 ml Free Water 60 ml IV Total 725 ml 825 ml Tube Feeding 150 ml 330 ml Output Urine Total 600 ml 150 ml # Bowel Movements 1 2 Laboratory Tests Test 05/13/16 14:50 05/14/16 03:30 05/14/16 04:00 Prothrombin Time 22.0 SEC (9.30-11.50) H Prothromb Time International Ratio 2.1 (0.9-1.1) H White Blood Count 10.4 K/UL (4.8-10.8) Red Blood Count 2.84 M/UL (4.20-5.40) L Hemoglobin 9.0 G/DL (12.0-16.0) L Hematocrit 28.8 % (37.0-47.0) L Mean Corpuscular Volume 101 FL (80-99) H Mean Corpuscular Hemoglobin 31.6 PG (27.0-31.0) H Mean Corpuscular Hemoglobin Concent 31.1 G/DL (32.0-36.0) L Red Cell Distribution Width 29.5 % (11.6-14.8) H Platelet Count 67 K/UL (150-450) L Mean Platelet Volume 10.7 FL (6.5-10.1) H Neutrophils (%) (Auto) % (45.0-75.0) Lymphocytes (%) (Auto) % (20.0-45.0) Monocytes (%) (Auto) % (1.0-10.0) Eosinophils (%) (Auto) % (0.0-3.0) Basophils (%) (Auto) % (0.0-2.0) Differential Total Cells Counted 100 Neutrophils % (Manual) 81 % (45-75) H Lymphocytes % (Manual) 9 % (20-45) L Monocytes % (Manual) 9 % (1-10) Eosinophils % (Manual) 1 % (0-3) Basophils % (Manual) 0 % (0-2) Band Neutrophils 0 % (0-8) Platelet Estimate Decreased L Platelet Morphology Normal Poikilocytosis 2+ Anisocytosis 2+ Ovalocytes 2+ Karlos Cells 1+ Crenated Cell 1+ Sodium Level 151 mEQ/L (135-145) H Potassium Level 2.9 mEQ/L (3.4-4.9) L Chloride Level 114 mEQ/L (98-107) H Carbon Dioxide Level 14 mEQ/L (20-30) L Anion Gap 23 (5-15) H Blood Urea Nitrogen 63 mg/dL (7-23) H Creatinine 6.3 mg/dL (0.5-0.9) H Estimat Glomerular Filtration Rate mL/min (>60) Glucose Level 186 mg/dL (74-106) H Calcium Level 7.6 mg/dL (8.6-10.2) L Phosphorus Level 5.5 mg/dL (2.5-4.8) H Ammonia 12 umol/L (11-51) Urine Eosinophils None seen Height (Feet): 5 Height (Inches): 6.00 Weight (Pounds): 169 General Appearance: no apparent distress, confused Cardiovascular: normal rate Respiratory/Chest: no respiratory distress Abdominal Exam: normal bowel sounds, non tender, soft, ascites Objective Date of Service: 04/03/16 Endoscopy Procedure Note Indication for Procedure: gib Procedures Performed: EGD Operative Findings/Diagnosis: Gastric avm MICHAELA CHURCHILL - Apr 04, 2016 10:09 Maris Ramirez N.P. May 14, 2016 11:46
[2016-05-14] MEDS ORDERED: Potassium Chloride 40 MEQ in D5W 500ml 500 ML IV ONE (12:00)
[2016-05-14] MEDS: Cefepime HCl 500 MG in D5W 55 ML IV SCH (13:39)
--- NOTE | 2016-05-14 15:00 | Diagnostic Imaging Report ---
Indication: Abdominal pain Comparison: None Single view of the abdomen obtained There is relative absence of bowel gas. NG tube tip is above the EG junction. Bones are unremarkable. Impression: Endotracheal tube is in the distal esophagus. This should be removed or advanced into the stomach. Relative absence of bowel gas limiting evaluation.
--- NOTE | 2016-05-14 20:25 | Emergency Room Report ---
Physical Exam Called for code blue. Patient with respiratory distress and then stopped breathing according to RN. Admitted for ALOC and sepsis. Last 24 Hour Vital Signs Date Time Temp Pulse Resp B/P Pulse Ox O2 Delivery O2 Flow Rate FiO2 05/15/16 00:55 131 18 50 05/15/16 00:33 58/35 05/14/16 23:00 50 05/14/16 23:00 120 16 76/36 100 Mechanical Ventilator 100 05/14/16 22:55 119 19 50 05/14/16 22:45 120 16 66/35 100 Mechanical Ventilator 100 05/14/16 22:30 118 16 67/38 100 Mechanical Ventilator 100 05/14/16 22:15 119 16 60/33 100 Mechanical Ventilator 100 05/14/16 22:00 117 16 66/35 100 Mechanical Ventilator 100 05/14/16 21:45 121 16 70/34 100 Mechanical Ventilator 100 05/14/16 21:30 122 16 66/41 100 Mechanical Ventilator 100 05/14/16 21:15 121 17 69/43 100 Mechanical Ventilator 100 05/14/16 21:00 122 26 75/45 100 Mechanical Ventilator 100 05/14/16 20:45 100 05/14/16 20:41 118 18 133/79 98 Mechanical Ventilator 100 05/14/16 20:33 128 19 100 05/14/16 20:30 125 26 133/69 100 Mechanical Ventilator 100 05/14/16 15:56 97.9 66 18 99/58 97 Room Air 05/14/16 15:01 96.8 05/14/16 12:00 96.8 68 18 128/60 93 Room Air 05/14/16 08:00 96.6 70 22 127/55 95 Room Air 05/14/16 04:00 98.0 63 20 111/60 95 Room Air Sp02 EP Interpretation: reviewed, abnormal General Appearance: other - comatose and unresponsive, Chronically Ill Head: normocephalic, atraumatic Eyes: bilateral eye conjunctivae pale ENT: moist mucus membranes, other - copious secretions with intubation (bilious ) Neck: other - flaccid Respiratory: rhonchi - post intibation Cardiovascular #1: other - no pulses or heart sounds Gastrointestinal: distended Genitourinary: normal inspection Musculoskeletal: other - flaccid Neurologic: other - unresponsive Psychiatric: other - unresponsive Skin: mottled CPR/Code Blue CPR/Code Blue Narrative Code called at 20:09. CPR supervised and performed by me. Patient with resp arrest. Intubated with evidence of aspiration. Asystole. EPI V fib - shock 200 W/S organized rhythm - melissa.Epi repeated Pulses 20:18. Variable rate with some sinus pauses. Atropine. Epi repeated. Pulses persisted. Intubation Intubation : Consent: Emergent Intubation Method: orotracheal Tube Size (cm): 7.0 Medications: Other - none Intubation Complications: no complications Post Intubation Xray: Yes Attempts: One Patient Tolerated: Well Complications: None Progress evidence of aspiration Medical Decision Making Diagnostic Impression: Primary Impression: Altered level of consciousness Additional Impressions: Anemia Severe sepsis Hepatic encephalopathy Respiratory arrest Aspiration pneumonia Qualified Codes: J69.0 - Pneumonitis due to inhalation of food and vomit ER Course Patient with respiratory arrest. See Code Blue notes. After resuscitation - CXR, EKG, labs ordered. Prognosis dismal. Chest X-Ray Diagnostic Results EP Interpretation: Yes Findings: no effusion, no pneumothorax, other - ET low, RML infiltrate Number of Views: 1 Status: worsened Disposition: ADMITTED INPATIENT Condition: Serious Referrals: GENESIS ANDRES (PCP) Jarrett Bill M.D. May 14, 2016 20:25
[2016-05-14 21:22] LABS: ALANINE AMINOTRANSFERASE 42 U/L (3-33); ALBUMIN/GLOBULIN RATIO 0.7 (1.0-2.7); ASPARTATE AMINO TRANSFERASE 223 U/L (5-40); CHLORIDE 108 mEQ/L (98-107); CREATININE 6.4 mg/dL (0.5-0.9); HEMOLYSIS 12; POTASSIUM 3.6 mEQ/L (3.4-4.9); SODIUM 147 mEQ/L (135-145); TOTAL PROTEIN 5.3 g/dL (6.6-8.7)
[2016-05-14 21:23] LABS: MEAN CORPUSCULAR HGB CONC 28.9 G/DL (32.0-36.0); MEAN CORPUSCULAR VOLUME 107 FL (80-99); MEAN PLATELET VOLUME 11.8 FL (6.5-10.1); PLATELET COUNT 83 K/UL (150-450); RED CELL DISTRIBUTION WIDTH 29.2 % (11.6-14.8)
[2016-05-14 21:27] LABS: ANION GAP 30 (5-15)
[2016-05-14 21:34] LABS: INR 2.2 (0.9-1.1)
[2016-05-14 21:43] LABS: CARBON DIOXIDE 9 mEQ/L (20-30)
--- NOTE | 2016-05-14 21:49 | Pulmonolgy Critical Care Note ---
Critical Care - Asmt/Plan Problems: (1) Respiratory arrest (2) Severe sepsis (3) Hepatic encephalopathy (4) Aspiration pneumonia (5) End stage liver disease Respiratory: monitor respiratory rate, adjust FIO2, CXR, ABG Cardiac: continue to monitor HR/BP Renal: F/U I&O, keep IV fluid, check electrolytes Infectious Disease: check cultures, continue antibiotics Gastrointestinal: hold feedings Endocrine: monitor blood sugar, check HgA1C, continue sliding scale insulin Hematologic: monitor H/H, transfuse if hgb<8.5 Neurologic: PRN Ativan, PRN Morphine, keep patient comfortable Affect: PRN ativan Prophylaxis: Protonix Time Spent (Minutes): 30 Notes Reviewed: cardio Discussed with: nurses, consultants, rn case 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 [employer] - Objective Last 24 Hour Vital Signs Date Time Temp Pulse Resp B/P Pulse Ox O2 Delivery O2 Flow Rate FiO2 05/14/16 20:41 118 18 133/79 98 Mechanical Ventilator 100 05/14/16 20:33 128 19 100 05/14/16 15:56 97.9 66 18 99/58 97 Room Air 05/14/16 15:01 96.8 05/14/16 12:00 96.8 68 18 128/60 93 Room Air 05/14/16 08:00 96.6 70 22 127/55 95 Room Air 05/14/16 04:00 98.0 63 20 111/60 95 Room Air 05/14/16 00:00 98.2 68 22 108/52 96 Room Air Status: sedated Condition: critical HEENT: atraumatic Neck: full ROM Heart: HR/BP stable, HR/BP unstable Abdomen: soft, non-tender Extremities: edema Accucheck: 177 Critical Care - Subjective ROS Limited/Unobtainable: Yes ICU Day: 1 Intubation Day: 1 Interval Events: code blue was called for respiratory failure, pt was intubated and transferred to ICU FI02: 100 Vent Support Breath Rate: 16 Vent Support Mode: AC Vent Tidal Volume: 550 Sputum Amount: Large PEEP: 5.0 PIP: 34 Tube Feeding Amount: 30 I&O: Intake and Output 05/13/16 05/14/16 19:00 07:00 Intake Total 875 ml 1455 ml Output Total 600 ml 150 ml Balance 275 ml 1305 ml Intake Oral 240 ml Free Water 60 ml IV Total 725 ml 825 ml Tube Feeding 150 ml 330 ml Output Urine Total 600 ml 150 ml # Bowel Movements 1 2 CXR: Et in good position ET-Tube: 7.0 ET Position: 23 Labs: Laboratory Tests Test 05/14/16 20:50 05/14/16 21:40 05/15/16 05:00 05/15/16 07:40 White Blood Count 21.0 K/UL (4.8-10.8) #H 14.4 K/UL (4.8-10.8) H Red Blood Count 3.00 M/UL (4.20-5.40) L 3.03 M/UL (4.20-5.40) L Hemoglobin 9.3 G/DL (12.0-16.0) L 9.6 G/DL (12.0-16.0) L Hematocrit 32.1 % (37.0-47.0) L 31.9 % (37.0-47.0) L Mean Corpuscular Volume 107 FL (80-99) H 105 FL (80-99) H Mean Corpuscular Hemoglobin 31.0 PG (27.0-31.0) 31.5 PG (27.0-31.0) H Mean Corpuscular Hemoglobin Concent 28.9 G/DL (32.0-36.0) L 30.0 G/DL (32.0-36.0) L Red Cell Distribution Width 29.2 % (11.6-14.8) H 30.2 % (11.6-14.8) H Platelet Count 83 K/UL (150-450) L 74 K/UL (150-450) L Mean Platelet Volume 11.8 FL (6.5-10.1) H 14.0 FL (6.5-10.1) H Neutrophils (%) (Auto) % (45.0-75.0) % (45.0-75.0) Lymphocytes (%) (Auto) % (20.0-45.0) % (20.0-45.0) Monocytes (%) (Auto) % (1.0-10.0) % (1.0-10.0) Eosinophils (%) (Auto) % (0.0-3.0) % (0.0-3.0) Basophils (%) (Auto) % (0.0-2.0) % (0.0-2.0) Differential Total Cells Counted 100 100 Neutrophils % (Manual) 86 % (45-75) H 77 % (45-75) H Lymphocytes % (Manual) 7 % (20-45) L 4 % (20-45) L Monocytes % (Manual) 4 % (1-10) 6 % (1-10) Eosinophils % (Manual) 1 % (0-3) 0 % (0-3) Basophils % (Manual) 1 % (0-2) 0 % (0-2) Band Neutrophils 1 % (0-8) 11 % (0-8) H Nucleated Red Blood Cells 10 /100 WBC 9 /100 WBC Platelet Estimate Decreased L Decreased L Platelet Morphology Normal Normal Polychromasia 1+ 1+ Hypochromasia 2+ 1+ Poikilocytosis 2+ Anisocytosis 2+ 2+ Macrocytosis 1+ 1+ [place] Cells 1+ 1+ Prothrombin Time 23.0 SEC (9.30-11.50) H 25.3 SEC (9.30-11.50) H Prothromb Time International Ratio 2.2 (0.9-1.1) H 2.4 (0.9-1.1) H Activated Partial Thromboplast Time 103 SEC (23-33) H 93 SEC (23-33) H Sodium Level 147 mEQ/L (135-145) H 147 mEQ/L (135-145) H Potassium Level 3.6 mEQ/L (3.4-4.9) 3.4 mEQ/L (3.4-4.9) Chloride Level 108 mEQ/L (98-107) H 109 mEQ/L (98-107) H Carbon Dioxide Level 9 mEQ/L (20-30) *L 8 mEQ/L (20-30) *L Anion Gap 30 (5-15) H 30 (5-15) H Blood Urea Nitrogen 63 mg/dL (7-23) H 61 mg/dL (7-23) H Creatinine 6.4 mg/dL (0.5-0.9) H 6.3 mg/dL (0.5-0.9) H Estimat Glomerular Filtration Rate mL/min (>60) mL/min (>60) Glucose Level 180 mg/dL (74-106) H 192 mg/dL (74-106) H Calcium Level 8.0 mg/dL (8.6-10.2) L 7.5 mg/dL (8.6-10.2) L Total Bilirubin 26.2 mg/dL (0.0-1.2) H 24.6 mg/dL (0.0-1.2) H Direct Bilirubin 17.0 mg/dL (0.1-0.3) H 15.4 mg/dL (0.1-0.3) H Aspartate Amino Transf (AST/SGOT) 223 U/L (5-40) H 436 U/L (5-40) H Alanine Aminotransferase (ALT/SGPT) 42 U/L (3-33) H 56 U/L (3-33) H Alkaline Phosphatase 107 U/L (35-104) H 99 U/L (35-104) Creatine Kinase MB 4.4 ng/mL (< 3.8) H Troponin I < 0.30 ng/mL (<=0.30) Total Protein 5.3 g/dL (6.6-8.7) L 4.7 g/dL (6.6-8.7) L Albumin 2.2 g/dL (3.5-5.2) L 1.8 g/dL (3.5-5.2) L Globulin 3.1 g/dL 2.9 g/dL Albumin/Globulin Ratio 0.7 (1.0-2.7) L 0.6 (1.0-2.7) L Arterial Blood pH 6.971 (7.350-7.450) 7.020 (7.350-7.450) Arterial Blood Partial Pressure CO2 35.3 mmHg (35.0-45.0) 31.6 mmHg (35.0-45.0) L Arterial Blood Partial Pressure O2 397.3 mmHg (75.0-100.0) H 117.5 mmHg (75.0-100.0) H Arterial Blood HCO3 8.0 mmol/L (22.0-26.0) L 8.1 mmol/L (22.0-26.0) L Arterial Blood Oxygen Saturation 99.7 % (92.0-98.0) H 95.8 % (92.0-98.0) Arterial Blood Base Excess -22.5 -21.4 Todd Test Positive Positive Myelocytes % 2 % (0-0) H Phosphorus Level 7.1 mg/dL (2.5-4.8) H Magnesium Level 2.4 mg/dL (1.7-2.5) Ammonia 55 umol/L (11-51) H GENESIS ANDRES May 14, 2016 21:49
[2016-05-14 21:50] LABS: ABG BASE EXCESS -22.5; ABG PCO2 35.3 mmHg (35.0-45.0)
[2016-05-14 21:51] LABS: ABG ALLEN TEST POSITIVE
[2016-05-14 21:57] LABS: TROPONIN I < 0.30 ng/mL (<=0.30)
[2016-05-14] MEDS ORDERED: Morphine Sulfate 4mg/ml Inj IVP PRN (22:00)
[2016-05-14] MEDS ORDERED: LORazepam Inj 2mg/ml 1ml IV PRN ×2 (22:00→23:00)
[2016-05-14 22:21] LABS: BAND NEUTROPHILS % (MANUAL) 1 % (0-8); BASOPHILS % (MANUAL) 1 % (0-2); EOSINOPHILS % (MANUAL) 1 % (0-3); LYMPHOCYTES % (MANUAL) 7 % (20-45); NEUTROPHILS % (MANUAL) 86 % (45-75); NUCLEATED RED BLOOD CELLS 10 /100 WBC; TOTAL CELLS COUNTED 100
[2016-05-14 22:22] LABS: ANISOCYTOSIS 2+; PLATELET ESTIMATE DECREASED; PLATELET MORPHOLOGY NORMAL
[2016-05-14 22:23] LABS: HYPOCHROMASIA 2+; MACROCYTES 1+; POIKILOCYTOSIS 2+
[2016-05-14 22:24] LABS: BURR CELLS 1+; POLYCHROMASIA 1+
[2016-05-14] MEDS ORDERED: Morphine Sulfate 2mg/ml Inj IVP PRN (23:00)
[2016-05-15] VITALS (83 sets, daily range): BP systolic 52–101; BP diastolic 19–69
[2016-05-15] MEDS ORDERED: Levophed 4mg/4mL Inj IV ONE ×2 (00:28→05:46)
[2016-05-15] MEDS ORDERED: LORazepam Inj 2mg/ml 1ml IV PRN (02:00)
[2016-05-15] MEDS ORDERED: Morphine Sulfate 4mg/ml Inj IVP PRN (02:00)
--- NOTE | 2016-05-15 04:10 | Emergency Room Report ---
History of Present Illness General Chief Complaint: Altered Level of Consciousness Source: Medical Record Present Illness Allergies: Coded Allergies: No Known Allergies (Unverified , 12/05/12) Nursing Documentation-[facility] Past Medical History Deferred: Patient Unconscious Hx Cardiac Problems: Yes - heart failure Hx Hypertension: Yes Hx Diabetes: Yes Hx Cancer: No Hx Gastrointestinal Problems: Yes Hx Dialysis: Yes - ESRD History Of Psychiatric Problem: Yes - Schizoaffective D/O, Altered mental status Hx Neurological Problems: Yes Hx Dementia: Yes Physical Exam Vital Signs Date Time Temp Pulse Resp B/P Pulse Ox O2 Delivery O2 Flow Rate FiO2 05/10/16 18:40 97.9 84 16 117/58 97 Room Air 05/14/16 20:30 100 Procedures Central Line Central Line : Consent: Verbal Central Line Lumen: triple Maximal Sterile Barrier Tech: yes cap, yes mask, yes sterile gown, yes sterile gloves, yes large sterile sheet, yes hand hygiene, yes chlorhexidine prep Complications: none Central Line Post Position: sutured, good blood return Attempts: One Patient Tolerated: Well Complications: None Medical Decision Making Diagnostic Impression: Primary Impression: Altered level of consciousness Additional Impressions: Respiratory arrest Anemia Aspiration pneumonia Qualified Codes: J69.0 - Pneumonitis due to inhalation of food and vomit Severe sepsis Hepatic encephalopathy ER Course I was called to the ICU for central line. Patient was admitted to ICU for respiratory failure was recently intubated. She became hypotensive was on Levaquin. She needed a central line. I explained this to her daughter and she gave verbal consent. Central line was done under sterile condition using sudden to technique. No complication. Please see my procedure dictation for more info. Last Vital Signs Date Time Temp Pulse Resp B/P Pulse Ox O2 Delivery O2 Flow Rate FiO2 05/15/16 03:53 62/36 05/15/16 03:26 135 18 50 05/14/16 23:00 100 Mechanical Ventilator 05/14/16 15:56 97.9 Disposition: ADMITTED INPATIENT Condition: Serious Referrals: GENESIS ANDRES (PCP) PHOENIX WALKER M.D. May 15, 2016 04:10
[2016-05-15] MEDS: Lactulose 20gm/30ml UDC ORAL SCH ×4 (06:00→18:24)
[2016-05-15 06:21] LABS: MEAN CORPUSCULAR HEMOGLOBIN 31.5 PG (27.0-31.0); MEAN CORPUSCULAR VOLUME 105 FL (80-99); PLATELET COUNT 74 K/UL (150-450); RED BLOOD COUNT 3.03 M/UL (4.20-5.40); RED CELL DISTRIBUTION WIDTH 30.2 % (11.6-14.8); WHITE BLOOD COUNT 14.4 K/UL (4.8-10.8)
[2016-05-15 06:44] LABS: INR 2.4 (0.9-1.1); PROTHROMBIN TIME 25.3 SEC (9.30-11.50)
[2016-05-15 06:46] LABS: ALANINE AMINOTRANSFERASE 56 U/L (3-33); ALBUMIN/GLOBULIN RATIO 0.6 (1.0-2.7); ASPARTATE AMINO TRANSFERASE 436 U/L (5-40); CALCIUM 7.5 mg/dL (8.6-10.2); CHLORIDE 109 mEQ/L (98-107); CREATININE 6.3 mg/dL (0.5-0.9); HEMOLYSIS 3; POTASSIUM 3.4 mEQ/L (3.4-4.9); SODIUM 147 mEQ/L (135-145); TOTAL PROTEIN 4.7 g/dL (6.6-8.7)
[2016-05-15 06:56] LABS: ANION GAP 30 (5-15)
[2016-05-15 07:04] LABS: MAGNESIUM 2.4 mg/dL (1.7-2.5); PHOSPHORUS 7.1 mg/dL (2.5-4.8)
[2016-05-15 07:15] LABS: CARBON DIOXIDE 8 mEQ/L (20-30)
[2016-05-15 07:19] LABS: AMMONIA 55 umol/L (11-51)
[2016-05-15 07:54] LABS: ABG ALLEN TEST POSITIVE; ABG BASE EXCESS -21.4; ABG PCO2 31.6 mmHg (35.0-45.0)
[2016-05-15] MEDS ORDERED: Morphine Sulfate 2mg/ml Inj IVP PRN (08:27)
[2016-05-15] MEDS: Rifaximin 550mg tab ORAL SCH ×2 (08:52→22:07)
[2016-05-15] MEDS: Pantoprazole Inj IV SCH (08:53)
[2016-05-15] MEDS ORDERED: Pantoprazole Inj IV SCH (09:00)
[2016-05-15 09:25] LABS: ANISOCYTOSIS 2+; BAND NEUTROPHILS % (MANUAL) 11 % (0-8); BASOPHILS % (MANUAL) 0 % (0-2); EOSINOPHILS % (MANUAL) 0 % (0-3); HYPOCHROMASIA 1+; LYMPHOCYTES % (MANUAL) 4 % (20-45); MACROCYTES 1+; MYELOCYTES % 2 % (0-0); NEUTROPHILS % (MANUAL) 77 % (45-75); NUCLEATED RED BLOOD CELLS 9 /100 WBC; PLATELET ESTIMATE DECREASED; PLATELET MORPHOLOGY NORMAL; TOTAL CELLS COUNTED 100
[2016-05-15 09:26] LABS: BURR CELLS 1+; POLYCHROMASIA 1+
[2016-05-15 10:17] LABS: BILIRUBIN,DIRECT 15.4 mg/dL (0.1-0.3)
--- NOTE | 2016-05-15 10:37 | Diagnostic Imaging Report ---
Indication: NGT STATUS post nasogastric tube replacement Technique: Supine new of the abdomen Comparison: 3 hours earlier Findings: Interim advancement of previously demonstrated malposition nasogastric tube, tip now projecting at the level of the gastric body. Paucity of bowel gas is again demonstrated Impression: Improved and now satisfactory position of nasogastric tube This agrees with the preliminary interpretation provided overnight by Dr. Mendoza
--- NOTE | 2016-05-15 11:34 | Pulmonolgy Critical Care Note ---
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: 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, 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 Discussed with: nurses, consultants, upper caseradministrative office manager - Objective Last 24 Hour Vital Signs Date Time Temp Pulse Resp B/P Pulse Ox O2 Delivery O2 Flow Rate FiO2 05/15/16 11:23 78/35 05/15/16 10:42 122 23 50 05/15/16 10:30 122 16 91/39 100 Mechanical Ventilator 50 05/15/16 10:00 119 17 90/41 100 Mechanical Ventilator 50 05/15/16 09:30 118 16 87/42 100 Mechanical Ventilator 50 05/15/16 09:02 121 21 50 05/15/16 09:00 124 16 74/36 100 Mechanical Ventilator 50 05/15/16 08:39 57/31 05/15/16 08:30 125 16 69/52 100 Mechanical Ventilator 50 05/15/16 08:15 127 16 78/51 100 Mechanical Ventilator 50 05/15/16 08:00 97.4 129 17 81/52 100 Mechanical Ventilator 50 05/15/16 08:00 50 05/15/16 08:00 128 05/15/16 07:45 130 16 79/48 100 Mechanical Ventilator 50 05/15/16 07:30 131 17 82/46 100 Mechanical Ventilator 50 05/15/16 07:15 132 16 85/47 100 Mechanical Ventilator 50 05/15/16 07:13 128 19 50 05/15/16 07:00 125 17 72/51 100 Mechanical Ventilator 50 05/15/16 06:45 129 17 80/44 98 Mechanical Ventilator 50 05/15/16 06:30 128 18 78/42 99 Mechanical Ventilator 50 05/15/16 06:15 126 18 52/42 99 Mechanical Ventilator 50 05/15/16 06:13 85/47 05/15/16 06:00 132 18 85/47 99 Mechanical Ventilator 50 05/15/16 06:00 85/47 05/15/16 05:45 132 18 75/43 99 Mechanical Ventilator 50 05/15/16 05:30 131 19 76/48 99 Mechanical Ventilator 50 05/15/16 05:15 131 20 84/46 98 Mechanical Ventilator 50 05/15/16 05:00 133 19 90/49 99 Mechanical Ventilator 50 05/15/16 05:00 90/49 05/15/16 04:55 133 20 50 05/15/16 04:45 133 19 85/51 99 Mechanical Ventilator 50 05/15/16 04:30 133 18 87/47 99 Mechanical Ventilator 50 05/15/16 04:15 133 17 97/48 99 Mechanical Ventilator 50 05/15/16 04:00 129 05/15/16 04:00 50 05/15/16 04:00 94.3 129 18 94/50 99 Mechanical Ventilator 50 05/15/16 03:53 62/36 05/15/16 03:45 131 15 62/36 98 Mechanical Ventilator 50.0 05/15/16 03:30 135 17 88/69 98 Mechanical Ventilator 50.0 05/15/16 03:26 135 18 50 05/15/16 03:15 135 19 91/54 98 Mechanical Ventilator 50.0 05/15/16 03:00 137 18 89/53 98 Mechanical Ventilator 50.0 05/15/16 03:00 89/53 05/15/16 02:45 137 18 86/56 98 Mechanical Ventilator 50.0 05/15/16 02:30 137 18 88/36 98 Mechanical Ventilator 50.0 05/15/16 02:15 138 17 92/65 98 Mechanical Ventilator 50.0 05/15/16 02:00 138 18 90/39 98 Mechanical Ventilator 50.0 05/15/16 02:00 90/59 05/15/16 01:45 139 18 101/35 98 Mechanical Ventilator 50.0 05/15/16 01:30 139 17 88/37 98 Mechanical Ventilator 50.0 05/15/16 01:15 138 16 88/34 98 Mechanical Ventilator 50.0 05/15/16 01:00 136 17 91/55 99 Mechanical Ventilator 50.0 05/15/16 01:00 91/55 05/15/16 00:55 131 18 50 05/15/16 00:45 134 17 96/61 99 Mechanical Ventilator 50.0 05/15/16 00:33 58/35 05/15/16 00:30 94.3 126 17 83/35 99 Mechanical Ventilator 50.0 05/15/16 00:15 115 18 55/30 96 Mechanical Ventilator 50.0 05/15/16 00:00 115 05/15/16 00:00 115 17 58/35 98 Mechanical Ventilator 50.0 05/14/16 23:45 116 16 58/39 97 Mechanical Ventilator 100.0 05/14/16 23:30 120 15 64/43 98 Mechanical Ventilator 100.0 05/14/16 23:15 121 15 74/39 98 Mechanical Ventilator 100.0 05/14/16 23:00 50 05/14/16 23:00 120 16 76/36 100 Mechanical Ventilator 100 05/14/16 22:55 119 19 50 05/14/16 22:45 120 16 66/35 100 Mechanical Ventilator 100 05/14/16 22:30 118 16 67/38 100 Mechanical Ventilator 100 05/14/16 22:15 119 16 60/33 100 Mechanical Ventilator 100 05/14/16 22:00 117 16 66/35 100 Mechanical Ventilator 100 05/14/16 21:45 121 16 70/34 100 Mechanical Ventilator 100 05/14/16 21:30 122 16 66/41 100 Mechanical Ventilator 100 05/14/16 21:15 121 17 69/43 100 Mechanical Ventilator 100 05/14/16 21:00 122 26 75/45 100 Mechanical Ventilator 100 05/14/16 20:45 100 05/14/16 20:41 118 18 133/79 98 Mechanical Ventilator 100 05/14/16 20:33 128 19 100 05/14/16 20:30 125 26 133/69 100 Mechanical Ventilator 100 05/14/16 15:56 97.9 66 18 99/58 97 Room Air 05/14/16 15:01 96.8 05/14/16 12:00 96.8 68 18 128/60 93 Room Air Status: sedated Condition: grave HEENT: atraumatic, normocephalic Neck: full ROM Lungs: clear Heart: HR/BP stable, HR/BP unstable Abdomen: soft, non-tender, active bowel sounds Extremities: no C/C/E, edema Decubiti: location Accucheck: 169 Critical Care - Subjective ROS Limited/Unobtainable: No ICU Day: 2 Intubation Day: 2 Condition: critical EKG Rhythm: Sinus Rhythm FI02: 50 Vent Support Breath Rate: 20 Vent Support Mode: AC Vent Tidal Volume: 550 Sputum Amount: Small PEEP: 5.0 PIP: 39 Tube Feeding Amount: 30 I&O: Intake and Output 05/14/16 05/15/16 19:00 07:00 Intake Total 955 ml 1990.0 ml Output Total 40 ml 200 ml Balance 915 ml 1790.0 ml IV Total 895 ml 1990.0 ml Tube Feeding 60 ml Output Urine Total 40 ml 0 ml Gastric Drainage Total 200 ml CXR: ET in good position ET-Tube: 7.0 ET Position: 22 Labs: Laboratory Tests Test 05/14/16 20:50 05/14/16 21:40 05/15/16 05:00 05/15/16 07:40 White Blood Count 21.0 K/UL (4.8-10.8) #H 14.4 K/UL (4.8-10.8) H Red Blood Count 3.00 M/UL (4.20-5.40) L 3.03 M/UL (4.20-5.40) L Hemoglobin 9.3 G/DL (12.0-16.0) L 9.6 G/DL (12.0-16.0) L Hematocrit 32.1 % (37.0-47.0) L 31.9 % (37.0-47.0) L Mean Corpuscular Volume 107 FL (80-99) H 105 FL (80-99) H Mean Corpuscular Hemoglobin 31.0 PG (27.0-31.0) 31.5 PG (27.0-31.0) H Mean Corpuscular Hemoglobin Concent 28.9 G/DL (32.0-36.0) L 30.0 G/DL (32.0-36.0) L Red Cell Distribution Width 29.2 % (11.6-14.8) H 30.2 % (11.6-14.8) H Platelet Count 83 K/UL (150-450) L 74 K/UL (150-450) L Mean Platelet Volume 11.8 FL (6.5-10.1) H 14.0 FL (6.5-10.1) H Neutrophils (%) (Auto) % (45.0-75.0) % (45.0-75.0) Lymphocytes (%) (Auto) % (20.0-45.0) % (20.0-45.0) Monocytes (%) (Auto) % (1.0-10.0) % (1.0-10.0) Eosinophils (%) (Auto) % (0.0-3.0) % (0.0-3.0) Basophils (%) (Auto) % (0.0-2.0) % (0.0-2.0) Differential Total Cells Counted 100 100 Neutrophils % (Manual) 86 % (45-75) H 77 % (45-75) H Lymphocytes % (Manual) 7 % (20-45) L 4 % (20-45) L Monocytes % (Manual) 4 % (1-10) 6 % (1-10) Eosinophils % (Manual) 1 % (0-3) 0 % (0-3) Basophils % (Manual) 1 % (0-2) 0 % (0-2) Band Neutrophils 1 % (0-8) 11 % (0-8) H Nucleated Red Blood Cells 10 /100 WBC 9 /100 WBC Platelet Estimate Decreased L Decreased L Platelet Morphology Normal Normal Polychromasia 1+ 1+ Hypochromasia 2+ 1+ Poikilocytosis 2+ Anisocytosis 2+ 2+ Macrocytosis 1+ 1+ [place] Cells 1+ 1+ Prothrombin Time 23.0 SEC (9.30-11.50) H 25.3 SEC (9.30-11.50) H Prothromb Time International Ratio 2.2 (0.9-1.1) H 2.4 (0.9-1.1) H Activated Partial Thromboplast Time 103 SEC (23-33) H 93 SEC (23-33) H Sodium Level 147 mEQ/L (135-145) H 147 mEQ/L (135-145) H Potassium Level 3.6 mEQ/L (3.4-4.9) 3.4 mEQ/L (3.4-4.9) Chloride Level 108 mEQ/L (98-107) H 109 mEQ/L (98-107) H Carbon Dioxide Level 9 mEQ/L (20-30) *L 8 mEQ/L (20-30) *L Anion Gap 30 (5-15) H 30 (5-15) H Blood Urea Nitrogen 63 mg/dL (7-23) H 61 mg/dL (7-23) H Creatinine 6.4 mg/dL (0.5-0.9) H 6.3 mg/dL (0.5-0.9) H Estimat Glomerular Filtration Rate mL/min (>60) mL/min (>60) Glucose Level 180 mg/dL (74-106) H 192 mg/dL (74-106) H Calcium Level 8.0 mg/dL (8.6-10.2) L 7.5 mg/dL (8.6-10.2) L Total Bilirubin 26.2 mg/dL (0.0-1.2) H 24.6 mg/dL (0.0-1.2) H Direct Bilirubin 17.0 mg/dL (0.1-0.3) H 15.4 mg/dL (0.1-0.3) H Aspartate Amino Transf (AST/SGOT) 223 U/L (5-40) H 436 U/L (5-40) H Alanine Aminotransferase (ALT/SGPT) 42 U/L (3-33) H 56 U/L (3-33) H Alkaline Phosphatase 107 U/L (35-104) H 99 U/L (35-104) Creatine Kinase MB 4.4 ng/mL (< 3.8) H Troponin I < 0.30 ng/mL (<=0.30) Total Protein 5.3 g/dL (6.6-8.7) L 4.7 g/dL (6.6-8.7) L Albumin 2.2 g/dL (3.5-5.2) L 1.8 g/dL (3.5-5.2) L Globulin 3.1 g/dL 2.9 g/dL Albumin/Globulin Ratio 0.7 (1.0-2.7) L 0.6 (1.0-2.7) L Arterial Blood pH 6.971 (7.350-7.450) 7.020 (7.350-7.450) Arterial Blood Partial Pressure CO2 35.3 mmHg (35.0-45.0) 31.6 mmHg (35.0-45.0) L Arterial Blood Partial Pressure O2 397.3 mmHg (75.0-100.0) H 117.5 mmHg (75.0-100.0) H Arterial Blood HCO3 8.0 mmol/L (22.0-26.0) L 8.1 mmol/L (22.0-26.0) L Arterial Blood Oxygen Saturation 99.7 % (92.0-98.0) H 95.8 % (92.0-98.0) Arterial Blood Base Excess -22.5 -21.4 Todd Test Positive Positive Myelocytes % 2 % (0-0) H Phosphorus Level 7.1 mg/dL (2.5-4.8) H Magnesium Level 2.4 mg/dL (1.7-2.5) Ammonia 55 umol/L (11-51) H GENESIS ANDRES May 15, 2016 11:34
--- NOTE | 2016-05-15 11:44 | Diagnostic Imaging Report ---
Indication: DYSPNEA Technique: One view of the chest Comparison: 05/14/2016 Findings: Endotracheal and nasogastric tubes remain. There is improved position of the endotracheal tube, tip now projecting just above the helga. There is suggestion of increased parenchymal consolidation or edema bilaterally, particularly on the left. Impression: Suspect worsening parenchymal disease, over 10 hours Improved and now satisfactory position of endotracheal tube
[2016-05-15] MEDS ORDERED: cefTRIAXone 1 GM in D5W 55 ML IVPB SCH (12:00)
[2016-05-15] MEDS ORDERED: cefTRIAXone 1gm/D5W 55ml IVPB SCH ×2 (12:00)
--- NOTE | 2016-05-15 12:04 | Diagnostic Imaging Report ---
Indication: Post intubation Technique: One view of the chest Comparison: 05/10/2016 Findings: Interim endotracheal intubation, endotracheal tube tip projects at the level of the right mainstem bronchus. Nasogastric tube is in place, tip projected beyond the edge of the image. There are mild prominent interstitial opacities in the perihilar regions bilaterally. No definite focal airspace consolidation or effusions. There is a cutaneous pacemaker paddle Impression: Low position of endotracheal tube, tip within the right mainstem bronchus. Satisfactory nasogastric intubation Nonspecific bilateral perihilar pulmonary interstitial opacities This agrees with the preliminary interpretation provided overnight by [facility] teleradiology service. This agrees with the preliminary interpretation provided by the emergency room physician
--- NOTE | 2016-05-15 12:07 | General Progress Note ---
Assessment/Plan Status: deteriorating Status Narrative hypoTensive on max pressors Assessment/Plan status; Acute renal failure- Etiology??? Possible hepatoRenal Now Hypotensive, Shock syndrom. Now acute respiratory failure- possible sepsis lactic acidosis UTI cirrhosis , hepatic encephalopathy, elevated bili end stage liver disease (with coagulopathy, thrombocytopenia, hypoalbuminemia) oliguria anemia of chronic disease hx of elevated CEA and AFP? possible malignancy Plan: hemodynamic support- No dialysis as hemodynamically unstable- Pressors IV protonix- Monitor renal parameters- Avoid nephro & Hepato toxic meds poor prognosis- in the past had Long discussion with daughter- Suggested comfort care- treatment appears futile at this time ! Subjective ROS Limited/Unobtainable: Yes Allergies: Coded Allergies: No Known Allergies (Unverified , 12/05/12) Objective Last 24 Hour Vital Signs Date Time Temp Pulse Resp B/P Pulse Ox O2 Delivery O2 Flow Rate FiO2 05/15/16 11:23 78/35 05/15/16 10:42 122 23 50 05/15/16 10:30 122 16 91/39 100 Mechanical Ventilator 50 05/15/16 10:00 119 17 90/41 100 Mechanical Ventilator 50 05/15/16 09:30 118 16 87/42 100 Mechanical Ventilator 50 05/15/16 09:02 121 21 50 05/15/16 09:00 124 16 74/36 100 Mechanical Ventilator 50 05/15/16 08:39 57/31 05/15/16 08:30 125 16 69/52 100 Mechanical Ventilator 50 05/15/16 08:15 127 16 78/51 100 Mechanical Ventilator 50 05/15/16 08:00 97.4 129 17 81/52 100 Mechanical Ventilator 50 05/15/16 08:00 50 05/15/16 08:00 128 05/15/16 07:45 130 16 79/48 100 Mechanical Ventilator 50 05/15/16 07:30 131 17 82/46 100 Mechanical Ventilator 50 05/15/16 07:15 132 16 85/47 100 Mechanical Ventilator 50 05/15/16 07:13 128 19 50 05/15/16 07:00 125 17 72/51 100 Mechanical Ventilator 50 05/15/16 06:45 129 17 80/44 98 Mechanical Ventilator 50 05/15/16 06:30 128 18 78/42 99 Mechanical Ventilator 50 05/15/16 06:15 126 18 52/42 99 Mechanical Ventilator 50 05/15/16 06:13 85/47 05/15/16 06:00 132 18 85/47 99 Mechanical Ventilator 50 05/15/16 06:00 85/47 05/15/16 05:45 132 18 75/43 99 Mechanical Ventilator 50 05/15/16 05:30 131 19 76/48 99 Mechanical Ventilator 50 05/15/16 05:15 131 20 84/46 98 Mechanical Ventilator 50 05/15/16 05:00 133 19 90/49 99 Mechanical Ventilator 50 05/15/16 05:00 90/49 05/15/16 04:55 133 20 50 05/15/16 04:45 133 19 85/51 99 Mechanical Ventilator 50 05/15/16 04:30 133 18 87/47 99 Mechanical Ventilator 50 05/15/16 04:15 133 17 97/48 99 Mechanical Ventilator 50 05/15/16 04:00 129 05/15/16 04:00 50 05/15/16 04:00 94.3 129 18 94/50 99 Mechanical Ventilator 50 05/15/16 03:53 62/36 05/15/16 03:45 131 15 62/36 98 Mechanical Ventilator 50.0 05/15/16 03:30 135 17 88/69 98 Mechanical Ventilator 50.0 05/15/16 03:26 135 18 50 05/15/16 03:15 135 19 91/54 98 Mechanical Ventilator 50.0 05/15/16 03:00 137 18 89/53 98 Mechanical Ventilator 50.0 05/15/16 03:00 89/53 05/15/16 02:45 137 18 86/56 98 Mechanical Ventilator 50.0 05/15/16 02:30 137 18 88/36 98 Mechanical Ventilator 50.0 05/15/16 02:15 138 17 92/65 98 Mechanical Ventilator 50.0 05/15/16 02:00 138 18 90/39 98 Mechanical Ventilator 50.0 05/15/16 02:00 90/59 05/15/16 01:45 139 18 101/35 98 Mechanical Ventilator 50.0 05/15/16 01:30 139 17 88/37 98 Mechanical Ventilator 50.0 05/15/16 01:15 138 16 88/34 98 Mechanical Ventilator 50.0 05/15/16 01:00 136 17 91/55 99 Mechanical Ventilator 50.0 05/15/16 01:00 91/55 3/9/17 00:55 131 18 50 05/15/16 00:45 134 17 96/61 99 Mechanical Ventilator 50.0 05/15/16 00:33 58/35 05/15/16 00:30 94.3 126 17 83/35 99 Mechanical Ventilator 50.0 05/15/16 00:15 115 18 55/30 96 Mechanical Ventilator 50.0 05/15/16 00:00 115 05/15/16 00:00 115 17 58/35 98 Mechanical Ventilator 50.0 05/14/16 23:45 116 16 58/39 97 Mechanical Ventilator 100.0 05/14/16 23:30 120 15 64/43 98 Mechanical Ventilator 100.0 05/14/16 23:15 121 15 74/39 98 Mechanical Ventilator 100.0 05/14/16 23:00 50 05/14/16 23:00 120 16 76/36 100 Mechanical Ventilator 100 05/14/16 22:55 119 19 50 05/14/16 22:45 120 16 66/35 100 Mechanical Ventilator 100 05/14/16 22:30 118 16 67/38 100 Mechanical Ventilator 100 05/14/16 22:15 119 16 60/33 100 Mechanical Ventilator 100 05/14/16 22:00 117 16 66/35 100 Mechanical Ventilator 100 05/14/16 21:45 121 16 70/34 100 Mechanical Ventilator 100 05/14/16 21:30 122 16 66/41 100 Mechanical Ventilator 100 05/14/16 21:15 121 17 69/43 100 Mechanical Ventilator 100 05/14/16 21:00 122 26 75/45 100 Mechanical Ventilator 100 05/14/16 20:45 100 05/14/16 20:41 118 18 133/79 98 Mechanical Ventilator 100 05/14/16 20:33 128 19 100 05/14/16 20:30 125 26 133/69 100 Mechanical Ventilator 100 05/14/16 15:56 97.9 66 18 99/58 97 Room Air 05/14/16 15:01 96.8 Intake and Output 05/14/16 05/15/16 19:00 07:00 Intake Total 955 ml 1990.0 ml Output Total 40 ml 200 ml Balance 915 ml 1790.0 ml IV Total 895 ml 1990.0 ml Tube Feeding 60 ml Output Urine Total 40 ml 0 ml Gastric Drainage Total 200 ml Laboratory Tests 05/14/16 20:50: White Blood Count 21.0#H, Red Blood Count 3.00L, Hemoglobin 9.3L, Hematocrit 32.1L, Mean Corpuscular Volume 107H, Mean Corpuscular Hemoglobin 31.0, Mean Corpuscular Hemoglobin Concent 28.9L, Red Cell Distribution Width 29.2H, Platelet Count 83L, Mean Platelet Volume 11.8H, Neutrophils (%) (Auto) , Lymphocytes (%) (Auto) , Monocytes (%) (Auto) , Eosinophils (%) (Auto) , Basophils (%) (Auto) , Differential Total Cells Counted 100, Neutrophils % ( Manual) 86H, Lymphocytes % (Manual) 7L, Monocytes % (Manual) 4, Eosinophils % ( Manual) 1, Basophils % (Manual) 1, Band Neutrophils 1, Nucleated Red Blood Cells 10, Platelet Estimate DecreasedL, Platelet Morphology Normal, Polychromasia 1+, Hypochromasia 2+, Poikilocytosis 2+, Anisocytosis 2+, Macrocytosis 1+, Karlos Cells 1+, Prothrombin Time 23.0H, Prothromb Time International Ratio 2.2H, Activated Partial Thromboplast Time 103H, Sodium Level 147H, Potassium Level 3.6, Chloride Level 108H, Carbon Dioxide Level 9*L, Anion Gap 30H, Blood Urea Nitrogen 63H, Creatinine 6.4H, Estimat Glomerular Filtration Rate , Glucose Level 180H, Calcium Level 8.0L, Total Bilirubin 26.2H , Direct Bilirubin 17.0H, Aspartate Amino Transf (AST/SGOT) 223H, Alanine Aminotransferase (ALT/SGPT) 42H, Alkaline Phosphatase 107H, Creatine Kinase MB 4.4H, Troponin I < 0.30, Total Protein 5.3L, Albumin 2.2L, Globulin 3.1, Albumin /Globulin Ratio 0.7L 05/14/16 21:40: Arterial Blood pH 6.971*L, Arterial Blood Partial Pressure CO2 35.3, Arterial Blood Partial Pressure O2 397.3H, Arterial Blood HCO3 8.0L, Arterial Blood Oxygen Saturation 99.7H, Arterial Blood Base Excess -22.5, Todd Test Positive 05/15/16 05:00: White Blood Count 14.4H, Red Blood Count 3.03L, Hemoglobin 9.6L, Hematocrit 31.9L, Mean Corpuscular Volume 105H, Mean Corpuscular Hemoglobin 31.5H, Mean Corpuscular Hemoglobin Concent 30.0L, Red Cell Distribution Width 30.2H, Platelet Count 74L, Mean Platelet Volume 14.0H, Neutrophils (%) (Auto) , Lymphocytes (%) (Auto) , Monocytes (%) (Auto) , Eosinophils (%) (Auto) , Basophils (%) (Auto) , Differential Total Cells Counted 100, Neutrophils % ( Manual) 77H, Lymphocytes % (Manual) 4L, Monocytes % (Manual) 6, Eosinophils % ( Manual) 0, Basophils % (Manual) 0, Band Neutrophils 11H, Nucleated Red Blood Cells 9, Platelet Estimate DecreasedL, Platelet Morphology Normal, Polychromasia 1+, Hypochromasia 1+, Anisocytosis 2+, Macrocytosis 1+, Karlos Cells 1+, Prothrombin Time 25.3H, Prothromb Time International Ratio 2.4H, Activated Partial Thromboplast Time 93H, Sodium Level 147H, Potassium Level 3.4 , Chloride Level 109H, Carbon Dioxide Level 8*L, Anion Gap 30H, Blood Urea Nitrogen 61H, Creatinine 6.3H, Estimat Glomerular Filtration Rate , Glucose Level 192H, Calcium Level 7.5L, Total Bilirubin 24.6H, Direct Bilirubin 15.4H, Aspartate Amino Transf (AST/SGOT) 436H, Alanine Aminotransferase (ALT/SGPT) 56H , Alkaline Phosphatase 99, Total Protein 4.7L, Albumin 1.8L, Globulin 2.9, Albumin/Globulin Ratio 0.6L, Myelocytes % 2H, Phosphorus Level 7.1H, Magnesium Level 2.4, Ammonia 55H 05/15/16 07:40: Arterial Blood pH 7.020*L, Arterial Blood Partial Pressure CO2 31.6L, Arterial Blood Partial Pressure O2 117.5H, Arterial Blood HCO3 8.1L, Arterial Blood Oxygen Saturation 95.8, Arterial Blood Base Excess -21.4, Todd Test Positive Height (Feet): 5 Height (Inches): 6.00 Weight (Pounds): 169 General Appearance: no apparent distress EENT: other - intubated Cardiovascular: tachycardia Respiratory/Chest: decreased breath sounds Abdomen: distended Edema: 2+ Arm (L), 2+ Arm (R), 2+ Leg (L), 2+ Leg (R), 2+ Pedal (L), 2+ Pedal ( R), 2+ Generalized Objective post code FERNANDA Angel May 15, 2016 12:07
--- NOTE | 2016-05-15 12:33 | GI Progress Note ---
Assessment/Plan Problems: (1) End stage liver disease ICD Codes: K72.90 - Hepatic failure, unspecified without coma SNOMED: 081383092 (2) Altered mental status (3) Severe anemia ICD Codes: D64.9 - Anemia, unspecified SNOMED: 470557714 (4) Elevated CEA ICD Codes: R97.0 - Elevated carcinoembryonic antigen [CEA] SNOMED: 01019620, 587444796 (5) Hypoalbuminemia ICD Codes: E88.09 - Other disorders of plasma-protein metabolism, not elsewhere classified SNOMED: 573411760 (6) Thrombocytopenia ICD Codes: D69.6 - Thrombocytopenia SNOMED: 720968196 (7) Anemia ICD Codes: D64.9 - Anemia SNOMED: 128244164 (8) Serum ammonia increased ICD Codes: E72.20 - Disorder of urea cycle metabolism, unspecified SNOMED: 4436976 Status: not improved, deteriorating Status Narrative Discussed with Dr. Churchill. Assessment/Plan s/p EGD 04/04/15 - Gastric AVM elevated iron LFT increasing dramatically most likely due to shock liver very poor prognosis elevated ammonia >> Xifaxan + lactulose monitor H&H, transfuse prn fu abdominal paracentesis >> r/o SBP ppi fu labs The patient was seen and examined at bedside and all new and available data was reviewed in the patients chart. I agree with the above findings, impression and plan. (Patient seen earlier today. Signature stamp does not reflect patient encounter time.). -Michaela Churchill MD Subjective Subjective limited Objective Last 24 Hour Vital Signs Date Time Temp Pulse Resp B/P Pulse Ox O2 Delivery O2 Flow Rate FiO2 05/15/16 11:23 78/35 05/15/16 10:42 122 23 50 05/15/16 10:30 122 16 91/39 100 Mechanical Ventilator 50 05/15/16 10:00 119 17 90/41 100 Mechanical Ventilator 50 05/15/16 09:30 118 16 87/42 100 Mechanical Ventilator 50 05/15/16 09:02 121 21 50 05/15/16 09:00 124 16 74/36 100 Mechanical Ventilator 50 05/15/16 08:39 57/31 05/15/16 08:30 125 16 69/52 100 Mechanical Ventilator 50 05/15/16 08:15 127 16 78/51 100 Mechanical Ventilator 50 05/15/16 08:00 97.4 129 17 81/52 100 Mechanical Ventilator 50 05/15/16 08:00 50 05/15/16 08:00 128 05/15/16 07:45 130 16 79/48 100 Mechanical Ventilator 50 05/15/16 07:30 131 17 82/46 100 Mechanical Ventilator 50 05/15/16 07:15 132 16 85/47 100 Mechanical Ventilator 50 05/15/16 07:13 128 19 50 05/15/16 07:00 125 17 72/51 100 Mechanical Ventilator 50 05/15/16 06:45 129 17 80/44 98 Mechanical Ventilator 50 05/15/16 06:30 128 18 78/42 99 Mechanical Ventilator 50 05/15/16 06:15 126 18 52/42 99 Mechanical Ventilator 50 05/15/16 06:13 85/47 05/15/16 06:00 132 18 85/47 99 Mechanical Ventilator 50 05/15/16 06:00 85/47 05/15/16 05:45 132 18 75/43 99 Mechanical Ventilator 50 05/15/16 05:30 131 19 76/48 99 Mechanical Ventilator 50 05/15/16 05:15 131 20 84/46 98 Mechanical Ventilator 50 05/15/16 05:00 133 19 90/49 99 Mechanical Ventilator 50 05/15/16 05:00 90/49 05/15/16 04:55 133 20 50 05/15/16 04:45 133 19 85/51 99 Mechanical Ventilator 50 05/15/16 04:30 133 18 87/47 99 Mechanical Ventilator 50 05/15/16 04:15 133 17 97/48 99 Mechanical Ventilator 50 05/15/16 04:00 129 05/15/16 04:00 50 05/15/16 04:00 94.3 129 18 94/50 99 Mechanical Ventilator 50 05/15/16 03:53 62/36 05/15/16 03:45 131 15 62/36 98 Mechanical Ventilator 50.0 05/15/16 03:30 135 17 88/69 98 Mechanical Ventilator 50.0 05/15/16 03:26 135 18 50 05/15/16 03:15 135 19 91/54 98 Mechanical Ventilator 50.0 05/15/16 03:00 137 18 89/53 98 Mechanical Ventilator 50.0 05/15/16 03:00 89/53 05/15/16 02:45 137 18 86/56 98 Mechanical Ventilator 50.0 05/15/16 02:30 137 18 88/36 98 Mechanical Ventilator 50.0 05/15/16 02:15 138 17 92/65 98 Mechanical Ventilator 50.0 05/15/16 02:00 138 18 90/39 98 Mechanical Ventilator 50.0 05/15/16 02:00 90/59 05/15/16 01:45 139 18 101/35 98 Mechanical Ventilator 50.0 05/15/16 01:30 139 17 88/37 98 Mechanical Ventilator 50.0 05/15/16 01:15 138 16 88/34 98 Mechanical Ventilator 50.0 05/15/16 01:00 136 17 91/55 99 Mechanical Ventilator 50.0 05/15/16 01:00 91/55 05/15/16 00:55 131 18 50 05/15/16 00:45 134 17 96/61 99 Mechanical Ventilator 50.0 05/15/16 00:33 58/35 05/15/16 00:30 94.3 126 17 83/35 99 Mechanical Ventilator 50.0 05/15/16 00:15 115 18 55/30 96 Mechanical Ventilator 50.0 05/15/16 00:00 115 05/15/16 00:00 115 17 58/35 98 Mechanical Ventilator 50.0 05/14/16 23:45 116 16 58/39 97 Mechanical Ventilator 100.0 05/14/16 23:30 120 15 64/43 98 Mechanical Ventilator 100.0 05/14/16 23:15 121 15 74/39 98 Mechanical Ventilator 100.0 05/14/16 23:00 50 05/14/16 23:00 120 16 76/36 100 Mechanical Ventilator 100 05/14/16 22:55 119 19 50 05/14/16 22:45 120 16 66/35 100 Mechanical Ventilator 100 05/14/16 22:30 118 16 67/38 100 Mechanical Ventilator 100 05/14/16 22:15 119 16 60/33 100 Mechanical Ventilator 100 05/14/16 22:00 117 16 66/35 100 Mechanical Ventilator 100 05/14/16 21:45 121 16 70/34 100 Mechanical Ventilator 100 05/14/16 21:30 122 16 66/41 100 Mechanical Ventilator 100 05/14/16 21:15 121 17 69/43 100 Mechanical Ventilator 100 05/14/16 21:00 122 26 75/45 100 Mechanical Ventilator 100 05/14/16 20:45 100 05/14/16 20:41 118 18 133/79 98 Mechanical Ventilator 100 05/14/16 20:33 128 19 100 05/14/16 20:30 125 26 133/69 100 Mechanical Ventilator 100 05/14/16 15:56 97.9 66 18 99/58 97 Room Air 05/14/16 15:01 96.8 Intake and Output 05/14/16 05/15/16 19:00 07:00 Intake Total 955 ml 1990.0 ml Output Total 40 ml 200 ml Balance 915 ml 1790.0 ml IV Total 895 ml 1990.0 ml Tube Feeding 60 ml Output Urine Total 40 ml 0 ml Gastric Drainage Total 200 ml Laboratory Tests Test 05/14/16 20:50 05/14/16 21:40 05/15/16 05:00 05/15/16 07:40 White Blood Count 21.0 K/UL (4.8-10.8) #H 14.4 K/UL (4.8-10.8) H Red Blood Count 3.00 M/UL (4.20-5.40) L 3.03 M/UL (4.20-5.40) L Hemoglobin 9.3 G/DL (12.0-16.0) L 9.6 G/DL (12.0-16.0) L Hematocrit 32.1 % (37.0-47.0) L 31.9 % (37.0-47.0) L Mean Corpuscular Volume 107 FL (80-99) H 105 FL (80-99) H Mean Corpuscular Hemoglobin 31.0 PG (27.0-31.0) 31.5 PG (27.0-31.0) H Mean Corpuscular Hemoglobin Concent 28.9 G/DL (32.0-36.0) L 30.0 G/DL (32.0-36.0) L Red Cell Distribution Width 29.2 % (11.6-14.8) H 30.2 % (11.6-14.8) H Platelet Count 83 K/UL (150-450) L 74 K/UL (150-450) L Mean Platelet Volume 11.8 FL (6.5-10.1) H 14.0 FL (6.5-10.1) H Neutrophils (%) (Auto) % (45.0-75.0) % (45.0-75.0) Lymphocytes (%) (Auto) % (20.0-45.0) % (20.0-45.0) Monocytes (%) (Auto) % (1.0-10.0) % (1.0-10.0) Eosinophils (%) (Auto) % (0.0-3.0) % (0.0-3.0) Basophils (%) (Auto) % (0.0-2.0) % (0.0-2.0) Differential Total Cells Counted 100 100 Neutrophils % (Manual) 86 % (45-75) H 77 % (45-75) H Lymphocytes % (Manual) 7 % (20-45) L 4 % (20-45) L Monocytes % (Manual) 4 % (1-10) 6 % (1-10) Eosinophils % (Manual) 1 % (0-3) 0 % (0-3) Basophils % (Manual) 1 % (0-2) 0 % (0-2) Band Neutrophils 1 % (0-8) 11 % (0-8) H Nucleated Red Blood Cells 10 /100 WBC 9 /100 WBC Platelet Estimate Decreased L Decreased L Platelet Morphology Normal Normal Polychromasia 1+ 1+ Hypochromasia 2+ 1+ Poikilocytosis 2+ Anisocytosis 2+ 2+ Macrocytosis 1+ 1+ Willcox Cells 1+ 1+ Prothrombin Time 23.0 SEC (9.30-11.50) H 25.3 SEC (9.30-11.50) H Prothromb Time International Ratio 2.2 (0.9-1.1) H 2.4 (0.9-1.1) H Activated Partial Thromboplast Time 103 SEC (23-33) H 93 SEC (23-33) H Sodium Level 147 mEQ/L (135-145) H 147 mEQ/L (135-145) H Potassium Level 3.6 mEQ/L (3.4-4.9) 3.4 mEQ/L (3.4-4.9) Chloride Level 108 mEQ/L (98-107) H 109 mEQ/L (98-107) H Carbon Dioxide Level 9 mEQ/L (20-30) *L 8 mEQ/L (20-30) *L Anion Gap 30 (5-15) H 30 (5-15) H Blood Urea Nitrogen 63 mg/dL (7-23) H 61 mg/dL (7-23) H Creatinine 6.4 mg/dL (0.5-0.9) H 6.3 mg/dL (0.5-0.9) H Estimat Glomerular Filtration Rate mL/min (>60) mL/min (>60) Glucose Level 180 mg/dL (74-106) H 192 mg/dL (74-106) H Calcium Level 8.0 mg/dL (8.6-10.2) L 7.5 mg/dL (8.6-10.2) L Total Bilirubin 26.2 mg/dL (0.0-1.2) H 24.6 mg/dL (0.0-1.2) H Direct Bilirubin 17.0 mg/dL (0.1-0.3) H 15.4 mg/dL (0.1-0.3) H Aspartate Amino Transf (AST/SGOT) 223 U/L (5-40) H 436 U/L (5-40) H Alanine Aminotransferase (ALT/SGPT) 42 U/L (3-33) H 56 U/L (3-33) H Alkaline Phosphatase 107 U/L (35-104) H 99 U/L (35-104) Creatine Kinase MB 4.4 ng/mL (< 3.8) H Troponin I < 0.30 ng/mL (<=0.30) Total Protein 5.3 g/dL (6.6-8.7) L 4.7 g/dL (6.6-8.7) L Albumin 2.2 g/dL (3.5-5.2) L 1.8 g/dL (3.5-5.2) L Globulin 3.1 g/dL 2.9 g/dL Albumin/Globulin Ratio 0.7 (1.0-2.7) L 0.6 (1.0-2.7) L Arterial Blood pH 6.971 (7.350-7.450) 7.020 (7.350-7.450) Arterial Blood Partial Pressure CO2 35.3 mmHg (35.0-45.0) 31.6 mmHg (35.0-45.0) L Arterial Blood Partial Pressure O2 397.3 mmHg (75.0-100.0) H 117.5 mmHg (75.0-100.0) H Arterial Blood HCO3 8.0 mmol/L (22.0-26.0) L 8.1 mmol/L (22.0-26.0) L Arterial Blood Oxygen Saturation 99.7 % (92.0-98.0) H 95.8 % (92.0-98.0) Arterial Blood Base Excess -22.5 -21.4 Todd Test Positive Positive Myelocytes % 2 % (0-0) H Phosphorus Level 7.1 mg/dL (2.5-4.8) H Magnesium Level 2.4 mg/dL (1.7-2.5) Ammonia 55 umol/L (11-51) H Height (Feet): 5 Height (Inches): 6.00 Weight (Pounds): 169 General Appearance: lethargic Cardiovascular: normal rate Respiratory/Chest: other - mech vent Abdominal Exam: ascites Objective Date of Service: 04/03/16 Endoscopy Procedure Note Indication for Procedure: gib Procedures Performed: EGD Operative Findings/Diagnosis: Gastric avm MICHAELA CHURCHILL - Apr 04, 2016 10:09 Maris Ramirez N.P. May 15, 2016 12:33 MICHAELA CHURCHILL May 20, 2016 12:38
[2016-05-15 14:51] LABS: OTHERS PATHOLOGIST COMMENT
[2016-05-15] MEDS ORDERED: D5W 275ml ONE (15:06)
[2016-05-15] MEDS: Phenylephrine 50 MG in D5W 245 ML IV SCH ×2 (17:57→22:34)
[2016-05-15] MEDS ORDERED: Zolpidem 5mg tab ORAL PRN (21:00)
[2016-05-15] MEDS ORDERED: Miralax 17gm pkt ORAL PRN (21:00)
[2016-05-16] VITALS (70 sets, daily range): BP systolic 0–119; BP diastolic 0–47
[2016-05-16] MEDS: Lactulose 20gm/30ml UDC ORAL SCH ×2 (00:50→05:44)
[2016-05-16] MEDS: Phenylephrine 50 MG in D5W 245 ML IV SCH ×3 (04:10→11:04)
[2016-05-16] MEDS ORDERED: Phenylephrine 10mg/ml 5ml vial IV ONE (06:01)
[2016-05-16 06:29] LABS: MEAN CORPUSCULAR VOLUME 110 FL (80-99); MEAN PLATELET VOLUME 5.4 FL (6.5-10.1); PLATELET COUNT 21 K/UL (150-450); RED BLOOD COUNT 2.32 M/UL (4.20-5.40); RED CELL DISTRIBUTION WIDTH 30.7 % (11.6-14.8)
[2016-05-16 07:07] LABS: ALANINE AMINOTRANSFERASE 256 U/L (3-33); ALBUMIN/GLOBULIN RATIO 0.6 (1.0-2.7); CALCIUM 7.5 mg/dL (8.6-10.2); CHLORIDE 95 mEQ/L (98-107); CREATININE 6.4 mg/dL (0.5-0.9); HEMOLYSIS 68; MAGNESIUM 2.4 mg/dL (1.7-2.5); PHOSPHORUS 8.6 mg/dL (2.5-4.8); POTASSIUM 4.6 mEQ/L (3.4-4.9); SODIUM 132 mEQ/L (135-145); TOTAL PROTEIN 3.9 g/dL (6.6-8.7)
[2016-05-16 07:18] LABS: ASPARTATE AMINO TRANSFERASE 2939 U/L (5-40)
[2016-05-16 07:19] LABS: ANION GAP 33 (5-15); CARBON DIOXIDE 4 mEQ/L (20-30)
[2016-05-16 08:05] LABS: ANISOCYTOSIS 1+; BAND NEUTROPHILS % (MANUAL) 7 % (0-8); BASOPHILS % (MANUAL) 0 % (0-2); BURR CELLS OCCASIONAL; EOSINOPHILS % (MANUAL) 2 % (0-3); HYPOCHROMASIA OCCASIONAL; LYMPHOCYTES % (MANUAL) 17 % (20-45); NEUTROPHILS % (MANUAL) 70 % (45-75); PLATELET ESTIMATE DECREASED; PLATELET MORPHOLOGY NORMAL; POLYCHROMASIA OCCASIONAL; TOTAL CELLS COUNTED 100
[2016-05-16 08:16] LABS: BILIRUBIN,DIRECT 11.6 mg/dL (0.1-0.3)
[2016-05-16] MEDS: Rifaximin 550mg tab ORAL SCH (09:14)
[2016-05-16] MEDS: Pantoprazole Inj IV SCH (09:14)
[2016-05-16 10:20] LABS: ABG ALLEN TEST POSITIVE; ABG BASE EXCESS -29.2; ABG PCO2 25.2 mmHg (35.0-45.0)
--- NOTE | 2016-05-16 10:43 | General Progress Note ---
Assessment/Plan Status: unchanged, deteriorating Assessment/Plan status; Acute renal failure- Etiology??? Possible hepatoRenal Now Hypotensive, Shock syndrom. Now acute respiratory failure- possible sepsis lactic acidosis UTI cirrhosis , hepatic encephalopathy, elevated bili end stage liver disease (with coagulopathy, thrombocytopenia, hypoalbuminemia) oliguria anemia of chronic disease hx of elevated CEA and AFP? possible malignancy Plan: Now DNR No dialysis as hemodynamically unstable- Pressors IV protonix- poor prognosis- in the past had Long discussion with daughter- Suggested comfort care- treatment appears futile at this time ! Subjective ROS Limited/Unobtainable: Yes Allergies: Coded Allergies: No Known Allergies (Unverified , 12/05/12) Objective Last 24 Hour Vital Signs Date Time Temp Pulse Resp B/P Pulse Ox O2 Delivery O2 Flow Rate FiO2 05/16/16 08:00 50 05/16/16 07:02 89/28 05/16/16 06:45 81 18 91/28 96 Mechanical Ventilator 50 05/16/16 06:34 81 21 50 05/16/16 06:30 78 18 86/27 96 Mechanical Ventilator 50 05/16/16 06:15 83 18 94/28 96 Mechanical Ventilator 50 05/16/16 06:05 83 98/28 05/16/16 06:00 83 18 95/32 96 Mechanical Ventilator 50 05/16/16 05:55 102/26 05/16/16 05:45 84 18 98/28 96 Mechanical Ventilator 50 05/16/16 05:30 85 18 102/28 96 Mechanical Ventilator 50 05/16/16 05:15 86 19 103/31 91 Mechanical Ventilator 50 05/16/16 05:10 86 23 50 05/16/16 05:00 108/29 05/16/16 05:00 86 19 108/29 91 Mechanical Ventilator 50 05/16/16 04:45 87 19 107/32 91 Mechanical Ventilator 50 05/16/16 04:30 87 19 108/29 91 Mechanical Ventilator 50 05/16/16 04:15 87 19 105/33 91 Mechanical Ventilator 50 05/16/16 04:10 87 112/32 05/16/16 04:00 87 05/16/16 04:00 50 05/16/16 04:00 98.2 87 19 108/31 91 Mechanical Ventilator 50 05/16/16 03:45 88 19 112/32 91 Mechanical Ventilator 50 05/16/16 03:30 88 19 105/28 91 Mechanical Ventilator 50 05/16/16 03:15 83 19 103/29 91 Mechanical Ventilator 50 05/16/16 03:10 87 21 50 05/16/16 03:00 82 19 102/28 91 Mechanical Ventilator 50 05/16/16 03:00 102/05/16/16 02:45 80 19 107/31 91 Mechanical Ventilator 50 05/16/16 02:30 78 18 103/30 93 Mechanical Ventilator 50 05/16/16 02:15 80 18 93/24 93 Mechanical Ventilator 50 05/16/16 02:00 77 18 93/24 93 Mechanical Ventilator 50 05/16/16 02:00 93/24 05/16/16 01:58 74/28 05/16/16 01:45 77 18 90/34 93 Mechanical Ventilator 50 05/16/16 01:30 70 18 74/28 96 Mechanical Ventilator 50 05/16/16 01:15 77 18 76/29 93 Mechanical Ventilator 50 05/16/16 01:00 92/32 05/16/16 01:00 78 18 92/32 93 Mechanical Ventilator 50 05/16/16 00:53 131 23 50 05/16/16 00:45 127 18 91/33 93 Mechanical Ventilator 50 05/16/16 00:30 127 18 87/41 93 Mechanical Ventilator 50 05/16/16 00:15 130 18 86/37 93 Mechanical Ventilator 50 05/16/16 00:00 97.7 127 18 93/42 93 Mechanical Ventilator 50 05/16/16 00:00 93/42 05/16/16 00:00 50 05/16/16 00:00 127 05/15/16 23:45 130 18 85/35 93 Mechanical Ventilator 50 05/15/16 23:30 137 21 50 05/15/16 23:30 132 18 86/38 93 Mechanical Ventilator 50 05/15/16 23:15 129 18 83/42 93 Mechanical Ventilator 50 05/15/16 23:00 130 20 88/46 99 Mechanical Ventilator 50 05/15/16 22:45 121 19 78/37 93 Mechanical Ventilator 50 05/15/16 22:34 121 57/19 05/15/16 22:30 121 18 79/27 94 Mechanical Ventilator 50 05/15/16 22:15 121 17 57/19 92 Mechanical Ventilator 50 05/15/16 22:00 123 17 55/33 92 Mechanical Ventilator 50 05/15/16 21:45 124 19 83/42 96 Mechanical Ventilator 50 05/15/16 21:30 125 18 83/42 96 Mechanical Ventilator 50 05/15/16 21:15 126 23 87/44 96 Mechanical Ventilator 50 05/15/16 21:00 125 23 82/44 96 Mechanical Ventilator 50 05/15/16 20:56 82/44 05/15/16 20:52 121 23 50 05/15/16 20:45 124 23 81/39 96 Mechanical Ventilator 50 05/15/16 20:30 125 23 82/44 95 Mechanical Ventilator 50 05/15/16 20:15 126 23 87/33 96 Mechanical Ventilator 50 05/15/16 20:00 98.6 125 22 87/47 100 Mechanical Ventilator 50 05/15/16 20:00 50 05/15/16 20:00 122 05/15/16 19:45 125 20 94/47 96 Mechanical Ventilator 50 05/15/16 19:30 126 20 87/47 96 Mechanical Ventilator 50 05/15/16 19:15 122 21 89/59 96 Mechanical Ventilator 50 05/15/16 19:00 125 21 88/44 96 Mechanical Ventilator 50 05/15/16 19:00 133 21 50 05/15/16 18:45 125 21 84/44 96 Mechanical Ventilator 50 05/15/16 18:30 124 21 83/43 96 Mechanical Ventilator 50 05/15/16 18:15 129 22 81/39 96 Mechanical Ventilator 50 05/15/16 18:00 131 23 52/36 96 Mechanical Ventilator 50 05/15/16 18:00 52/36 05/15/16 17:57 132 66/35 05/15/16 17:45 133 23 66/34 96 Mechanical Ventilator 50 05/15/16 17:33 132 23 50 05/15/16 17:30 132 22 62/42 96 Mechanical Ventilator 50 05/15/16 17:15 132 23 58/37 96 Mechanical Ventilator 50 05/15/16 17:00 133 21 76/43 96 Mechanical Ventilator 50 05/15/16 17:00 76/43 05/15/16 16:45 132 23 69/37 96 Mechanical Ventilator 50 05/15/16 16:30 149 22 70/41 96 Mechanical Ventilator 50 05/15/16 16:15 97.9 149 23 70/42 94 Mechanical Ventilator 50 05/15/16 16:00 50 05/15/16 16:00 149 23 67/33 94 Mechanical Ventilator 50 05/15/16 16:00 67/33 05/15/16 16:00 160 05/15/16 15:45 132 23 53/30 94 Mechanical Ventilator 50 05/15/16 15:30 135 23 65/29 94 Mechanical Ventilator 50 05/15/16 15:15 137 23 69/32 95 Mechanical Ventilator 50 05/15/16 15:00 139 23 73/30 100 Mechanical Ventilator 50 05/15/16 15:00 72/36 05/15/16 15:00 72/36 05/15/16 15:00 73/30 05/15/16 15:00 139 20 50 05/15/16 14:45 136 18 76/53 100 Mechanical Ventilator 50 05/15/16 14:00 67/29 05/15/16 14:00 135 23 67/29 100 Mechanical Ventilator 50 05/15/16 13:34 53/30 05/15/16 13:30 141 24 53/30 100 Mechanical Ventilator 50 05/15/16 13:03 137 23 50 05/15/16 13:00 68/38 05/15/16 13:00 126 24 75/27 100 Mechanical Ventilator 50 05/15/16 12:30 127 23 86/36 100 Mechanical Ventilator 50 05/15/16 12:00 98.9 124 20 75/37 100 Mechanical Ventilator 50 05/15/16 12:00 50 05/15/16 12:00 75/37 05/15/16 12:00 125 05/15/16 11:30 124 20 81/37 100 Mechanical Ventilator 50 05/15/16 11:23 78/35 05/15/16 11:00 78/35 05/15/16 11:00 124 20 78/35 100 Mechanical Ventilator 50 05/15/16 10:42 122 23 50 05/15/16 10:30 122 16 91/39 100 Mechanical Ventilator 50 Intake and Output 05/15/16 05/16/16 19:00 07:00 Intake Total 2415.0 ml 2637.0 ml Output Total 0 ml 5 ml Balance 2415.0 ml 2632.0 ml Free Water 50 ml 50 ml IV Total 2365.0 ml 2517.0 ml Other 70 ml Output Urine Total 0 ml 5 ml # Bowel Movements 1 Laboratory Tests 05/16/16 04:50: White Blood Count 26.0#*H, Red Blood Count 2.32L, Hemoglobin 7.4L, Hematocrit 25.6L, Mean Corpuscular Volume 110H, Mean Corpuscular Hemoglobin 32.0H, Mean Corpuscular Hemoglobin Concent 29.0L, Red Cell Distribution Width 30.7H, Platelet Count 21#L, Mean Platelet Volume 5.4L, Neutrophils (%) (Auto) , Lymphocytes (%) (Auto) , Monocytes (%) (Auto) , Eosinophils (%) (Auto) , Basophils (%) (Auto) , Differential Total Cells Counted 100, Neutrophils % ( Manual) 70, Lymphocytes % (Manual) 17L, Monocytes % (Manual) 4, Eosinophils % ( Manual) 2, Basophils % (Manual) 0, Band Neutrophils 7, Platelet Estimate DecreasedL, Platelet Morphology Normal, Polychromasia Occasional, Hypochromasia Occasional, Anisocytosis 1+, [place] Cells Occasional, Sodium Level 132#L, Potassium Level 4.6, Chloride Level 95L, Carbon Dioxide Level 4*L, Anion Gap 33H , Blood Urea Nitrogen 58H, Creatinine 6.4H, Estimat Glomerular Filtration Rate , Glucose Level 287H, Calcium Level 7.5L, Phosphorus Level 8.6H, Magnesium Level 2.4, Total Bilirubin 16.8H, Direct Bilirubin 11.6H, Aspartate Amino Transf (AST/SGOT) 2939H, Alanine Aminotransferase (ALT/SGPT) 256H, Alkaline Phosphatase 182H, Total Protein 3.9L, Albumin 1.5L, Globulin 2.4, Albumin/ Globulin Ratio 0.6L 05/16/16 10:00: Arterial Blood pH 6.780*L, Arterial Blood Partial Pressure CO2 25.2L, Arterial Blood Partial Pressure O2 113.8H, Arterial Blood HCO3 3.7L, Arterial Blood Oxygen Saturation 96.2, Arterial Blood Base Excess -29.2, Todd Test Positive Height (Feet): 5 Height (Inches): 6.00 Weight (Pounds): 169 General Appearance: no apparent distress, other - comatose Neck: stiff neck Cardiovascular: tachycardia Respiratory/Chest: decreased breath sounds Abdomen: distended Objective post code FERNANDA Angel May 16, 2016 10:43
--- NOTE | 2016-05-16 10:56 | Pulmonolgy Critical Care Note ---
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 Critical Care - Objective Last 24 Hour Vital Signs Date Time Temp Pulse Resp B/P Pulse Ox O2 Delivery O2 Flow Rate FiO2 05/16/16 09:50 80 20 50 05/16/16 08:00 50 05/16/16 07:02 89/28 05/16/16 06:45 81 18 91/28 96 Mechanical Ventilator 50 05/16/16 06:34 81 21 50 05/16/16 06:30 78 18 86/27 96 Mechanical Ventilator 50 05/16/16 06:15 83 18 94/28 96 Mechanical Ventilator 50 05/16/16 06:05 83 98/28 05/16/16 06:00 83 18 95/32 96 Mechanical Ventilator 50 05/16/16 05:55 102/26 05/16/16 05:45 84 18 98/28 96 Mechanical Ventilator 50 05/16/16 05:30 85 18 102/28 96 Mechanical Ventilator 50 05/16/16 05:15 86 19 103/31 91 Mechanical Ventilator 50 05/16/16 05:10 86 23 50 05/16/16 05:00 108/29 05/16/16 05:00 86 19 108/29 91 Mechanical Ventilator 50 05/16/16 04:45 87 19 107/32 91 Mechanical Ventilator 50 05/16/16 04:30 87 19 108/29 91 Mechanical Ventilator 50 05/16/16 04:15 87 19 105/33 91 Mechanical Ventilator 50 05/16/16 04:10 87 112/32 05/16/16 04:00 87 05/16/16 04:00 50 05/16/16 04:00 98.2 87 19 108/31 91 Mechanical Ventilator 50 05/16/16 03:45 88 19 112/32 91 Mechanical Ventilator 50 05/16/16 03:30 88 19 105/28 91 Mechanical Ventilator 50 05/16/16 03:15 83 19 103/29 91 Mechanical Ventilator 50 05/16/16 03:10 87 21 50 05/16/16 03:00 82 19 102/28 91 Mechanical Ventilator 50 05/16/16 03:00 102/28 05/16/16 02:45 80 19 107/31 91 Mechanical Ventilator 50 05/16/16 02:30 78 18 103/30 93 Mechanical Ventilator 50 05/16/16 02:15 80 18 93/24 93 Mechanical Ventilator 50 05/16/16 02:00 77 18 93/24 93 Mechanical Ventilator 50 05/16/16 02:00 93/24 05/16/16 01:58 74/28 05/16/16 01:45 77 18 90/34 93 Mechanical Ventilator 50 05/16/16 01:30 70 18 74/28 96 Mechanical Ventilator 50 05/16/16 01:15 77 18 76/29 93 Mechanical Ventilator 50 05/16/16 01:00 92/32 05/16/16 01:00 78 18 92/32 93 Mechanical Ventilator 50 05/16/16 00:53 131 23 50 05/16/16 00:45 127 18 91/33 93 Mechanical Ventilator 50 05/16/16 00:30 127 18 87/41 93 Mechanical Ventilator 50 05/16/16 00:15 130 18 86/37 93 Mechanical Ventilator 50 05/16/16 00:00 97.7 127 18 93/42 93 Mechanical Ventilator 50 05/16/16 00:00 93/42 05/16/16 00:00 50 05/16/16 00:00 127 05/15/16 23:45 130 18 85/35 93 Mechanical Ventilator 50 05/15/16 23:30 137 21 50 05/15/16 23:30 132 18 86/38 93 Mechanical Ventilator 50 05/15/16 23:15 129 18 83/42 93 Mechanical Ventilator 50 05/15/16 23:00 130 20 88/46 99 Mechanical Ventilator 50 05/15/16 22:45 121 19 78/37 93 Mechanical Ventilator 50 05/15/16 22:34 121 57/19 05/15/16 22:30 121 18 79/27 94 Mechanical Ventilator 50 05/15/16 22:15 121 17 57/19 92 Mechanical Ventilator 50 05/15/16 22:00 123 17 55/33 92 Mechanical Ventilator 50 05/15/16 21:45 124 19 83/42 96 Mechanical Ventilator 50 05/15/16 21:30 125 18 83/42 96 Mechanical Ventilator 50 05/15/16 21:15 126 23 87/44 96 Mechanical Ventilator 50 05/15/16 21:00 125 23 82/44 96 Mechanical Ventilator 50 05/15/16 20:56 82/44 05/15/16 20:52 121 23 50 05/15/16 20:45 124 23 81/39 96 Mechanical Ventilator 50 05/15/16 20:30 125 23 82/44 95 Mechanical Ventilator 50 05/15/16 20:15 126 23 87/33 96 Mechanical Ventilator 50 05/15/16 20:00 98.6 125 22 87/47 100 Mechanical Ventilator 50 05/15/16 20:00 50 05/15/16 20:00 122 05/15/16 19:45 125 20 94/47 96 Mechanical Ventilator 50 05/15/16 19:30 126 20 87/47 96 Mechanical Ventilator 50 05/15/16 19:15 122 21 89/59 96 Mechanical Ventilator 50 05/15/16 19:00 125 21 88/44 96 Mechanical Ventilator 50 05/15/16 19:00 133 21 50 05/15/16 18:45 125 21 84/44 96 Mechanical Ventilator 50 05/15/16 18:30 124 21 83/43 96 Mechanical Ventilator 50 05/15/16 18:15 129 22 81/39 96 Mechanical Ventilator 50 05/15/16 18:00 131 23 52/36 96 Mechanical Ventilator 50 05/15/16 18:00 52/36 05/15/16 17:57 132 66/35 05/15/16 17:45 133 23 66/34 96 Mechanical Ventilator 50 05/15/16 17:33 132 23 50 05/15/16 17:30 132 22 62/42 96 Mechanical Ventilator 50 05/15/16 17:15 132 23 58/37 96 Mechanical Ventilator 50 05/15/16 17:00 133 21 76/43 96 Mechanical Ventilator 50 05/15/16 17:00 76/43 05/15/16 16:45 132 23 69/37 96 Mechanical Ventilator 50 05/15/16 16:30 149 22 70/41 96 Mechanical Ventilator 50 05/15/16 16:15 97.9 149 23 70/42 94 Mechanical Ventilator 50 05/15/16 16:00 50 05/15/16 16:00 149 23 67/33 94 Mechanical Ventilator 50 05/15/16 16:00 67/33 05/15/16 16:00 160 05/15/16 15:45 132 23 53/30 94 Mechanical Ventilator 50 05/15/16 15:30 135 23 65/29 94 Mechanical Ventilator 50 05/15/16 15:15 137 23 69/32 95 Mechanical Ventilator 50 05/15/16 15:00 139 23 73/30 100 Mechanical Ventilator 50 05/15/16 15:00 72/36 05/15/16 15:00 72/36 05/15/16 15:00 73/30 05/15/16 15:00 139 20 50 05/15/16 14:45 136 18 76/53 100 Mechanical Ventilator 50 05/15/16 14:00 67/29 05/15/16 14:00 135 23 67/29 100 Mechanical Ventilator 50 05/15/16 13:34 53/30 05/15/16 13:30 141 24 53/30 100 Mechanical Ventilator 50 05/15/16 13:03 137 23 50 05/15/16 13:00 68/38 05/15/16 13:00 126 24 75/27 100 Mechanical Ventilator 50 05/15/16 12:30 127 23 86/36 100 Mechanical Ventilator 50 05/15/16 12:00 98.9 124 20 75/37 100 Mechanical Ventilator 50 05/15/16 12:00 50 05/15/16 12:00 75/37 05/15/16 12:00 125 05/15/16 11:30 124 20 81/37 100 Mechanical Ventilator 50 05/15/16 11:23 78/35 05/15/16 11:00 78/35 05/15/16 11:00 124 20 78/35 100 Mechanical Ventilator 50 Status: awake Condition: critical, grave HEENT: atraumatic, normocephalic Lungs: clear, chest wall tender Heart: HR/BP stable Abdomen: soft, active bowel sounds Extremities: no C/C/E, edema Decubiti: stage Accucheck: 169 Critical Care - Subjective ROS Limited/Unobtainable: Yes FI02: 50 Vent Support Breath Rate: 20 Vent Support Mode: AC Vent Tidal Volume: 550 Sputum Amount: Scant PEEP: 5.0 PIP: 30 Secretions: small Fluids: 75 cc of d5w Tube Feeding Amount: 0 I&O: Intake and Output 05/15/16 05/16/16 19:00 07:00 Intake Total 2415.0 ml 2637.0 ml Output Total 0 ml 5 ml Balance 2415.0 ml 2632.0 ml Free Water 50 ml 50 ml IV Total 2365.0 ml 2517.0 ml Other 70 ml Output Urine Total 0 ml 5 ml # Bowel Movements 1 CXR: no change ET-Tube: 7.0 ET Position: 22 Labs: Laboratory Tests Test 05/16/16 04:50 05/16/16 10:00 White Blood Count 26.0 K/UL (4.8-10.8) #*H Red Blood Count 2.32 M/UL (4.20-5.40) L Hemoglobin 7.4 G/DL (12.0-16.0) L Hematocrit 25.6 % (37.0-47.0) L Mean Corpuscular Volume 110 FL (80-99) H Mean Corpuscular Hemoglobin 32.0 PG (27.0-31.0) H Mean Corpuscular Hemoglobin Concent 29.0 G/DL (32.0-36.0) L Red Cell Distribution Width 30.7 % (11.6-14.8) H Platelet Count 21 K/UL (150-450) #L Mean Platelet Volume 5.4 FL (6.5-10.1) L Neutrophils (%) (Auto) % (45.0-75.0) Lymphocytes (%) (Auto) % (20.0-45.0) Monocytes (%) (Auto) % (1.0-10.0) Eosinophils (%) (Auto) % (0.0-3.0) Basophils (%) (Auto) % (0.0-2.0) Differential Total Cells Counted 100 Neutrophils % (Manual) 70 % (45-75) Lymphocytes % (Manual) 17 % (20-45) L Monocytes % (Manual) 4 % (1-10) Eosinophils % (Manual) 2 % (0-3) Basophils % (Manual) 0 % (0-2) Band Neutrophils 7 % (0-8) Platelet Estimate Decreased L Platelet Morphology Normal Polychromasia Occasional Hypochromasia Occasional Anisocytosis 1+ [place] Cells Occasional Sodium Level 132 mEQ/L (135-145) #L Potassium Level 4.6 mEQ/L (3.4-4.9) Chloride Level 95 mEQ/L (98-107) L Carbon Dioxide Level 4 mEQ/L (20-30) *L Anion Gap 33 (5-15) H Blood Urea Nitrogen 58 mg/dL (7-23) H Creatinine 6.4 mg/dL (0.5-0.9) H Estimat Glomerular Filtration Rate mL/min (>60) Glucose Level 287 mg/dL (74-106) H Calcium Level 7.5 mg/dL (8.6-10.2) L Phosphorus Level 8.6 mg/dL (2.5-4.8) H Magnesium Level 2.4 mg/dL (1.7-2.5) Total Bilirubin 16.8 mg/dL (0.0-1.2) H Direct Bilirubin 11.6 mg/dL (0.1-0.3) H Aspartate Amino Transf (AST/SGOT) 2939 U/L (5-40) H Alanine Aminotransferase (ALT/SGPT) 256 U/L (3-33) H Alkaline Phosphatase 182 U/L (35-104) H Total Protein 3.9 g/dL (6.6-8.7) L Albumin 1.5 g/dL (3.5-5.2) L Globulin 2.4 g/dL Albumin/Globulin Ratio 0.6 (1.0-2.7) L Arterial Blood pH 6.780 (7.350-7.450) Arterial Blood Partial Pressure CO2 25.2 mmHg (35.0-45.0) L Arterial Blood Partial Pressure O2 113.8 mmHg (75.0-100.0) H Arterial Blood HCO3 3.7 mmol/L (22.0-26.0) L Arterial Blood Oxygen Saturation 96.2 % (92.0-98.0) Arterial Blood Base Excess -29.2 Todd Test Positive GENESIS ANDRES May 16, 2016 10:56
[2016-05-16] MEDS ORDERED: Sodium Bicarbonate 8.4% 50ml Carp IV ONE (12:00)
[2016-05-16] MEDS ORDERED: Sodium Bicarbonate 100 ML in NS 1000ml 1,000 ML IV SCH (12:30)
--- NOTE | 2016-05-16 13:55 | Diagnostic Imaging Report ---
Indication: Dyspnea Comparison: 05/15/16 A single view chest radiograph was obtained. Findings: There are bilateral infiltrates in the perihilar regions worse on the left. Findings consistent with pneumonia. Tubes and lines are stable. The current study is limited due to overexposure. Impression: Bilateral infiltrates. No obvious change
--- NOTE | 2016-05-16 14:05 | GI Progress Note ---
Assessment/Plan Problems: (1) End stage liver disease ICD Codes: K72.90 - Hepatic failure, unspecified without coma SNOMED: 485565490 (2) Altered mental status (3) Severe anemia ICD Codes: D64.9 - Anemia, unspecified SNOMED: 685273267 (4) Elevated CEA ICD Codes: R97.0 - Elevated carcinoembryonic antigen [CEA] SNOMED: 07143237, 939027764 (5) Hypoalbuminemia ICD Codes: E88.09 - Other disorders of plasma-protein metabolism, not elsewhere classified SNOMED: 743668989 (6) Thrombocytopenia ICD Codes: D69.6 - Thrombocytopenia SNOMED: 662756531 (7) Anemia ICD Codes: D64.9 - Anemia SNOMED: 070669743 (8) Serum ammonia increased ICD Codes: E72.20 - Disorder of urea cycle metabolism, unspecified SNOMED: 7123613 Status: not improved, unchanged, deteriorating Status Narrative Discussed with Dr. Churchill. Assessment/Plan fu abdominal paracentsis >> r/o SBP s/p EGD 04/04/15 - Gastric AVM elevated iron elevated ammonia >> xifaxan + lactulose poor prognosis monitor H&H, transfuse prn ppi fu labs Subjective Subjective limited Objective Last 24 Hour Vital Signs Date Time Temp Pulse Resp B/P Pulse Ox O2 Delivery O2 Flow Rate FiO2 05/16/16 13:10 82 22 50 05/16/16 12:16 104/28 05/16/16 12:15 97.5 79 21 104/28 97 Mechanical Ventilator 50 05/16/16 12:00 84 05/16/16 12:00 50 05/16/16 11:12 79 23 50 05/16/16 11:04 80 112/35 05/16/16 09:50 80 20 50 05/16/16 08:00 50 05/16/16 08:00 83 05/16/16 07:02 89/28 05/16/16 06:45 81 18 91/28 96 Mechanical Ventilator 50 05/16/16 06:34 81 21 50 05/16/16 06:30 78 18 86/27 96 Mechanical Ventilator 50 05/16/16 06:15 83 18 94/28 96 Mechanical Ventilator 50 05/16/16 06:05 83 98/28 05/16/16 06:00 83 18 95/32 96 Mechanical Ventilator 50 05/16/16 05:55 102/26 05/16/16 05:45 84 18 98/28 96 Mechanical Ventilator 50 05/16/16 05:30 85 18 102/28 96 Mechanical Ventilator 50 05/16/16 05:15 86 19 103/31 91 Mechanical Ventilator 50 05/16/16 05:10 86 23 50 05/16/16 05:00 108/29 05/16/16 05:00 86 19 108/29 91 Mechanical Ventilator 50 05/16/16 04:45 87 19 107/32 91 Mechanical Ventilator 50 05/16/16 04:30 87 19 108/29 91 Mechanical Ventilator 50 05/16/16 04:15 87 19 105/33 91 Mechanical Ventilator 50 05/16/16 04:10 87 112/32 05/16/16 04:00 87 05/16/16 04:00 50 05/16/16 04:00 98.2 87 19 108/31 91 Mechanical Ventilator 50 05/16/16 03:45 88 19 112/32 91 Mechanical Ventilator 50 05/16/16 03:30 88 19 105/28 91 Mechanical Ventilator 50 05/16/16 03:15 83 19 103/29 91 Mechanical Ventilator 50 05/16/16 03:10 87 21 50 05/16/16 03:00 82 19 102/28 91 Mechanical Ventilator 50 05/16/16 03:00 102/05/16/16 02:45 80 19 107/31 91 Mechanical Ventilator 50 05/16/16 02:30 78 18 103/30 93 Mechanical Ventilator 50 05/16/16 02:15 80 18 93/24 93 Mechanical Ventilator 50 05/16/16 02:00 77 18 93/24 93 Mechanical Ventilator 50 05/16/16 02:00 93/24 05/16/16 01:58 74/28 05/16/16 01:45 77 18 90/34 93 Mechanical Ventilator 50 05/16/16 01:30 70 18 74/28 96 Mechanical Ventilator 50 05/16/16 01:15 77 18 76/29 93 Mechanical Ventilator 50 05/16/16 01:00 92/32 05/16/16 01:00 78 18 92/32 93 Mechanical Ventilator 50 05/16/16 00:53 131 23 50 05/16/16 00:45 127 18 91/33 93 Mechanical Ventilator 50 05/16/16 00:30 127 18 87/41 93 Mechanical Ventilator 50 05/16/16 00:15 130 18 86/37 93 Mechanical Ventilator 50 05/16/16 00:00 97.7 127 18 93/42 93 Mechanical Ventilator 50 05/16/16 00:00 93/42 05/16/16 00:00 50 05/16/16 00:00 127 05/15/16 23:45 130 18 85/35 93 Mechanical Ventilator 50 05/15/16 23:30 137 21 50 05/15/16 23:30 132 18 86/38 93 Mechanical Ventilator 50 05/15/16 23:15 129 18 83/42 93 Mechanical Ventilator 50 05/15/16 23:00 130 20 88/46 99 Mechanical Ventilator 50 05/15/16 22:45 121 19 78/37 93 Mechanical Ventilator 50 05/15/16 22:34 121 57/19 05/15/16 22:30 121 18 79/27 94 Mechanical Ventilator 50 05/15/16 22:15 121 17 57/19 92 Mechanical Ventilator 50 05/15/16 22:00 123 17 55/33 92 Mechanical Ventilator 50 05/15/16 21:45 124 19 83/42 96 Mechanical Ventilator 50 05/15/16 21:30 125 18 83/42 96 Mechanical Ventilator 50 05/15/16 21:15 126 23 87/44 96 Mechanical Ventilator 50 05/15/16 21:00 125 23 82/44 96 Mechanical Ventilator 50 05/15/16 20:56 82/44 05/15/16 20:52 121 23 50 05/15/16 20:45 124 23 81/39 96 Mechanical Ventilator 50 05/15/16 20:30 125 23 82/44 95 Mechanical Ventilator 50 05/15/16 20:15 126 23 87/33 96 Mechanical Ventilator 50 05/15/16 20:00 98.6 125 22 87/47 100 Mechanical Ventilator 50 05/15/16 20:00 50 05/15/16 20:00 122 05/15/16 19:45 125 20 94/47 96 Mechanical Ventilator 50 05/15/16 19:30 126 20 87/47 96 Mechanical Ventilator 50 05/15/16 19:15 122 21 89/59 96 Mechanical Ventilator 50 05/15/16 19:00 125 21 88/44 96 Mechanical Ventilator 50 05/15/16 19:00 133 21 50 05/15/16 18:45 125 21 84/44 96 Mechanical Ventilator 50 05/15/16 18:30 124 21 83/43 96 Mechanical Ventilator 50 05/15/16 18:15 129 22 81/39 96 Mechanical Ventilator 50 05/15/16 18:00 131 23 52/36 96 Mechanical Ventilator 50 05/15/16 18:00 52/36 05/15/16 17:57 132 66/35 05/15/16 17:45 133 23 66/34 96 Mechanical Ventilator 50 05/15/16 17:33 132 23 50 05/15/16 17:30 132 22 62/42 96 Mechanical Ventilator 50 05/15/16 17:15 132 23 58/37 96 Mechanical Ventilator 50 05/15/16 17:00 133 21 76/43 96 Mechanical Ventilator 50 05/15/16 17:00 76/43 05/15/16 16:45 132 23 69/37 96 Mechanical Ventilator 50 05/15/16 16:30 149 22 70/41 96 Mechanical Ventilator 50 05/15/16 16:15 97.9 149 23 70/42 94 Mechanical Ventilator 50 05/15/16 16:00 50 05/15/16 16:00 149 23 67/33 94 Mechanical Ventilator 50 05/15/16 16:00 67/33 05/15/16 16:00 160 05/15/16 15:45 132 23 53/30 94 Mechanical Ventilator 50 05/15/16 15:30 135 23 65/29 94 Mechanical Ventilator 50 05/15/16 15:15 137 23 69/32 95 Mechanical Ventilator 50 05/15/16 15:00 139 23 73/30 100 Mechanical Ventilator 50 05/15/16 15:00 72/36 05/15/16 15:00 72/36 05/15/16 15:00 73/30 05/15/16 15:00 139 20 50 05/15/16 14:45 136 18 76/53 100 Mechanical Ventilator 50 Intake and Output 05/15/16 05/16/16 19:00 07:00 Intake Total 2415.0 ml 2637.0 ml Output Total 0 ml 5 ml Balance 2415.0 ml 2632.0 ml Free Water 50 ml 50 ml IV Total 2365.0 ml 2517.0 ml Other 70 ml Output Urine Total 0 ml 5 ml # Bowel Movements 1 Laboratory Tests Test 05/16/16 04:50 05/16/16 10:00 White Blood Count 26.0 K/UL (4.8-10.8) #*H Red Blood Count 2.32 M/UL (4.20-5.40) L Hemoglobin 7.4 G/DL (12.0-16.0) L Hematocrit 25.6 % (37.0-47.0) L Mean Corpuscular Volume 110 FL (80-99) H Mean Corpuscular Hemoglobin 32.0 PG (27.0-31.0) H Mean Corpuscular Hemoglobin Concent 29.0 G/DL (32.0-36.0) L Red Cell Distribution Width 30.7 % (11.6-14.8) H Platelet Count 21 K/UL (150-450) #L Mean Platelet Volume 5.4 FL (6.5-10.1) L Neutrophils (%) (Auto) % (45.0-75.0) Lymphocytes (%) (Auto) % (20.0-45.0) Monocytes (%) (Auto) % (1.0-10.0) Eosinophils (%) (Auto) % (0.0-3.0) Basophils (%) (Auto) % (0.0-2.0) Differential Total Cells Counted 100 Neutrophils % (Manual) 70 % (45-75) Lymphocytes % (Manual) 17 % (20-45) L Monocytes % (Manual) 4 % (1-10) Eosinophils % (Manual) 2 % (0-3) Basophils % (Manual) 0 % (0-2) Band Neutrophils 7 % (0-8) Platelet Estimate Decreased L Platelet Morphology Normal Polychromasia Occasional Hypochromasia Occasional Anisocytosis 1+ Karlos Cells Occasional Sodium Level 132 mEQ/L (135-145) #L Potassium Level 4.6 mEQ/L (3.4-4.9) Chloride Level 95 mEQ/L (98-107) L Carbon Dioxide Level 4 mEQ/L (20-30) *L Anion Gap 33 (5-15) H Blood Urea Nitrogen 58 mg/dL (7-23) H Creatinine 6.4 mg/dL (0.5-0.9) H Estimat Glomerular Filtration Rate mL/min (>60) Glucose Level 287 mg/dL (74-106) H Calcium Level 7.5 mg/dL (8.6-10.2) L Phosphorus Level 8.6 mg/dL (2.5-4.8) H Magnesium Level 2.4 mg/dL (1.7-2.5) Total Bilirubin 16.8 mg/dL (0.0-1.2) H Direct Bilirubin 11.6 mg/dL (0.1-0.3) H Aspartate Amino Transf (AST/SGOT) 2939 U/L (5-40) H Alanine Aminotransferase (ALT/SGPT) 256 U/L (3-33) H Alkaline Phosphatase 182 U/L (35-104) H Total Protein 3.9 g/dL (6.6-8.7) L Albumin 1.5 g/dL (3.5-5.2) L Globulin 2.4 g/dL Albumin/Globulin Ratio 0.6 (1.0-2.7) L Arterial Blood pH 6.780 (7.350-7.450) Arterial Blood Partial Pressure CO2 25.2 mmHg (35.0-45.0) L Arterial Blood Partial Pressure O2 113.8 mmHg (75.0-100.0) H Arterial Blood HCO3 3.7 mmol/L (22.0-26.0) L Arterial Blood Oxygen Saturation 96.2 % (92.0-98.0) Arterial Blood Base Excess -29.2 Todd Test Positive Height (Feet): 5 Height (Inches): 6.00 Weight (Pounds): 169 General Appearance: cachetic Cardiovascular: normal rate Respiratory/Chest: other - mech vent Abdominal Exam: soft Objective Date of Service: 04/03/16 Endoscopy Procedure Note Indication for Procedure: gib Procedures Performed: EGD Operative Findings/Diagnosis: Gastric avm MICHAELA CHURCHILL - Apr 04, 2016 10:09 aMris Ramirez N.P. May 16, 2016 14:05
[2016-05-16] MEDS ORDERED: D5W 275ml ONE (14:27)
[2016-05-16] MEDS ORDERED: Tubing IV Secondary IV ONE ×2 (14:27→17:14)
--- NOTE | 2016-05-16 16:19 | Cardiology Report ---
APPROVED REPORT EKG Measurement Heart [id number] IN [id number] [id number] Normal sinus rhythm Moderate voltage criteria for LVH, may be normal variant Possible Lateral infarct, age undetermined Abnormal ECG
[2016-05-16] MEDS ORDERED: Artificial Tears 1.4% Op Soln BOTH EYES PRN (16:45)
[2016-05-16] MEDS ORDERED: Morphine Sulfate 10mg/ml Inj IVP ONE (16:45)
[2016-05-16] MEDS ORDERED: Glycopyrrolate 0.2mg/ml 1ml Vial IV PRN (16:45)
[2016-05-16] MEDS ORDERED: Prochlorperazine 10mg tab ORAL PRN (16:45)
[2016-05-16] MEDS ORDERED: Haloperidol 5mg/ml Inj IM PRN (16:45)
[2016-05-16] MEDS ORDERED: PCA Morphine 1mg/ml 30 ML IV PRN (17:30)
[2016-05-16] MEDS ORDERED: Rate Change Narcotic Drip MISC PRN (17:30)
[2016-05-16] MEDS ORDERED: Morphine Sulfate 4mg/ml Inj SUBQ PRN (17:30)
[2016-05-16] MEDS ORDERED: Narcotic Shift Volume MISC SCH (17:30)
--- NOTE | 2016-05-21 00:48 | Discharge Summary 2 SIG ---
DATE OF ADMISSION: 05/10/2016 DATE OF DISCHARGE: 05/16/2016 REASON FOR ADMISSION AND HISTORY OF PRESENT ILLNESS: 75-year-old female was brought by the paramedics after an increase in altered level of consciousness. The patient had a history of diabetes and liver disease. Blood sugar in the field was in 50th. The patient was given by the paramedics IV dextrose without change in mental status. The patient had a prior history of cirrhosis and renal disease. The patient was previously on lactulose. She was noted to have increased confusion compared to the baseline. Workup in the emergency room revealed elevated ammonia of 136, severely elevated bilirubin: total- 23.2 and direct - 15.5. AST - 123 and ALT -24. Thrombocytopenia and coagulopathy, INR of 2.1. Elevated lactic acid - 4.0. Renal failure with BUN -49 and creatinine -5.3. Anemia: hemoglobin -9.2 and hematocrit -30. Troponin was negative. Pro BNP was 2036. Chest x-ray revealed poor inspiration, central bronchovascular crowding and linear bibasilar atelectasis. The patient was admitted for further management. ADMITTING DIAGNOSES: 1. Probable sepsis. 2. Hepatic encephalopathy. 3. Lactic acidosis. 4. Urinary tract infection. 5. Cirrhosis. 6. End-stage liver disease (with coagulopathy, thrombocytopenia and hypoalbuminemia. 7. Elevated bilirubin. 8. Chronic renal disease. 9. Anemia of chronic disease. 10. History of elevated CEA and AFR, possibly malignancy. HOSPITAL STAY: The patient was admitted to [facility]. Supplemental oxygen and pulmonary toilet provided. The patient was NPO. NG tube inserted. CT of the head revealed no acute intracranial pathology. The patient was started on empiric antibiotics. The patient was started on rifaximin and lactulose. GI followed. Vitamin K x1 given. Renal parameters were closely monitored with avoiding of nephrotoxic. Renal ultrasound revealed no hydronephrosis but demonstrated increased left kidney echogenicity consistent with medical renal disease. Echocardiogram revealed ejection fraction of 60% to 65%, right ventricular systolic pressure of 43 consistent with mild pulmonary hypertension as well as moderate tricuspid regurgitation. Hemoglobin and hematocrit were closely monitored. Anemia workup initiated. Venous Duplex bilateral lower extremities was negative. The patient was started on SCD prophylaxis. No heparin due to the thrombocytopenia. [employer] Operator and GI closely followed the patient. The patient's condition slowly deteriorated. Itz shaw was called on 05/14/2016 , and the patient required oral intubation and placement to intensive care unit for further management, started on pressors. During intubation evidence of aspiration. Ventilator support and pulmonary toilet provided. Chest x-ray n3 day revealed worsening parenchymal disease. The patient likely had aspiration pneumonia. WBC with significant trend up, on . Consistently elevated total and direct bilirubin, without changes , significant trend up ( up to 5 times) in ALT/AST . Renal parameters worsened. [employer] Operator closely followed. The patient was not hemodynamically stable to start hemodialysis. Overall, the patient's prognosis was poor. Further prognosis, care and the fact that the treatment appeared to be futile, discussed with patient's daughter. Code status changed to DNR. Family agreed to terminal extubation, which was done on 05/16/2016. The patient was started on morphine drip. The patient pronounced at 1715 on . Cause of - cardiopulmonary arrest. FINAL DIAGNOSES: 1. Severe sepsis. 2. Septic shock 2. Acute renal failure on chronic renal insufficiency. 4. Possibly hepatorenal syndrome. 5. Status post cardiopulmonary arrest. 6. Acute hypoxemic respiratory failure, requiring intubation 7. Aspiration pneumonia. 8. Urinary tract infection. 9. End-stage liver disease. 10.Acute on chronic hepatic encephalopathy. 11. Anemia of chronic disease. 12. Mild pulmonary hypertension. 13. History of elevated CEA and AFP, possible malignancy. Yana Segura M.D. Liz LeblancMorgan Stanley Children'S Hospitalsheri N.P. DR: Sanjay JOB#: [id number] CC: YANCY
== END 2016-05-16 17:15 | disposition expired | DRG 720 ==
LOC: ENRESERVDT → ENRESERVTM → EDBD 18:50 → EMR 18:55 → 2W 19:24 → EDBEDREQ 20:53 → 4W 05-13 07:08 → ICU 05-14 20:35
PROC: 5A1945Z Respiratory Ventilation, 24-96 Consecutive Hours (ICD-10-PCS; principal; 2016-05-14)
PROC: 5A12012 Performance of Cardiac Output, Single, Manual (ICD-10-PCS; 2016-05-14)
PROC: 0BH17EZ Insertion of Endotracheal Airway into Trachea, Via Natural or Artificial Opening (ICD-10-PCS; 2016-05-14)
DX: A41.9 Sepsis, unspecified organism (principal); J96.00 Acute respiratory failure, unspecified whether with hypoxia or hypercapnia; K72.00 Acute and subacute hepatic failure without coma; J69.0 Pneumonitis due to inhalation of food and vomit; N17.9 Acute kidney failure, unspecified; E87.2 Acidosis; D69.6 Thrombocytopenia, unspecified; D68.4 Acquired coagulation factor deficiency; K74.60 Unspecified cirrhosis of liver; E88.09 Other disorders of plasma-protein metabolism, not elsewhere classified; N39.0 Urinary tract infection, site not specified; F25.9 Schizoaffective disorder, unspecified; D64.9 Anemia, unspecified; D63.8 Anemia in other chronic diseases classified elsewhere; N18.9 Chronic kidney disease, unspecified; K86.9 Disease of pancreas, unspecified; R97.0 Elevated carcinoembryonic antigen [CEA]; R65.20 Severe sepsis without septic shock; Z66 Do not resuscitate; E11.9 Type 2 diabetes mellitus without complications; I12.9 Hypertensive chronic kidney disease with stage 1 through stage 4 chronic kidney disease, or unspecified chronic kidney disease
CPT/HCPCS: 36415; 36600; 70450; 71010; 74000; 76775; 80048; 80053; 80061; 81003; 82140; 82248; 82533; 82550; 82553; 82607; 82728; 82747; 82803; 82962; 82977; 83540; 83550; 83605; 83735; 83880; 84100; 84300; 84439; 84443; 84481; 84484; 84550; 85007; 85025; 85610; 85730; 86140; 87040; 87081; 87086; 87181; 89050; 92950; 93005; 93306; 93970; 94002; 94003; J2370